=== PATIENT | female | born 1960 | race Caucasian/White ===

== ENCOUNTER 2017-10-22 19:14 | Emergency (ER) | payer MEDICAID ==
[2017-10-22] MEDS ORDERED: HYDROcod/ACETAM 5/325 MG TABLET PO STA (19:37)
--- NOTE | 2017-10-22 19:41 | ED Physician Documentation ---
PD HPI UPPER EXT INJURY - Stated complaint Stated Complaint: R ARM PAIN - Chief complaint Chief Complaint: Ext Problem - History obtained from History obtained from: Patient - History of Present Illness Location: Other (57-year-old woman on multiple psychiatric medications but none new, also a diuretic. She is feeling dizzy all day especially if she stood up she felt lightheaded and felt like she had to sit back down. She had a dizzy episode and slipped and fell injuring her left wrist, no other injuries. No associated chest pain, trouble breathing, or headache.) Review of Systems Constitutional: denies: Fever, Chills Nose: denies: Rhinorrhea / runny nose, Congestion Throat: denies: Sore throat Cardiac: denies: Chest pain / pressure, Palpitations Respiratory: denies: Dyspnea, Cough PD PAST MEDICAL HISTORY - Past Medical History Past Medical History: Yes Psych: Other - Present Medications Home Medications: Ambulatory Orders Medication Instructions Recorded Confirmed Acetaminophen/Diphenhydramine 1 tab PO DAILY 10/22/17 [Tylenol Pm Ex-Strength Caplet] DULoxetine [Cymbalta] 30 mg PO BID 10/22/17 Gabapentin 1,200 mg PO DAILY 10/22/17 lamoTRIgine [Lamictal] 300 mg PO DAILY 10/22/17 rOPINIRole [Requip] 2 tab PO DAILY 10/22/17 - Allergies Allergies/Adverse Reactions: Allergies Allergy/AdvReac Type Severity Reaction Status Date / Time codeine Allergy Emesis Verified 10/22/17 19:25 Sulfa (Sulfonamide Allergy Emesis Verified 10/22/17 19:25 Antibiotics) - Social History Smoking Status: Current every day smoker Does the pt drink ETOH?: Yes ETOH Use: Wine PD ED PE NORMAL - Vitals Vital signs reviewed: Yes - General General: Alert and oriented X 3, No acute distress - HEENT HEENT: PERRL, EOMI - Neck Neck: Supple, no meningeal sign, No bony TTP - Cardiac Cardiac: RRR, No murmur - Respiratory Respiratory: No respiratory distress, Clear bilaterally - Abdomen Abdomen: Normal bowel sounds, Soft, Non tender - Extremities Extremities: Other (Mild tenderness to the right distal radius and elbow without deformity or swelling. Good range of motion. NVI in the hand.) - Neuro Neuro: Alert and oriented X 3, Normal speech Results - Vitals Vitals: Vital Signs - 24 hr 10/22/17 10/22/17 10/22/17 19:21 19:39 19:42 Temperature 37.4 C Heart Rate 93 Heart Rate [ 86 92 Supine] Respiratory 16 Rate Blood Pressure 161/93 H Blood Pressure 141/88 H 128/80 [Supine] O2 Saturation 100 10/22/17 10/22/17 19:44 20:48 Temperature 36.6 C Heart Rate 80 Heart Rate [ 98 Supine] Respiratory 20 Rate Blood Pressure 125/76 Blood Pressure 137/95 H [Supine] O2 Saturation 93 Oxygen O2 Source Room air - EKG (time done) 193 Rate: Rate (enter#) (84) Rhythm: NSR, LAE [place]: Normal Intervals: Normal NM QRS: Normal Ischemia: Normal ST segments Compare to prior EKG: Old EKG unavailable Computer interpretation: Agree with computer - Labs Labs: Laboratory Tests 10/22/17 10/22/17 19:50 19:50 WBC 10.8 RBC 4.52 Hgb 14.2 Hct 42.1 MCV 93.2 MCH 31.4 H MCHC 33.7 RDW 12.7 Plt Count 352 MPV 8.1 Neut # 6.6 Lymph # 3.0 Eddy # 0.7 Eos # 0.4 Baso # 0.1 Absolute Nucleated RBC 0.01 Nucleated RBC % 0.1 Sodium 138 Potassium 3.4 L Chloride 102 Carbon Dioxide 29 Anion Gap 7.0 BUN 10 Creatinine 0.8 Estimated GFR (MDRD) 74 L Glucose 86 Calcium 9.1 Total Bilirubin 0.2 AST 22 ALT 18 Alkaline Phosphatase 78 Total Protein 6.9 Albumin 3.9 Globulin 3.0 Albumin/Globulin Ratio 1.3 Lipase 18 L Ethyl Alcohol < 5.0 - Rads (name of study) XR R wrist and elbow Radiology: EMP read contemporaneously (NAD) PD MEDICAL DECISION MAKING - ED course ED course: 57-year-old woman with symptoms dizzy episodes today. Could be from medications or dehydration. Lab work and EKG are unremarkable. Also has injuries after a fall but x-rays negative. The patient and family were counseled as to the diagnosis and need for follow- up. I counseled the patient with regard to signs and symptoms that would necessitate an urgent reevaluation in the emergency department. They understand they are welcome to return at any time if worse or if not improving as expected. This document was made in part using voice recognition software. While efforts are made to proofread this documents, sound alike and grammatical errors may occur. Departure - Departure Disposition: 01 Home, Self Care Clinical Impression: Dizzy Fall Qualifiers: Encounter type: initial encounter Qualified Code(s): W19.XXXA - Unspecified fall, initial encounter Right wrist sprain Qualifiers: Encounter type: initial encounter Qualified Code(s): S63.501A - Unspecified sprain of right wrist, initial encounter Condition: Good Record reviewed to determine appropriate education?: Yes Instructions: ED Near Syncope Unkn, ED Sprain Wrist Comments: Call your doctor to arrange a follow-up appointment, make the next available appointment. In the interim, return anytime if worse or if new symptoms develop. Your blood pressure was elevated today on check into the emergency department. This does not mean that you have hypertension, it is a common phenomenon to come to the emergency department and have elevated blood pressure. I recommend that you see your primary care physician within the week to have it rechecked when you are feeling better. Discharge Date/Time: 10/22/17 20:49
[2017-10-22] MEDS ORDERED: ACETAMINOPHEN 325 MG TABLET PO STA (19:50)
--- NOTE | 2017-10-22 20:11 | XRAY Preliminary Report ---
Exam: XR ELBOW 3 VIEW RT IMPRESSION: 1. No fracture or malalignment. 2. No effusions. Mild posterior apical swelling. [facility] SITE ID: [id number]
--- NOTE | 2017-10-22 20:15 | XRAY Preliminary Report ---
Exam: XR WRIST 4 VIEW RT IMPRESSION: 1. No fracture or malalignment. 2. Moderate first carpal metacarpal joint arthritis. [facility] SITE ID: [id number]
[2017-10-22 20:18] LABS: BASOPHILS # (AUTO) 0.1 10^3/uL (0.0-0.1); BASOPHILS % (AUTO) 1.1 %; EOSINOPHILS # (AUTO) 0.4 10^3/uL (0.0-0.7); EOSINOPHILS % (AUTO) 3.4 %; HGB - HEMOGLOBIN 14.2 g/dL (12.0-16.0); MEAN CORPUSCULAR HEMOGLOBIN 31.4 pg (27.0-31.0); MEAN CORPUSCULAR HGB CONC 33.7 g/dL (32.0-36.0); MEAN CORPUSCULAR VOLUME 93.2 fL (81.0-99.0); MEAN PLATELET VOLUME 8.1 fL (7.9-10.8); MONOCYTES # (AUTO) 0.7 10^3/uL (0.0-1.0); MONOCYTES % (AUTO) 6.6 %; NEUTROPHILS # (AUTO) 6.6 10^3/uL (1.5-6.6); NEUTROPHILS % (AUTO) 60.9 %; PLT - PLATELET COUNT 352 10^3/uL (130-450); RED BLOOD COUNT 4.52 10^6/uL (4.20-5.40); RED CELL DISTRIBUTION WIDTH 12.7 % (12.0-15.0); WHITE BLOOD COUNT 10.8 x10^3/uL (4.8-10.8)
[2017-10-22 20:29] LABS: ALBUMIN 3.9 g/dL (3.2-5.5); ALBUMIN/GLOBULIN RATIO 1.3 (1.0-2.2); ALKALINE PHOSPHATASE 78 IU/L (42-121); ALT ALANINE AMINOTRANSFERASE 18 IU/L (10-60); AST ASPARTATE AMINOTRANSFERASE 22 IU/L (10-42); BILIRUBIN,TOTAL 0.2 mg/dL (0.2-1.0); BUN - BLOOD UREA NITROGEN 10 mg/dL (6-20); CALCIUM 9.1 mg/dL (8.5-10.3); CARBON DIOXIDE - CO2 29 mmol/L (21-32); CHLORIDE 102 mmol/L (101-111); CREATININE 0.8 mg/dL (0.4-1.0); GFR - MDRD 74 (>89); GLUCOSE 86 mg/dL (70-100); LIPASE 18 U/L (22-51); SODIUM 138 mmol/L (135-145); TOTAL PROTEIN 6.9 g/dL (6.7-8.2)
--- NOTE | 2017-10-22 20:45 | XRAY Report ---
EXAM: RIGHT ELBOW RADIOGRAPHY EXAM DATE: 10/22/2017 07:48 PM. CLINICAL HISTORY: Fall, elbow and wrist injury. COMPARISON: None. TECHNIQUE: 3 views. FINDINGS: Bones: Normal. No fractures or bone lesions. Joints: Normal. No effusion. No subluxation. Soft Tissues: Mild posterior right elbow swelling. No large effusion. IMPRESSION: 1. No fracture or malalignment. 2. No effusions. Mild posterior elbow swelling. [facility] Referring Provider Line: [phone] SITE ID: [id number]
--- NOTE | 2017-10-22 20:46 | XRAY Report ---
EXAM: RIGHT WRIST RADIOGRAPHY EXAM DATE: 10/22/2017 07:48 PM. CLINICAL HISTORY: Fall, elbow and wrist injury. COMPARISON: None. TECHNIQUE: 3 views. FINDINGS: Bones: Normal. No fractures or bone lesions. Joints: No dislocation. Moderate first carpometacarpal joint arthritis. Soft Tissues: Normal. No soft tissue swelling. IMPRESSION: 1. No fracture or malalignment. 2. Moderate first carpometacarpal joint arthritis. [facility] Referring Provider Line: [phone] SITE ID: [id number]
[2017-10-22 20:49] VITALS: BP 125/76
== END 2017-10-22 20:49 | disposition home or self-care (01) ==
LOC: ED 19:14
DX: R42 Dizziness and giddiness (principal); S63.501A Unspecified sprain of right wrist, initial encounter; W01.0XXA Fall on same level from slipping, tripping and stumbling without subsequent striking against object, initial encounter; R03.0 Elevated blood-pressure reading, without diagnosis of hypertension; R94.31 Abnormal electrocardiogram [ECG] [EKG]; F17.200 Nicotine dependence, unspecified, uncomplicated
CPT/HCPCS: 36415; 73080; 73110; 80053; 80320; 83690; 85025; 99283; 99284; A9270

== ENCOUNTER 2017-10-23 14:32 | Emergency (ER) | payer MEDICAID ==
[2017-10-23] MEDS ORDERED: HYDROcod/ACETAM 5/325 MG TABLET PO STA (15:44)
--- NOTE | 2017-10-23 16:15 | XRAY Report ---
EXAM: RIGHT WRIST RADIOGRAPHY EXAM DATE: 10/23/2017 04:06 PM. CLINICAL HISTORY: Wrist pain persists since fall yesterday, injuring right wrist. COMPARISON: 10/22/2017. TECHNIQUE: 3 views. FINDINGS: Bones: Normal. No fractures or bone lesions. Joints: Degenerative narrowing, sclerosis, and spurring at the first carpometacarpal joint. No sublux ations. Soft Tissues: Unremarkable. IMPRESSION: 1. No acute bony abnormalities. 2. Osteoarthritis at the first carpometacarpal joint. [facility] Referring Provider Line: [phone] SITE ID: [id number]
--- NOTE | 2017-10-23 16:18 | ED Physician Documentation ---
PD HPI UPPER EXT INJURY - Stated complaint Stated Complaint: GLF/R HAND INJ - Chief complaint Chief Complaint: Trauma Ext - History obtained from History obtained from: Patient - History of Present Illness Location: Right, Wrist Type of injury: Fall Where injury occurred: Home Timing - onset: Today, Last night Worsened by: Moving, Palpating Associated symptoms: Swelling. No: Weakness, Numbness Recently seen: Emergency Dept - Additonal information Additional information: The patient is a 57-year-old female who presents with pain in her right wrist. She fell yesterday impacting her right wrist on the sidewalk when she fell. She was seen here after that fall, and an x-ray of the right wrist was negative. She presents now because she fell again last night, again impacting her right wrist. She is right hand dominant. She denies any other injuries. She reports episodes of feeling "dizzy," which she more specifically describes as feeling off balance. This usually occurs when she stands up too rapidly, and the incident last night occurred after she had been bending over and then sat up. She denies any recent use of alcohol or other drugs. Her medications include gabapentin and Lamictal. She denies chest pain, shortness of breath, headache, nausea or vomiting. She does report chronic cough from cigarette smoking. Review of Systems Constitutional: denies: Fever Eyes: denies: Decreased vision Ears: denies: Tinnitus/ringing Nose: denies: Congestion Throat: denies: Sore throat Cardiac: denies: Chest pain / pressure, Palpitations Respiratory: reports: Cough (Chronically, with no recent change.). denies: Dyspnea GI: denies: Abdominal Pain, Nausea, Vomiting : denies: Dysuria Skin: denies: Rash Musculoskeletal: reports: Joint pain (right wrist) Neurologic: denies: Focal weakness, Numbness, Altered mental status, Headache PD PAST MEDICAL HISTORY - Past Medical History Cardiovascular: None Respiratory: Emphysema Neuro: None Endocrine/Autoimmune: None Psych: Other - Past Surgical History Past Surgical History: Yes General: Hiatal hernia repair /[facility] [facility]: 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 - Present Medications Home Medications: Ambulatory Orders Medication Instructions Recorded Confirmed Acetaminophen/Diphenhydramine 1 tab PO DAILY 10/22/17 [Tylenol Pm Ex-Strength Caplet] DULoxetine [Cymbalta] 30 mg PO BID 10/22/17 Gabapentin 1,200 mg PO DAILY 10/22/17 lamoTRIgine [Lamictal] 300 mg PO DAILY 10/22/17 rOPINIRole [Requip] 2 tab PO DAILY 10/22/17 traMADol [Ultram] 50 mg PO Q4-6H PRN #12 tablet 10/23/17 - Allergies Allergies/Adverse Reactions: Allergies Allergy/AdvReac Type Severity Reaction Status Date / Time codeine Allergy Emesis Verified 10/22/17 19:25 Sulfa (Sulfonamide Allergy Emesis Verified 10/22/17 19:25 Antibiotics) - Social History Does the pt smoke?: Yes Smoking Status: Current every day smoker Does the pt drink ETOH?: Yes Does the pt have substance abuse?: No - Immunizations Immunizations are current?: Yes - POLST Patient has POLST: No PD ED PE NORMAL - Vitals Vital signs reviewed: Yes (normal) - General General: Alert and oriented X 3, Well developed/nourished, Other (frail- appearing) - HEENT HEENT: Atraumatic, EOMI, Pharynx benign - Neck Neck: No adenopathy, No JVD - Cardiac Cardiac: RRR, No murmur - Respiratory Respiratory: Clear bilaterally - Abdomen Abdomen: Soft, Non tender - Back Back: No CVA TTP, No spinal TTP - Derm Derm: No rash - Extremities Extremities: Other (There is ecchymosis over the volar aspect of the right wrist , with associated tenderness to palpation. There is no deformity or break in the integument. Distal neurovascular is intact.) - Neuro Neuro: Alert and oriented X 3, No motor deficit, No sensory deficit, Normal speech Results - Vitals Vitals: Oxygen O2 Source Room air - Rads (name of study) right wrist Radiology: Prelim report reviewed, EMP read contemporaneously, See rad report ( No acute bony abnormality. Osteoarthritis first MCP joint.) PD MEDICAL DECISION MAKING - ED course Complexity details: reviewed old records, reviewed results, re-evaluated patient , considered differential, d/w patient ED course: The patient's presentation is significant for contusion to her right wrist, without evidence of fracture on x-ray examination. The cause of her recurrent fall may have to do with the medication she takes, including gabapentin. While in the emergency department she demonstrated ability to ambulate without any difficulty with her balance, or any lightheadedness. I offered a Velcro wrist splint, but the patient preferred to have an Frank compression bandage. She is being discharged with a prescription for tramadol, 12 tablets. I discussed with her the results of her x-ray, symptomatic treatment and outpatient follow- up, as well as potentially worrisome signs or symptoms that should prompt reevaluation in the emergency department. Departure - Departure Disposition: 01 Home, Self Care Clinical Impression: Contusion of right wrist, initial encounter Fall Qualifiers: Encounter type: initial encounter Qualified Code(s): W19.XXXA - Unspecified fall, initial encounter Condition: Stable Instructions: ED Contusion Upper Ext Follow-Up: [facility] [Provider Group] Prescriptions: traMADol [Ultram] 50 mg PO Q4-6H PRN #12 tablet PRN Reason: Pain Comments: Keep your right hand elevated above the level of your heart as much the time as possible. Use the Frank wrap if it provides comfort. You can use Tylenol or ibuprofen if needed for pain. He can also use tramadol as prescribed if needed for pain. Follow up with your primary physician within 2 weeks. Call to schedule an appointment. Return to the emergency department if you develop increasing pain or otherwise worsening symptoms. Discharge Date/Time: 10/23/17 17:30
[2017-10-23 17:29] VITALS: BP 104/71
== END 2017-10-23 17:30 | disposition home or self-care (01) ==
LOC: ED 14:32
DX: S60.211A Contusion of right wrist, initial encounter (principal); W01.0XXA Fall on same level from slipping, tripping and stumbling without subsequent striking against object, initial encounter; Y92.480 Sidewalk as the place of occurrence of the external cause; Y92.009 Unspecified place in unspecified non-institutional (private) residence as the place of occurrence of the external cause; F17.200 Nicotine dependence, unspecified, uncomplicated
CPT/HCPCS: 73110; 99283; A9270

== ENCOUNTER 2017-11-19 09:00 | Outpatient (CLI) | payer MEDICAID ==
[2017-11-19 13:04] LABS: BASOPHILS # (AUTO) 0.1 10^3/uL (0.0-0.1); BASOPHILS % (AUTO) 1.3 %; EOSINOPHILS # (AUTO) 1.4 10^3/uL (0.0-0.7); EOSINOPHILS % (AUTO) 12.6 %; HGB - HEMOGLOBIN 15.5 g/dL (12.0-16.0); LYMPHOCYTES # (AUTO) 3.7 10^3/uL (1.5-3.5); MEAN CORPUSCULAR HEMOGLOBIN 31.4 pg (27.0-31.0); MEAN CORPUSCULAR HGB CONC 33.1 g/dL (32.0-36.0); MEAN CORPUSCULAR VOLUME 94.7 fL (81.0-99.0); MEAN PLATELET VOLUME 9.5 fL (7.9-10.8); MONOCYTES % (AUTO) 8.7 %; NEUTROPHILS # (AUTO) 4.9 10^3/uL (1.5-6.6); NEUTROPHILS % (AUTO) 44.4 %; PLT - PLATELET COUNT 334 10^3/uL (130-450); RED BLOOD COUNT 4.95 10^6/uL (4.20-5.40); RED CELL DISTRIBUTION WIDTH 12.4 % (12.0-15.0); WHITE BLOOD COUNT 11.1 x10^3/uL (4.8-10.8)
[2017-11-19 13:17] LABS: ALBUMIN 3.7 g/dL (3.2-5.5); ALBUMIN/GLOBULIN RATIO 1.4 (1.0-2.2); ALKALINE PHOSPHATASE 76 IU/L (42-121); ALT ALANINE AMINOTRANSFERASE 18 IU/L (10-60); AST ASPARTATE AMINOTRANSFERASE 20 IU/L (10-42); BILIRUBIN,TOTAL 0.3 mg/dL (0.2-1.0); BUN - BLOOD UREA NITROGEN 11 mg/dL (6-20); CALCIUM 8.7 mg/dL (8.5-10.3); CARBON DIOXIDE - CO2 23 mmol/L (21-32); CHLORIDE 111 mmol/L (101-111); CHOLESTEROL 209 mg/dL; CREATININE 0.7 mg/dL (0.4-1.0); GFR - MDRD 86 (>89); GLUCOSE 98 mg/dL (70-100); HDL CHOLESTEROL 52 mg/dL; LDL CHOLESTEROL,CALCULATED 146 mg/dL; LDL/HDL RATIO 2.8 (<4.4); SODIUM 141 mmol/L (135-145); TOTAL PROTEIN 6.4 g/dL (6.7-8.2); VLDL CHOLESTEROL 11 mg/dL
[2017-11-19 13:25] LABS: PLATELET ESTIMATE, MANUAL NORMAL (130-450,000) (NORMAL); PLATELET MORPHOLOGY NORMAL APPEARANCE (NORMAL); RBC MORPHOLOGY (MULTIPLE) NORMAL APPEARANCE (NORMAL)
== END 2017-11-19 09:01 | disposition home or self-care (01) ==
LOC: LAB.N 09:00
PROVIDERS: ATTEND Physician Assistant Medical
DX: Z00.00 Encounter for general adult medical examination without abnormal findings (principal)
CPT/HCPCS: 36415; 80050; 80061; 82306; 83721

== ENCOUNTER 2017-12-07 01:14 | Outpatient (CLI) | payer MEDICAID | END 2017-12-07 01:15 | disposition critical access hospital (66) | LOC: EMS 01:14 | PROVIDERS: ATTEND Surgery | DX: M54.5 Low back pain (principal); M54.2 Cervicalgia; R42 Dizziness and giddiness; W18.39XA Other fall on same level, initial encounter; Y92.002 Bathroom of unspecified non-institutional (private) residence as the place of occurrence of the external cause | CPT/HCPCS: A0425; A0429 ==

== ENCOUNTER 2017-12-07 02:06 | Emergency (ER) | payer MEDICAID ==
--- NOTE | 2017-12-07 03:25 | ED Physician Documentation ---
PD HPI Fall - Stated complaint Stated Complaint: GLF, NECK PAIN, HEAD PAIN, BACK PAIN - Chief complaint Chief Complaint: Trauma Hd/Nk - History obtained from History obtained from: Patient, EMS - History of Present Illness Mechanism of injury: Slipped Fall distance: Standing position Where injury occurred: Home Timing - onset: Today Injury(ies) location: Neck, Back, Left Lower Extremity Quality of pain: Pain, Aching Associated symptoms: No: LOC, AMS Contributing factors: Intoxicated Similar symptoms before: Work up / diagnostics, Treatment Recently seen: Not recently seen - Additional information Additional information: Patient is a 57 year old female who is presenting to the emergency department for falling. According to patient and ems patient had about three glasses of wine tonight. Patient was in the bathroom when she slipped and landed on her tailbone and left hip. after she landed she hit her neck on the bathtub. patient was recently seen in the emergency department for another fall where she broke her wrist. Patient had alcohol on her breath. Review of Systems Constitutional: denies: Fever, Chills Eyes: reports: Reviewed and negative Ears: reports: Reviewed and negative Nose: denies: Epistaxis Throat: denies: Dental pain / toothache Cardiac: denies: Chest pain / pressure, Palpitations Respiratory: denies: Dyspnea, Cough GI: denies: Nausea, Vomiting : reports: Reviewed and negative Skin: denies: Abrasion (s), Laceration (s) Musculoskeletal: reports: Neck pain, Back pain, Extremity pain Neurologic: denies: Generalized weakness, Focal weakness Psychiatric: reports: Anxiety PD PAST MEDICAL HISTORY - Past Medical History Past Medical History: Yes Cardiovascular: None Respiratory: Emphysema Neuro: None Endocrine/Autoimmune: None Psych: Depression, Anxiety, Other Other Past Medical History: Mood swings - Past Surgical History Past Surgical History: Yes General: Hiatal hernia repair /[employer]: 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 - Present Medications Home Medications: Ambulatory Orders Medication Instructions Recorded Confirmed Acetaminophen/Diphenhydramine 1 tab PO DAILY 10/22/17 [Tylenol Pm Ex-Strength Caplet] DULoxetine [Cymbalta] 30 mg PO BID 10/22/17 Gabapentin 1,200 mg PO DAILY 10/22/17 lamoTRIgine [Lamictal] 300 mg PO DAILY 10/22/17 rOPINIRole [Requip] 2 tab PO DAILY 10/22/17 traMADol [Ultram] 50 mg PO Q4-6H PRN #12 tablet 10/23/17 - Allergies Allergies/Adverse Reactions: Allergies Allergy/AdvReac Type Severity Reaction Status Date / Time codeine Allergy Emesis Verified 12/07/17 02:29 Sulfa (Sulfonamide Allergy Emesis Verified 12/07/17 02:29 Antibiotics) - Social History Does the pt smoke?: Yes Smoking Status: Current every day smoker Does the pt drink ETOH?: Yes Does the pt have substance abuse?: No - Immunizations Immunizations are current?: Yes - POLST Patient has POLST: No PD ED PE NORMAL - General General: Alert and oriented X 3 - Cardiac Cardiac: RRR - Respiratory Respiratory: No respiratory distress - Abdomen Abdomen: Non distended - Derm Derm: Normal color PD ED PE EXPANDED - General General: Alert, Anxious - Neck Neck: Soft tissue TTP, Bony TTP. No: Limited ROM - Back Back: Other (tenderness over coccyx and left hip) - Derm Derm: No: Abrasion (s), Bruising, Laceration(s) - Extremities Extremities: Right forearm (in cast), Left hip (tenderness to palpation of left posterior hip) Results - Vitals Vitals: Vital Signs - 24 hr 12/07/17 12/07/17 12/07/17 02:07 03:13 03:38 Temperature 36.8 C Heart Rate 97 83 75 Respiratory 66 H 19 20 Rate Blood Pressure 96/67 100/63 112/72 O2 Saturation 98 99 95 12/07/17 04:00 Temperature Heart Rate 76 Respiratory 19 Rate Blood Pressure 104/73 O2 Saturation 98 Oxygen O2 Source Room air - Rads (name of study) SI joints/hip Radiology: Final report received (normal) ct cervical spine Radiology: Final report received, See rad report (no acute fracture or dislocation) PD MEDICAL DECISION MAKING - ED course Complexity details: reviewed old records, reviewed results, re-evaluated patient , considered differential, d/w patient ED course: Patient was seen and examined at bedside. patient was sent for imaging. When patient returned the results were reviewed. there were no acute fractures or dislocations. patient's C collar was cleared. patient required no further inpatient work up. patient ambulated out of the emergency department without any difficulty. Departure - Departure Disposition: 01 Home, Self Care Clinical Impression: Fall Condition: Good Instructions: ED Prevention Fall Follow-Up: Roya,Anurag, PA-C [Primary Care Provider] - As Needed Comments: Your diagnostics today were within normal limits. there are no acute fractures or dislocations. you should take motrin or tylenol as needed for pain and follow up with your doctor.
--- NOTE | 2017-12-07 03:31 | XRAY Preliminary Report ---
Exam: XR HIP W/PELVIS 2-3V LT IMPRESSION: Negative left hip, pelvis, and sacrococcygeal radiography. [facility] SITE ID: [id number]
--- NOTE | 2017-12-07 03:31 | XRAY Preliminary Report ---
Exam: XR SACRUM/COCCYX IMPRESSION: Negative left hip, pelvis, and sacrococcygeal radiography. [facility] SITE ID: [id number]
--- NOTE | 2017-12-07 03:32 | CT Preliminary Report ---
Exam: CT CERVICAL SPINE W/O IMPRESSION: No evidence of cervical spine fracture. [facility] SITE ID: [id number]
--- NOTE | 2017-12-07 03:33 | CT Report ---
EXAM: CT CERVICAL SPINE WITHOUT CONTRAST DATE: 12/07/2017 03:14 AM. HISTORY: Fall, neck, hip, low back pain. COMPARISONS: None. TECHNIQUE: Thin-section axial images were acquired of the cervical spine without contrast. Post-proce ssing: Coronal and sagittal reformats. Other: None. In accordance with CT protocol optimization, one or more of the following dose reduction techniques w ere utilized for this exam: automated exposure control, adjustment of mA and/or KV based on patient s ize, or use of iterative reconstructive technique. FINDINGS: Alignment: No scoliosis or spondylolisthesis. Bones: No fracture or bone lesion. Interspace Levels/Facets: C1-C2: Unremarkable. C2-C3: Unremarkable. C3-C4: Unremarkable. C4-C5: Unremarkable. C5-C6: There is disk height loss. There is a mild disk osteophyte complex. There is no central canal narrowing. There is moderate bilateral neural foraminal narrowing. C6-C7: There is a disk osteophyte complex. There is no CT evidence of significant central canal narro wing. C7-T1: Unremarkable. Musculature: Normal. No fatty atrophy. Other: The paravertebral and prevertebral soft tissues are unremarkable. The lung apices are clear. IMPRESSION: No evidence of cervical spine fracture. [facility] Referring Provider Line: [phone] SITE ID: [id number]
--- NOTE | 2017-12-07 03:37 | XRAY Report ---
EXAM: LEFT HIP, SACROCOCCYGEAL, AND PELVIS RADIOGRAPHY EXAM DATE: 12/07/2017 03:16 AM. HISTORY: Fall, neck, hip, low back pain. COMPARISONS: None. TECHNIQUE: 1 view of the pelvis, 2 views of the left hip, and 3 views of the sacrum/coccyx. FINDINGS: Bones: Normal. No fracture or bone lesion. Joints: The bilateral hip, pubis symphysis, and sacroiliac joints are preserved. Soft Tissues: Normal. No soft tissue swelling. IMPRESSION: Negative left hip, pelvis, and sacrococcygeal radiography. [facility] Referring Provider Line: [phone] SITE ID: [id number]
--- NOTE | 2017-12-07 03:37 | XRAY Report ---
EXAM: LEFT HIP, SACROCOCCYGEAL, AND PELVIS RADIOGRAPHY EXAM DATE: 12/07/2017 03:16 AM. HISTORY: Fall, neck, hip, low back pain. COMPARISONS: None. TECHNIQUE: 1 view of the pelvis, 2 views of the left hip, and 3 views of the sacrum/coccyx. FINDINGS: Bones: Normal. No fracture or bone lesion. Joints: The bilateral hip, pubis symphysis, and sacroiliac joints are preserved. Soft Tissues: Normal. No soft tissue swelling. IMPRESSION: Negative left hip, pelvis, and sacrococcygeal radiography. [facility] Referring Provider Line: [phone] SITE ID: [id number]
[2017-12-07 04:06] VITALS: BP 104/73
== END 2017-12-07 04:04 | disposition home or self-care (01) ==
LOC: EDUNIT# → ED 02:06
DX: Z04.3 Encounter for examination and observation following other accident (principal); W01.0XXA Fall on same level from slipping, tripping and stumbling without subsequent striking against object, initial encounter; Y92.002 Bathroom of unspecified non-institutional (private) residence as the place of occurrence of the external cause; J43.9 Emphysema, unspecified; F17.200 Nicotine dependence, unspecified, uncomplicated
CPT/HCPCS: 72125; 72220; 99283; 99284

== ENCOUNTER 2017-12-20 21:01 | Outpatient (CLI) | payer MEDICAID | END 2017-12-20 21:02 | disposition critical access hospital (66) | LOC: EMS 21:01 | PROVIDERS: ATTEND Surgery | DX: R07.81 Pleurodynia (principal); M54.9 Dorsalgia, unspecified; M25.552 Pain in left hip; R42 Dizziness and giddiness; W18.39XA Other fall on same level, initial encounter; W22.8XXA Striking against or struck by other objects, initial encounter; Y93.01 Activity, walking, marching and hiking; Y92.002 Bathroom of unspecified non-institutional (private) residence as the place of occurrence of the external cause ==

== ENCOUNTER 2017-12-20 21:29 | Emergency (ER) | payer MEDICAID ==
--- NOTE | 2017-12-20 21:33 | ED Physician Documentation ---
History of Present Illness - Stated complaint Stated Complaint: DIZZY - FELL ON TUB - LEFT RIB AND HIP PAIN - History obtained from History obtained from: Patient - History of Present Illness Timing: Prior to arrival Pain level now: 9 Improved by: rest Worsened by: movement, palpation, breathing - Additonal information Additional information: fell tonight at home while in her bathroom. patient says she fell due to dizziness, did not hit her head and did not have LOC. She moved to [place] in July 2017. This is her fourth [facility] ED visit past 2 months; other visits were also fall/injury related. She says she is being evaluated in the outpatient setting for these falls, and has seen orthopedic surgery (has RULj cast). tonight, c/o left lower rib pain that is worse with deep inspiration, left hip pain worse with movement, and left abdominal pain worse with palpation and movement. Review of Systems Cardiac: reports: Reviewed and negative Respiratory: reports: Reviewed and negative GI: reports: Abdominal Pain. denies: Abdominal Swelling, Nausea, Vomiting, Constipation, Diarrhea : denies: Dysuria, Frequency, Incontinent Skin: reports: Reviewed and negative Musculoskeletal: reports: Joint pain. 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 - Present Medications Home Medications: Ambulatory Orders Medication Instructions Recorded Confirmed DULoxetine [Cymbalta] 30 mg PO BID 10/22/17 Gabapentin 1,200 mg PO DAILY 10/22/17 lamoTRIgine [Lamictal] 300 mg PO DAILY 10/22/17 oxyCODONE/ACET 5/325 [Percocet 5 1 - 2 each PO Q6H PRN #14 tablet 12/20/17 mg/325 mg] - Allergies Allergies/Adverse Reactions: Allergies Allergy/AdvReac Type Severity Reaction Status Date / Time codeine Allergy Emesis Verified 12/20/17 21:35 Sulfa (Sulfonamide Allergy Emesis Verified 12/20/17 21:35 Antibiotics) - Social History Does the pt smoke?: Yes Smoking Status: Current every day smoker Does the pt drink ETOH?: Yes Does the pt have substance abuse?: No - Immunizations Immunizations are current?: Yes - POLST Patient has POLST: No PD ED PE NORMAL - Vitals Vital signs reviewed: Yes - General General: Alert and oriented X 3, Well developed/nourished, Other (mostly NAD but appears in pain with exam ) - HEENT HEENT: PERRL, EOMI, Moist mucous membranes - Neck Neck: No bony TTP - Cardiac Cardiac: RRR, No murmur - Respiratory Respiratory: No respiratory distress, Clear bilaterally - Abdomen Abdomen: Soft, Non distended, Other (LUQ>LLQ tenderness without rebound or guarding) - Back Back: No CVA TTP, No spinal TTP - Derm Derm: Normal color, Warm and dry - Extremities Extremities: No deformity, No edema, Other (left hip and proximal thigh tenderness to palpation with limited ROM due to pain) - Neuro Neuro: Alert and oriented X 3, 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, No motor deficit, No sensory deficit, Normal speech Eye Opening: Spontaneous Motor: Obeys Commands Verbal: Oriented GCS Score: 15 - Free text exam Free text exam: tenderness to palpation left anterolateral chest wall without crepitus or 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 Results - Vitals Vitals: Vital Signs - 24 hr 12/20/17 12/20/17 21:29 22:45 Temperature 36.8 C Heart Rate 77 81 Respiratory 23 19 Rate Blood Pressure 153/92 H 126/77 O2 Saturation 95 95 Oxygen O2 Source Room air - EKG (time done) No standard instances Rate: Rate (enter#) (82) Rhythm: NSR [place]: Normal Intervals: Normal [place] QRS: Normal Ischemia: Normal ST segments - Labs Labs: Laboratory Tests 12/20/17 12/20/17 12/20/17 22:11 22:11 22:11 WBC 9.6 RBC 4.50 Hgb 13.9 Hct 41.6 MCV 92.6 MCH 31.0 MCHC 33.5 RDW 12.8 Plt Count 395 MPV 7.7 L Neut # 5.5 Lymph # 2.2 [place] # 1.0 Eos # 0.8 H Baso # 0.1 Absolute Nucleated RBC 0.01 Nucleated RBC % 0.1 Sodium 140 Potassium 3.6 Chloride 101 Carbon Dioxide 31 Anion Gap 8.0 BUN 11 Creatinine 1.1 H Estimated GFR (MDRD) 51 L Glucose 103 H Calcium 9.5 Troponin I < 0.04 - Rads (name of study) CT A/P Radiology: Prelim report reviewed, See rad report chest xray Radiology: Prelim report reviewed, See rad report left hip xrays Radiology: Prelim report reviewed, See rad report PD MEDICAL DECISION MAKING - ED course Complexity details: reviewed old records, reviewed results, re-evaluated patient , considered differential, d/w patient Departure - Departure Disposition: 01 Home, Self Care Clinical Impression: Fall, Dizzy, Rib fractures Condition: Good Instructions: ED Dizziness UKO, ED Fx Rib Follow-Up: Anurag Pryor PA-C [Primary Care Provider] - Within 1 week Prescriptions: oxyCODONE/ACET 5/325 [Percocet 5 mg/325 mg] 1 - 2 each PO Q6H PRN #14 tablet PRN Reason: Pain Discharge Date/Time: 12/21/17 00:07
[2017-12-20] MEDS ORDERED: MORPHINE 2 MG/ML SYRINGE IVP STA ×2 (21:54→23:37)
[2017-12-20] MEDS ORDERED: IOPAMIDOL-300 100 ML VIAL ONE (22:13)
[2017-12-20 22:16] LABS: BASOPHILS # (AUTO) 0.1 10^3/uL (0.0-0.1); BASOPHILS % (AUTO) 0.7 %; EOSINOPHILS # (AUTO) 0.8 10^3/uL (0.0-0.7); EOSINOPHILS % (AUTO) 8.6 %; HGB - HEMOGLOBIN 13.9 g/dL (12.0-16.0); LYMPHOCYTES # (AUTO) 2.2 10^3/uL (1.5-3.5); MEAN CORPUSCULAR HGB CONC 33.5 g/dL (32.0-36.0); MEAN CORPUSCULAR VOLUME 92.6 fL (81.0-99.0); MEAN PLATELET VOLUME 7.7 fL (7.9-10.8); MONOCYTES % (AUTO) 10.2 %; NEUTROPHILS # (AUTO) 5.5 10^3/uL (1.5-6.6); NEUTROPHILS % (AUTO) 57.5 %; PLT - PLATELET COUNT 395 10^3/uL (130-450); RED CELL DISTRIBUTION WIDTH 12.8 % (12.0-15.0); WHITE BLOOD COUNT 9.6 x10^3/uL (4.8-10.8)
[2017-12-20 22:25] LABS: CALCIUM 9.5 mg/dL (8.5-10.3); CREATININE 1.1 mg/dL (0.4-1.0)
[2017-12-20] MEDS ORDERED: IOPAMIDOL-300 100 ML VIAL IVP ONE (22:39)
--- NOTE | 2017-12-20 22:46 | XRAY Report ---
EXAM: LEFT HIP AND PELVIS RADIOGRAPHY EXAM DATE: 12/20/2017 10:40 PM. HISTORY: Fall, pain, tenderness. COMPARISONS: 12/07/2017. TECHNIQUE: 1 view of the pelvis and 1 view of the hip. FINDINGS: Bones: No fracture seen. Joints: The bilateral hip, pubis symphysis, and sacroiliac joints are preserved. Soft Tissues: Pessary in place. IMPRESSION: 1. No acute abnormality seen in the pelvis or hip. [facility] Referring Provider Line: [phone] SITE ID: [id number]
--- NOTE | 2017-12-20 22:46 | XRAY Preliminary Report ---
Exam: XR HIP W/PELVIS 2-3V LT IMPRESSION: 1. No acute abnormality seen in the pelvis or hip. [facility] SITE ID: [id number]
--- NOTE | 2017-12-20 22:47 | XRAY Preliminary Report ---
Exam: XR CHEST 2 VIEW X-RAY IMPRESSION: 1. Large lung volumes. No acute abnormality seen. [facility] SITE ID: [id number]
--- NOTE | 2017-12-20 22:47 | XRAY Report ---
EXAM: CHEST RADIOGRAPHY EXAM DATE: 12/20/2017 10:39 PM. CLINICAL HISTORY: Left chest pain, dyspnea, fell. COMPARISON: None. TECHNIQUE: 2 views. FINDINGS: Lungs/Pleura: Large lung volumes. No alveolar consolidation or pleural effusion seen. No pneumothorax . Mediastinum: Heart size is normal. Aortic atherosclerosis. Other: None. IMPRESSION: 1. Large lung volumes. No acute abnormality seen. [facility] Referring Provider Line: [phone] SITE ID: [id number]
[2017-12-20 23:02] VITALS: BP 126/77
--- NOTE | 2017-12-20 23:04 | CT Preliminary Report ---
Exam: CT ABDOMEN/PELVIS W/ IMPRESSION: 1. Fractures of at least the left 10th and 11th ribs. 2. Fatty liver. 3. Small stones in the gallbladder without evidence of cholecystitis. 4. Colonic diverticulosis. No diverticulitis identified. 5. Colon is mostly collapsed and appears mildly thickened. This may simply represent nondistention. L ow-grade colitis also possible. [facility] SITE ID: [id number]
--- NOTE | 2017-12-20 23:04 | CT Report ---
EXAM: CT ABDOMEN AND PELVIS EXAM DATE: 12/20/2017 10:50 PM. CLINICAL HISTORY: Left-sided pain after injury. COMPARISONS: None. TECHNIQUE: Routine helical CT imaging was performed through the abdomen and pelvis. IV contrast: 100M L ISOVUE 300. Enteric contrast: No. Reconstructions: Coronal and sagittal. In accordance with CT protocol optimization, one or more of the following dose reduction techniques w ere utilized for this exam: automated exposure control, adjustment of mA and/or KV based on patient s ize, or use of iterative reconstructive technique. FINDINGS: Lung Bases: Unremarkable. Liver: Possible fatty infiltration. Small right lobe cyst. Gallbladder/Bile Ducts: Small calcified stones in the gallbladder without evidence of cholecystitis. Spleen: Normal. Pancreas: Normal. Adrenal Glands: Normal. Kidneys: Normal. No masses or hydronephrosis. Peritoneal Cavity/Bowel: No bowel obstruction seen. Colonic diverticulosis. No diverticulitis identif ied. Colon is mostly collapsed and appears mildly thickened. No bowel obstruction seen. No free air o r free fluid. No lymphadenopathy. Appendix appears normal. Pelvic Organs: Uterus is not seen. Pessary in place. Visualized pelvic organs are otherwise unremarka ble. Vasculature: Mild to moderate atherosclerosis. No aortic aneurysm seen. Bones: Fractures of at least the left 10th and 11th ribs. Degenerative changes in the spine. Other: None. IMPRESSION: 1. Fractures of at least the left 10th and 11th ribs. 2. Fatty liver. 3. Small stones in the gallbladder without evidence of cholecystitis. 4. Colonic diverticulosis. No diverticulitis identified. 5. Colon is mostly collapsed and appears mildly thickened. This may simply represent nondistention. L ow-grade colitis also possible. [facility] Referring Provider Line: [phone] SITE ID: [id number]
[2017-12-20] MEDS ORDERED: oxyCODONE/ACET 5/325 Prepack 4 PO STA (23:37)
== END 2017-12-21 00:07 | disposition home or self-care (01) ==
LOC: EDUNIT# → ED 21:29
DX: S22.42XA Multiple fractures of ribs, left side, initial encounter for closed fracture (principal); W01.198A Fall on same level from slipping, tripping and stumbling with subsequent striking against other object, initial encounter; Y93.E1 Activity, personal bathing and showering; Y92.002 Bathroom of unspecified non-institutional (private) residence as the place of occurrence of the external cause; F17.200 Nicotine dependence, unspecified, uncomplicated
CPT/HCPCS: 36415; 71046; 73502; 74177; 80048; 84484; 85025; 93005; 96374; 96376; 99284; J2270; Q9967

== ENCOUNTER 2018-01-08 20:42 | Emergency (ER) | payer MEDICAID ==
[2018-01-08] MEDS ORDERED: IBUPROFEN 400 MG TABLET PO STA (21:51)
[2018-01-08] MEDS ORDERED: LIDOCAINE PATCH 5% TOP PRN (21:51)
[2018-01-08] MEDS ORDERED: oxyCOD/ACETAMIN 5 MG/325 MG TABLET PO STA (21:51)
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
[2018-01-08] MEDS ORDERED: oxyCODONE 5 MG TABLET PO STA (22:53)
[2018-01-08] MEDS ORDERED: oxyCODONE/ACET 5/325 Prepack 4 PO STA (23:38)
--- NOTE | 2018-01-08 23:46 | XRAY Report ---
EXAM: RIGHT SHOULDER RADIOGRAPHY EXAM DATE: 01/08/2018 11:37 PM. CLINICAL HISTORY: Injury/fall. COMPARISON: None. TECHNIQUE: 3 views. FINDINGS: Bones: There is varus angulated fracture through the anatomic neck of the right humerus. Joints: No evidence of dislocation. Soft tissues: No unexpected soft tissue findings. IMPRESSION: There is varus angulated fracture through the anatomic neck of the right humerus. No evid ence of dislocation. [facility] Referring Provider Line: [phone] SITE ID: [id number]
--- NOTE | 2018-01-08 23:47 | XRAY Report ---
EXAM: RIGHT HUMERUS RADIOGRAPHY EXAM DATE: 01/08/2018 11:37 PM. CLINICAL HISTORY: Fall injury. COMPARISON: None. TECHNIQUE: 2 views. FINDINGS: Findings within the proximal humerus are detailed separately. Distally, there is no evidence of fract ure or dislocation. IMPRESSION: Findings within the proximal humerus are detailed separately. Distally, there is no evide nce of fracture or dislocation. [facility] Referring Provider Line: [phone] SITE ID: [id number]
[2018-01-09 00:12] VITALS: BP 139/87
== END 2018-01-09 00:17 | disposition home or self-care (01) ==
LOC: ED 20:42
DX: S42.291A Other displaced fracture of upper end of right humerus, initial encounter for closed fracture (principal); W18.39XA Other fall on same level, initial encounter; Z91.81 History of falling; Y92.009 Unspecified place in unspecified non-institutional (private) residence as the place of occurrence of the external cause; F17.200 Nicotine dependence, unspecified, uncomplicated
CPT/HCPCS: 73030; 73060; 99283; 99284; A9270

== ENCOUNTER 2018-01-14 15:08 | Outpatient (CLI) | payer MEDICAID ==
--- NOTE | 2018-01-15 17:11 | CT Report ---
EXAM: RIGHT SHOULDER CT WITHOUT CONTRAST. EXAM DATE: 01/14/2018 03:36 PM. CLINICAL HISTORY: neer 2 part displaced fracture of surgical neck of right. Fall 2 days ago. COMPARISON: Radiograph 01/08/2018. TECHNIQUE: Thin-section axial images were acquired of the shoulder without contrast. Post-processing: Oblique coronal and sagittal reformats. Other: None. In accordance with CT protocol optimization, one or more of the following dose reduction techniques w ere utilized for this exam: automated exposure control, adjustment of mA and/or KV based on patient s ize, or use of iterative reconstructive technique. FINDINGS: Bones: Mildly comminuted and displaced fracture at the proximal humerus. Primary fracture line extend s obliquely through the surgical neck into the greater and lesser tuberosities. Primary distal fractu re fragment is displaced anteromedially 1.5 cm and impacted 3.2 cm. Minimally displaced 2.2 cm fracture fragment at the lesser tuberosity. Acromioclavicular Region: Type II acromion. Mild to moderate degenerative change at the joint. With i nferiorly-directed osteophyte at the distal clavicle. Glenohumeral Joint: Alignment grossly anatomic. Moderate joint effusion. No intra-articular fracture fragments. Musculature: No gross fatty atrophy. Mild to moderate edema in musculature adjacent to the glenohumer al joint. Other: Mild centrilobular emphysematous changes partially visualized throughout the right lung. Lobul ated scar present in the right lung apex. 3 primary ovoid components measuring 0.4 cm, 1.0 cm, and 1. 3 cm in diameter. IMPRESSION: 1. Mildly comminuted and displaced and moderately impacted fracture proximal humerus (Neer 2 part fra cture). 2. Moderate glenohumeral joint effusion. 3. Mild to moderate edema in musculature adjacent to the glenohumeral joint. 4. Centrilobular emphysema. Lobulated scar in the right lung apex with focal component measuring up t o 1.3 cm. Recommend correlate with any prior chest CT to evaluate stability. If none have been perfor med, dedicated chest CT with IV contrast recommended for further characterization. [facility] Referring Provider Line: [phone] SITE ID: [id number]
== END 2018-01-14 15:09 | disposition home or self-care (01) ==
LOC: DI 15:08
PROVIDERS: ATTEND Orthopaedic Surgery
DX: S42.221A 2-part displaced fracture of surgical neck of right humerus, initial encounter for closed fracture (principal)

== ENCOUNTER 2018-01-18 14:47 | Outpatient (CLI) | payer MEDICAID | END 2018-01-18 14:48 | LOC: LAB.N 14:47 | PROVIDERS: ATTEND Physician Assistant Medical | DX: Z51.81 Encounter for therapeutic drug level monitoring (principal); Z79.899 Other long term (current) drug therapy | CPT/HCPCS: 36415; 80175 ==

== ENCOUNTER 2018-01-19 16:00 | Emergency (ER) | payer MEDICAID ==
[2018-01-19 16:21] VITALS: BP 123/64
--- NOTE | 2018-01-19 17:53 | ED Physician Documentation ---
PD HPI UPPER EXT INJURY - Stated complaint Stated Complaint: BUMPS ON RT ARM - Chief complaint Chief Complaint: Ext Problem - History obtained from History obtained from: Patient - History of Present Illness Location: Right, Shoulder, Arm Type of injury: Fall Where injury occurred: Home Timing - onset: How many days ago (10) Timing - duration: Days (10) Timing - details: Abrupt onset, Still present Improved by: Rest, Immobilization Worsened by: Moving, Palpating Associated symptoms: Swelling, Discolored. No: Weakness, Numbness Contributing factors: No: Anticoagulated Similar symptoms before: Diagnosis (fracture) Recently seen: Clinic, Emergency Dept - Additonal information Additional information: 57-year-old female had a fall 10 days ago and injured her right shoulder with a surgical neck fracture of the humerus. She has been placed into an immobilizer and has had follow-up with Dr. Knowles and has had a CT scan of the shoulder and is expecting to have surgery done on 01/26/2018. Today she is in the emergency department with concerns of areas of swelling and tenderness. She can readily see the blood has tracked down into the forearm and there are tender areas where the blood is and there is a mass at the end of the biceps that is tender as well. She is able to flex and extend the elbow supinate and pronate at the elbow and she has a healing fracture of the wrist that she is able to move through a fair range of motion. 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 - Present Medications Home Medications: Ambulatory Orders Medication Instructions Recorded Confirmed DULoxetine [Cymbalta] 30 mg PO BID 10/22/17 01/19/18 Gabapentin 1,200 mg PO DAILY 10/22/17 01/19/18 lamoTRIgine [Lamictal] 300 mg PO DAILY 10/22/17 01/19/18 oxyCODONE/ACET 5/325 [Percocet 5 1 - 2 each PO Q6H PRN #14 tablet 12/20/1701/19 mg/325 mg] Ibuprofen [Motrin] 400 mg PO Q6H PRN #30 tablet 01/08/18 01/19/18 Oxycodone HCl/Acetaminophen 2 each PO Q6HR PRN #24 tablet 01/08/18 01/19/18 [Percocet 5-325 mg Tablet] - Allergies Allergies/Adverse Reactions: Allergies Allergy/AdvReac Type Severity Reaction Status Date / Time codeine Allergy Emesis Verified 01/19/18 16:21 Sulfa (Sulfonamide Allergy Emesis Verified 01/19/18 16:21 Antibiotics) - Social History Does the pt smoke?: Yes Smoking Status: Current every day smoker Does the pt drink ETOH?: Yes Does the pt have substance abuse?: No - Immunizations Immunizations are current?: Yes - POLST Patient has POLST: No PD ED PE NORMAL - Vitals Vital signs reviewed: Yes (normal ) - General General: Alert and oriented X 3, No acute distress, Well developed/nourished - HEENT HEENT: Atraumatic, PERRL - Neck Neck: Supple, no meningeal sign - Respiratory Respiratory: No respiratory distress - Derm Derm: Normal color, Warm and dry, No rash - Extremities Extremities: Other (There is tenderness to the right shoulder and ROM is not tested to the shoulder. The sling is removed and there is some swelling at the distal biceps that is tender without overlying erythema and no fluctuance. The forearm is black and tender consistent with resolving hematoma. The wrist has reduced ROM secondary to healing fracture and the elbow is with good ROM without pain to the elbow. There is referred pain to the shoulder. distal n/v intact. ) - Neuro Neuro: No motor deficit, No sensory deficit Eye Opening: Spontaneous Motor: Obeys Commands Verbal: Oriented GCS Score: 15 - Psych Psych: Normal mood, Normal affect Results - Vitals Vitals: Vital Signs - 24 hr 01/19/18 16:16 Temperature 36.3 C L Heart Rate 99 Respiratory 16 Rate Blood Pressure 123/64 O2 Saturation 96 Oxygen O2 Source Room air PD MEDICAL DECISION MAKING - ED course Complexity details: considered differential, d/w patient ED course: 57-year-old female with a proximal humerus fracture that will require some surgery has come in with signs of blood tract in the skin forming hematoma that is resolving and she has some pain associated with this. I do not see any evidence of infection in the soft tissues. There does not appear to be significant orthopedic injury to the distal components of this fracture. Departure - Departure Disposition: 01 Home, Self Care Clinical Impression: Humeral surgical neck fracture Qualifiers: Encounter type: subsequent encounter Fracture type: closed Fracture morphology : 2-part Fracture alignment: displaced Laterality: right Fracture healing: with delayed healing Qualified Code(s): S42.221G - 2-part displaced fracture of surgical neck of right humerus, subsequent encounter for fracture with delayed healing Condition: Stable Instructions: Humerus Fx Follow-Up: Anurag Pryor PA-C [Primary Care Provider] - Lázaro Knowles MD [Provider Admit Priv/Credential] - Discharge Date/Time: 01/19/18 18:01
== END 2018-01-19 18:01 | disposition home or self-care (01) ==
LOC: ED 16:00
DX: S42.221 2-part displaced fracture of surgical neck of right humerus (principal)
CPT/HCPCS: 99282

== ENCOUNTER 2018-01-22 13:19 | Outpatient (CLI) | payer MEDICAID ==
[2018-01-22 13:45] LABS: BASOPHILS # (AUTO) 0.1 10^3/uL (0.0-0.1); BASOPHILS % (AUTO) 1.3 %; EOSINOPHILS # (AUTO) 0.8 10^3/uL (0.0-0.7); EOSINOPHILS % (AUTO) 8.5 %; HGB - HEMOGLOBIN 13.3 g/dL (12.0-16.0); LYMPHOCYTES # (AUTO) 2.7 10^3/uL (1.5-3.5); LYMPHOCYTES % (AUTO) 27.9 %; MEAN CORPUSCULAR HGB CONC 33.9 g/dL (32.0-36.0); MEAN CORPUSCULAR VOLUME 94.2 fL (81.0-99.0); MEAN PLATELET VOLUME 7.1 fL (7.9-10.8); MONOCYTES % (AUTO) 10.3 %; PLT - PLATELET COUNT 490 10^3/uL (130-450); RED BLOOD COUNT 4.17 10^6/uL (4.20-5.40); RED CELL DISTRIBUTION WIDTH 13.6 % (12.0-15.0); WHITE BLOOD COUNT 9.7 x10^3/uL (4.8-10.8)
[2018-01-22 13:54] LABS: CREATININE 0.8 mg/dL (0.4-1.0)
== END 2018-01-22 13:20 | disposition home or self-care (01) ==
LOC: LAB 13:19
PROVIDERS: ATTEND Orthopaedic Surgery
DX: S42.221A 2-part displaced fracture of surgical neck of right humerus, initial encounter for closed fracture (principal)
CPT/HCPCS: 36415; 80048; 85025

== ENCOUNTER 2018-01-26 09:14 | Day surgery (SDC) | payer MEDICAID ==
[2018-01-26] MEDS ORDERED: ceFAZolin 2 GM/50 ML 2 GM/50 ML BAG IV ONE (09:38)
[2018-01-26] MEDS ORDERED: ACETAMINOPHEN 1,000 MG/100 ML 100 ML IV ONE (09:39)
[2018-01-26] MEDS ORDERED: LACTATED RINGERS 1,000 ML IV ONE ×2 (10:19→12:59)
--- NOTE | 2018-01-26 13:44 | XRAY Report ---
TWO VIEW INTRAOPERATIVE RIGHT SHOULDER: 01/26/2018 CLINICAL INDICATION: Proximal humeral fracture. FINDINGS: Intraoperative frontal and lateral views of the right shoulder demonstrate sideplate and screw fixation of the proximal humeral fracture, with improved alignment. 57 seconds of fluoroscopy time was provided to Dr. Knowles; 2 spot images obtained. IMPRESSION: INTRAOPERATIVE IMAGING OF RIGHT SHOULDER FRACTURE FIXATION. TD: 01/26/2018 13:03
[2018-01-26] MEDS ORDERED: oxyCOD/ACETAMIN 5 MG/325 MG TABLET PO ONE (14:49)
[2018-01-26 14:52] VITALS: BP 114/62
--- NOTE | 2018-01-26 19:08 | OPERATIVE REPORT ---
DATE OF SERVICE: 01/26/2018 Physician: Lázaro Knowles MD DATE OF SURGERY: 01/26/2018 PREOPERATIVE DIAGNOSIS: Displaced right humeral fracture involving the humeral neck. POSTOPERATIVE DIAGNOSIS: Displaced right humeral fracture involving the humeral neck. PROCEDURE PERFORMED: Open reduction internal fixation of the right proximal humeral neck fracture. OPERATING SURGEON: Lázaro Knowles M.D. ANESTHESIA: General and interscalene block by Umang. INDICATIONS FOR SURGERY: The patient is a 57-year-old female status post a fall about 2-1/2 weeks ago injuring her right shoulder, causing an oblique humeral neck fracture with varus angulation of the humeral head and irreducibility of the fracture with surgery recommended to restore normal articular alignment. FINDINGS AT SURGERY: The patient's fracture was an unstable oblique fracture. There was soft tissue of the rotator cuff insertion and some of the periosteal and bursal tissues entrapped in the fracture site, which prevented reduction until they were fully extracted. The reduction gain was unstable because of the oblique nature of the fracture. There was minimal comminution of the greater and lesser trochanters, and they were in fairly anatomic position. The fracture was able to be reduced by direct measures in open reduction internal fixation. DESCRIPTION OF OPERATIVE PROCEDURE: The patient was taken to the operating room and was given general anesthetic and interscalene block and was placed beach chair, and sterilely prepped and draped for approach to the right shoulder and for C-arm exposure of the shoulder. The fracture was approached through a deltopectoral incision with mobilization of the deltoid to be retracted laterally with the cephalic vein. The patient's fracture was encountered after replacement of retractors and the soft tissue interposed in the oblique fracture line was extracted. Ultimately, a leverage maneuver was undertaken utilizing a [place] elevator and the head was able to be tipped out of varus into more anatomic alignment and in this position, an ALPS plate by [employer] was applied to the lateral humerus and a K-wire was placed central into the head and neck of the humerus. Subsequent plating proceeded with an oblong compression screw placed distally, followed by K-wires and then locking screws in the head and a locking post distally. Locking screws were applied and the reduction was held and the alignment good, and fixation did not penetrate the head and was in stable position. The alignment gain was near anatomic and the fixation good. The shoulder area was flushed and irrigated and closure was undertaken with interrupted 3-0 Vicryl subcutaneous and Monocryl closure of skin with sterile dressings applied and a sling applied. The patient was taken to the recovery room in stable condition. ESTIMATED BLOOD LOSS FOR THE PROCEDURE: 60 mL. COMPLICATIONS: None. COUNTS: Sponge and needle counts were correct. TD: 01/26/2018 14:04
== END 2018-01-26 09:15 | disposition home or self-care (01) ==
LOC: SDS 09:14
PROVIDERS: ATTEND Orthopaedic Surgery
PROC: 0PSC04Z Reposition Right Humeral Head with Internal Fixation Device, Open Approach (ICD-10-PCS; principal; 2018-01-26 10:30)
DX: S42.291A Other displaced fracture of upper end of right humerus, initial encounter for closed fracture (principal); F17.210 Nicotine dependence, cigarettes, uncomplicated
CPT/HCPCS: 23615; 73030; A9270; C1713; J0131; J0690; J7120

== ENCOUNTER 2018-02-03 08:00 | Outpatient (CLI) | payer MEDICAID ==
[2018-02-03 19:36] LABS: BILIRUBIN,URINE NEGATIVE (NEGATIVE); GLUCOSE, URINE (UA) NEGATIVE (NEGATIVE); KETONES,URINE (UA) NEGATIVE (NEGATIVE); LEUKOCYTE ESTERASE, URINE NEGATIVE (NEGATIVE); NITRITE,URINE NEGATIVE (NEGATIVE); OCCULT BLOOD,URINE NEGATIVE (NEGATIVE); PH,URINE 5.5 PH (5.0-7.5); PROTEIN,URINE NEGATIVE (NEGATIVE); UROBILINOGEN,URINE 0.2 (NORMAL) E.U./dL (NORMAL)
[2018-02-03 19:41] LABS: BACTERIA,URINE None Seen /HPF (None Seen); CLARITY,URINE CLEAR (CLEAR); RBC,URINE None Seen /HPF (0-5); SQUAMOUS EPITHELIAL CELL,UR RARE Squamous (<= Few)
== END 2018-02-03 08:01 | disposition home or self-care (01) ==
LOC: LAB.R 08:00
PROVIDERS: ATTEND Physician Assistant Medical
DX: R30.0 Dysuria (principal)
CPT/HCPCS: 81001; 87086

== ENCOUNTER 2018-02-04 15:07 | Outpatient (CLI) | payer MEDICAID ==
--- NOTE | 2018-02-05 11:34 | DEXA Report ---
DEXA SCAN: 02/04/2018 HISTORY: Multiple fractures. On seizure medicine. TECHNIQUE: Dual energy x-ray absorptiometry (DXA) was performed on a [employer] system. Regions measured are the AP spine, femoral neck, and, if needed, forearm. COMPARISON: None. In accordance with the International Society for Clinical Densitometry (ISCD) guidelines, data from previous exams may be reanalyzed using current recommendations and techniques. This is done to allow a more accurate basis for comparison with the current study. FINDINGS: The data for the lumbar spine is as follows: REGION BMD (g/cm/cm) T-SCORE Z-SCORE L1 0.810 -2.7 -1.3 L2 0.896 -2.5 -1.1 L3 0.921 -2.3 -0.9 L4 0.954 -2.0 -0.7 TOTAL 0.900 -2.3 -0.9 NOTE: All evaluable vertebrae are used for classification. The data for the hip is as follows: REGION BMD (g/cm/cm) T-SCORE Z-SCORE Neck 0.779 -1.9 -0.5 TOTAL 0.701 -2.4 -1.4 NOTE: The femoral neck or total proximal femur, whichever is lowest, is used for classification. IMPRESSION: THE WHO CLASSIFICATION BASED ON THE INTERNATIONAL REFERENCE STANDARD IS OSTEOPENIA. THE FRACTURE RISK IS INCREASED. RECOMMENDATION: Patients with diagnosis of osteoporosis or osteopenia should have regular bone mineral density assessment. For those eligible for Medicare, routine testing is allowed once every 2 years. Testing frequency can be increased for patients who have rapidly progressing disease or for those who are receiving medical therapy to restore bone mass. COMMENT: World Health Organization (WHO) definitions for osteoporosis and osteopenia: NORMAL BMD: T-score at 1.0 or higher, fracture risk is low. OSTEOPENIA BMD: T-score between 1.0 and -2.5, fracture risk is increased. OSTEOPOROSIS BMD: T-score at 2.5 or lower, fracture risk high. National Osteoporosis Foundation recommends: 1. Obtain adequate dietary calcium (at least 1200 mg per day) and vitamin D (400 -800 international units per day). 2. Participate, as appropriate, in regular weightbearing and muscle- strengthening exercise. 3. Avoid tobacco use and reduce alcohol and caffeine intake. 4. For more detailed information see the website at www.NOF.org. MTDD
== END 2018-02-04 15:08 | disposition home or self-care (01) ==
LOC: DI 15:07
PROVIDERS: ATTEND Orthopaedic Surgery
DX: M85.89 Other specified disorders of bone density and structure, multiple sites (principal)
CPT/HCPCS: 77080

== ENCOUNTER 2018-05-29 13:10 | Emergency (ER) | payer MEDICAID ==
--- NOTE | 2018-05-29 14:02 | ED Physician Documentation ---
PD HPI DYSPNEA - Stated complaint Stated Complaint: HIGH BLOOD PRESSURE - Chief complaint Chief Complaint: General - History obtained from History obtained from: Patient - History of Present Illness Timing - onset: How many weeks ago (few) Timing - onset during: Rest (she has noted BP elevated for the past 3 weeks and having some headache, pressure feeling at times with rest. No exertional CP nor dyspnea.), Light activity Timing - duration: Weeks (few) Timing - details: Gradual onset, Still present Inciting event(s): No: URI Improved by: Rest. No: Sitting up Worsened by: Exertion. No: Laying flat Associated symptoms: No: Fever, Cough, Wheezing, Chest pain / discomfort, Bilateral edema Similar symptoms before: No diagnosis Recently seen: Clinic (seen few weeks ago in clinic. Has follow up appt this coming week. Has had BP elevated consistently daily to 150-180 range the past 3 weeks.) Review of Systems Constitutional: reports: Fatigue. denies: Fever, Chills, Myalgias, Weight Loss Nose: reports: Congestion. denies: Rhinorrhea / runny nose Throat: denies: Sore throat Cardiac: denies: Chest pain / pressure, Palpitations Respiratory: denies: Dyspnea, Cough, Wheezing GI: reports: Nausea (at times). denies: Abdominal Pain, Vomiting, Diarrhea Musculoskeletal: denies: Extremity swelling Neurologic: reports: Generalized weakness. 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 - Present Medications Home Medications: Ambulatory Orders Medication Instructions Recorded Confirmed DULoxetine [Cymbalta] 30 mg PO BID 10/22/17 01/26/18 Gabapentin 1,200 mg PO DAILY 10/22/17 01/26/18 lamoTRIgine [Lamictal] 300 mg PO DAILY 10/22/17 01/26/18 Losartan [Cozaar] 50 mg PO DAILY #30 tablet 05/29/18 Ropinirole HCl [Requip] 0.5 mg PO DAILY 05/29/18 05/29/18 - Allergies Allergies/Adverse Reactions: Allergies Allergy/AdvReac Type Severity Reaction Status Date / Time codeine Allergy Emesis Verified 05/29/18 13:21 Sulfa (Sulfonamide Allergy Emesis Verified 05/29/18 13:21 Antibiotics) - Social History Does the pt smoke?: Yes Smoking Status: Current every day smoker Does the pt drink ETOH?: Yes Does the pt have substance abuse?: No - Immunizations Immunizations are current?: Yes - POLST Patient has POLST: No PD ED PE NORMAL - Vitals Vital signs reviewed: Yes - General General: Alert and oriented X 3, No acute distress, Well developed/nourished, Other (thin frame and seems underweight.) - HEENT HEENT: Pharynx benign - Neck Neck: Supple, no meningeal sign, No adenopathy, Thyroid normal - Cardiac Cardiac: RRR, No murmur - Respiratory Respiratory: Clear bilaterally - Abdomen Abdomen: Soft, Non tender - Derm Derm: Normal color, Warm and dry - Extremities Extremities: No deformity, No tenderness to palpate, No edema, No calf tenderness / cord - Neuro Neuro: Alert and oriented X 3, No motor deficit, Normal speech Results - Vitals Vitals: Oxygen O2 Source Room air - Labs Labs: Laboratory Tests 05/29/18 05/29/18 14:42 14:54 WBC 13.6 H RBC 4.50 Hgb 14.7 Hct 42.8 MCV 95.0 MCH 32.6 H MCHC 34.4 RDW 14.5 Plt Count 344 MPV 8.2 Neut # (Auto) 9.8 H Lymph # (Auto) 2.2 Hall # (Auto) 1.1 H Eos # (Auto) 0.4 Baso # (Auto) 0.1 Absolute Nucleated RBC 0.03 Nucleated RBC % 0.2 Manual Slide Review Indicated Platelet Estimate NORMAL (130-450,000) Platelet Morphology NORMAL APPEARANCE RBC Morph Micro Appear NORMAL APPEARANCE Sodium 136 Potassium 3.9 Chloride 99 L Carbon Dioxide 27 Anion Gap 10.0 BUN 9 Creatinine 0.7 Estimated GFR (MDRD) 86 L Glucose 100 Calcium 9.6 Magnesium 2.0 Total Bilirubin 0.7 AST 35 ALT 28 Alkaline Phosphatase 100 Total Protein 6.8 Albumin 3.6 Globulin 3.2 Albumin/Globulin Ratio 1.1 Lipase 38 PD MEDICAL DECISION MAKING - ED course Complexity details: considered differential (lytes and renal function okay. Has elevated white count but not obvious symptoms of infection. ), d/w patient - Sepsis Event Vital Signs: Oxygen O2 Source Room air Departure - Departure Disposition: 01 Home, Self Care Clinical Impression: Elevated blood pressure reading Condition: Stable Record reviewed to determine appropriate education?: Yes Instructions: ED Hypertension New Begin Tx Prescriptions: Losartan [Cozaar] 50 mg PO DAILY #30 tablet Comments: Stay well-hydrated. Low-salt diet. Your basic blood count and electrolytes and kidney function are good here. Since you have had the high blood pressure for several weeks now consistently, we can start a mild blood pressure medicine losartan 50 mg daily. Follow-up with your primary care this coming week on Thursday as planned and have them see how your blood pressure trend is doing. It will likely be a few days for the blood pressure to trend lower. Discharge Date/Time: 05/29/18 15:34
[2018-05-29] MEDS ORDERED: LOSARTAN 50 MG TABLET PO STA (14:21)
[2018-05-29 14:54] LABS: BASOPHILS # (AUTO) 0.1 10^3/uL (0.0-0.1); EOSINOPHILS # (AUTO) 0.4 10^3/uL (0.0-0.7); EOSINOPHILS % (AUTO) 2.7 %; HGB - HEMOGLOBIN 14.7 g/dL (12.0-16.0); LYMPHOCYTES # (AUTO) 2.2 10^3/uL (1.5-3.5); LYMPHOCYTES % (AUTO) 16.4 %; MEAN CORPUSCULAR HEMOGLOBIN 32.6 pg (27.0-31.0); MEAN CORPUSCULAR HGB CONC 34.4 g/dL (32.0-36.0); MEAN PLATELET VOLUME 8.2 fL (7.9-10.8); MONOCYTES # (AUTO) 1.1 10^3/uL (0.0-1.0); MONOCYTES % (AUTO) 7.8 %; NEUTROPHILS # (AUTO) 9.8 10^3/uL (1.5-6.6); NEUTROPHILS % (AUTO) 72.1 %; PLT - PLATELET COUNT 344 10^3/uL (130-450); RED CELL DISTRIBUTION WIDTH 14.5 % (12.0-15.0); WHITE BLOOD COUNT 13.6 x10^3/uL (4.8-10.8)
[2018-05-29 15:11] VITALS: BP 170/94
[2018-05-29 15:11] LABS: PLATELET ESTIMATE, MANUAL NORMAL (130-450,000) (NORMAL); PLATELET MORPHOLOGY NORMAL APPEARANCE (NORMAL); RBC MORPHOLOGY (MULTIPLE) NORMAL APPEARANCE (NORMAL)
[2018-05-29 15:12] LABS: ALBUMIN 3.6 g/dL (3.2-5.5); ALBUMIN/GLOBULIN RATIO 1.1 (1.0-2.2); BILIRUBIN,TOTAL 0.7 mg/dL (0.2-1.0); CALCIUM 9.6 mg/dL (8.5-10.3); CREATININE 0.7 mg/dL (0.4-1.0); TOTAL PROTEIN 6.8 g/dL (6.7-8.2)
== END 2018-05-29 15:34 | disposition home or self-care (01) ==
LOC: ED 13:10
DX: R03.0 Elevated blood-pressure reading, without diagnosis of hypertension (principal); D72.829 Elevated white blood cell count, unspecified; F17.200 Nicotine dependence, unspecified, uncomplicated
CPT/HCPCS: 36415; 80053; 82088; 83690; 83735; 84244; 85025; 99283; A9270

== ENCOUNTER 2018-07-12 14:57 | Emergency (ER) | payer MEDICAID ==
--- NOTE | 2018-07-12 15:25 | ED Physician Documentation ---
PD HPI TRUNK INJURY - Stated complaint Stated Complaint: L RIB PX/FALL - Chief complaint Chief Complaint: General - History obtained from History obtained from: Patient - History of Present Illness Location: Left chest Type of injury: Fall, Blunt / blow (she says she lost balance during night going to bathroom and fell, striking chest/ribs on edge of bathtub. Pain locally left anterolateral chest, worse today with movement and felt sharp/rubbing feeling.) Timing - onset: How many days ago (2) Timing - duration: Days (2) Timing - details: Gradual onset, Still present Quality: Pain, Sharp Improved by: Rest Worsened by: Moving, Palpating, Other (deep breathing) Associated symtptoms: No: Weakness, Numbness Contributing factors: No: Anticoagulated Where injury occured: Home Similar symptoms before: Diagnosis (has had broken rib several months ago from a fall, and was healed from that, was in similar area.) Review of Systems Constitutional: denies: Fever Nose: denies: Rhinorrhea / runny nose, Congestion Throat: denies: Sore throat Cardiac: reports: Chest pain / pressure. 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 - Present Medications Home Medications: Ambulatory Orders Medication Instructions Recorded Confirmed DULoxetine [Cymbalta] 30 mg PO BID 10/22/17 01/26/18 Gabapentin 1,200 mg PO DAILY 10/22/17 01/26/18 lamoTRIgine [Lamictal] 300 mg PO DAILY 10/22/17 01/26/18 Losartan [Cozaar] 50 mg PO DAILY #30 tablet 05/29/18 Ropinirole HCl [Requip] 0.5 mg PO DAILY 05/29/18 05/29/18 Albuterol Sulf [Ventolin Hfa 1 - 2 puffs INH Q4HR PRN #1 inhaler 07/12/18 Inhaler] Benzonatate [Tessalon Perle] 100 - 200 mg PO TID PRN #30 capsule 07/12/18 Dexamethasone [Decadron] 4 mg PO DAILY #5 tablet 07/12/18 Naproxen 375 mg PO BID #20 tablet 07/12/18 oxyCODONE [Roxicodone] 5 mg PO Q4-6H PRN #25 tablet 07/12/18 - Allergies Allergies/Adverse Reactions: Allergies Allergy/AdvReac Type Severity Reaction Status Date / Time codeine Allergy Emesis Verified 07/12/18 15:08 Sulfa (Sulfonamide Allergy Emesis Verified 07/12/18 15:08 Antibiotics) - Social History Does the pt smoke?: Yes Smoking Status: Current every day smoker Does the pt drink ETOH?: Yes Does the pt have substance abuse?: No - Immunizations Immunizations are current?: Yes - POLST Patient has POLST: No PD ED PE NORMAL - Vitals Vital signs reviewed: Yes - General General: Alert and oriented X 3, Well developed/nourished, Other (appears uncomfortable and is guarding left anterior chest. Mild to moderate breathing depth. Pain with moderte to deep breathing. Appears older than her age. ) - HEENT HEENT: Atraumatic, Pharynx benign - Neck Neck: Supple, no meningeal sign, No bony TTP - Cardiac Cardiac: RRR, No murmur - Respiratory Respiratory: No respiratory distress, Clear bilaterally, Other (left anterolateral chest about ribs 6-9 area with tenderness. Thin trunk without much muscle mass. ) - Abdomen Abdomen: Soft, Non tender - Derm Derm: Normal color, Warm and dry - Extremities Extremities: No tenderness to palpate, Normal ROM s pain - Neuro Neuro: Alert and oriented X 3, No motor deficit, Normal speech Results - Vitals Vitals: Vital Signs - 24 hr 07/12/18 07/12/18 15:02 16:39 Temperature 36.7 C 37.1 C Heart Rate 80 82 Respiratory 18 18 Rate Blood Pressure 164/91 H 172/97 H O2 Saturation 99 98 Oxygen O2 Source Room air - Rads (name of study) chest with ribs Radiology: Prelim report reviewed (fracture left lateral 6th/7th ribs. ), EMP read contemporaneously (fracture 6/7 ribs. Possible 9th, though that looks healed and likely was her recent prior fracture.) PD MEDICAL DECISION MAKING - ED course Complexity details: considered differential (she denies syncope. States she has had balance problems when gets up at times. ), d/w patient Departure - Departure Disposition: 01 Home, Self Care Clinical Impression: Accidental fall Qualifiers: Encounter type: initial encounter Qualified Code(s): W19.XXXA - Unspecified fall, initial encounter Rib fractures Qualifiers: Encounter type: initial encounter Rib fracture type: multiple ribs Fracture type: closed Laterality: left Qualified Code(s): S22.42XA - Multiple fractures of ribs, left side, initial encounter for closed fracture Condition: Stable Record reviewed to determine appropriate education?: Yes Instructions: ED Fx Rib Prescriptions: Albuterol Sulf [Ventolin Hfa Inhaler] 1 - 2 puffs INH Q4HR PRN #1 inhaler PRN Reason: Shortness Of Air/Wheezing Benzonatate [Tessalon Perle] 100 - 200 mg PO TID PRN #30 capsule PRN Reason: Cough Dexamethasone [Decadron] 4 mg PO DAILY #5 tablet Naproxen 375 mg PO BID #20 tablet oxyCODONE [Roxicodone] 5 mg PO Q4-6H PRN #25 tablet PRN Reason: Pain Comments: Activity as able. Drink lots of fluids. Naproxen anti-inflammatory twice daily for the next 7-10 days. Take it with food. Tylenol or oxycodone if needed for pain of the rib fractures. Take a stool softener as well so you do not get constipated. The cough you have had will not help with the rib fractures so we will treat that as well with Tessalon as a cough suppressant and use an albuterol inhaler 2-3 puffs 4 times a day for the next 10 days to improve breathing and decreased cough. Decadron steroid to help with bronchial inflammation. Follow-up with your primary care in the next 3-5 days, call for an appointment. Discharge Date/Time: 07/12/18 16:44
[2018-07-12] MEDS ORDERED: ACETAMINOPHEN 325 MG TABLET PO STA (15:34)
[2018-07-12] MEDS ORDERED: DEXAMETHASONE 10 MG/ML VIAL PO STA (15:34)
[2018-07-12] MEDS ORDERED: BENZONATATE 100 MG CAPSULE PO STA (15:34)
[2018-07-12] MEDS ORDERED: NAPROXEN 250 MG TABLET PO STA (15:34)
--- NOTE | 2018-07-12 16:04 | XRAY Report ---
Reason: GLF, left rib pain Procedure Date: 07/12/2018 Accession Number: [id number] / [id number] Procedure: XR - Ribs w/PA Chest LT CPT Code: FULL RESULT: EXAM: LEFT RIB RADIOGRAPHY EXAM DATE: 07/12/2018 03:43 PM. CLINICAL HISTORY: Ground-level fall, left rib pain. COMPARISON: SHOULDER 3 VIEW RT 06/07/2018 2:39 PM. TECHNIQUE: 1 view of the chest and 2 views of the ribs. FINDINGS: Bones: There are nondisplaced fractures of the anterolateral sixth and seventh ribs, and the posterior ninth rib. A presumed international tax manager fracture of the eighth rib is not definitely identified. Lungs: Focal subsegmental opacity is seen in the left lung base most likely atelectasis relative to splinting. Small contusion is also possible. No significant effusion and no extra-ventilatory air. Right lung is clear. Mediastinum: Heart and mediastinal contours are unremarkable. Other: None. IMPRESSION: Left rib fractures as described. Left basilar subsegmental opacity favor atelectasis. RADIA
[2018-07-12 16:43] VITALS: BP 172/97
== END 2018-07-12 16:44 | disposition home or self-care (01) ==
LOC: ED 14:57
DX: S22.42XA Multiple fractures of ribs, left side, initial encounter for closed fracture (principal); W01.190A Fall on same level from slipping, tripping and stumbling with subsequent striking against furniture, initial encounter; Y92.002 Bathroom of unspecified non-institutional (private) residence as the place of occurrence of the external cause; F17.200 Nicotine dependence, unspecified, uncomplicated
CPT/HCPCS: 71101; 99283; 99284; A9270

== ENCOUNTER 2018-07-25 13:23 | Emergency (ER) | payer MEDICAID ==
[2018-07-25 13:30] VITALS: BP 144/74
--- NOTE | 2018-07-25 13:55 | XRAY Report ---
Reason: fall Procedure Date: 07/25/2018 Accession Number: [id number] / [id number] Procedure: XR - Foot 3 View LT CPT Code: FULL RESULT: EXAM: LEFT FOOT RADIOGRAPHY EXAM DATE: 07/25/2018 01:44 PM. CLINICAL HISTORY: Fall. Left lateral foot pain. COMPARISON: None. TECHNIQUE: 3 views. FINDINGS: Bones: Oblique displaced mid distal shaft comminuted left fifth metatarsal fracture with distraction of the fracture fragments in its midportion up to 4 mm. Small intervening segment of fragment noted. No significant angulation. Healing left third metatarsal fracture. Plantar calcaneal spur. Joints: No dislocation. Degenerative changes of the left first MTP joint and left midfoot. Soft Tissues: Soft tissue swelling. IMPRESSION: 1. Left fifth metatarsal fracture. RADIA
--- NOTE | 2018-07-25 14:13 | ED Physician Documentation ---
PD HPI LOWER EXT INJURY - Stated complaint Stated Complaint: FALL/ LT FOOT/RT ELBOW - Chief complaint Chief Complaint: Trauma Ext - History obtained from History obtained from: Patient - History of Present Illness PD HPI LOW EXT INJURY LOCATION: Other (Frequent falls over the last few months. [place] dizzy last night at 7pm, no syncope, but fell. This was at home while trying to grab something. Cut on right elbow and hurt right foot. Tetanus is up-to-date. She has frequent falls, this is been worked up by her physician. She carries a diagnosis of positional vertigo which she says is the cause based on her understanding. 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 - Present Medications Home Medications: Ambulatory Orders Medication Instructions Recorded Confirmed DULoxetine [Cymbalta] 90 mg PO BID 10/22/17 01/26/18 Gabapentin 1,200 mg PO DAILY 10/22/17 01/26/18 lamoTRIgine [Lamictal] 300 mg PO DAILY 10/22/17 01/26/18 Losartan [Cozaar] 50 mg PO DAILY #30 tablet 05/29/18 Ropinirole HCl [Requip] 0.5 mg PO DAILY 05/29/18 05/29/18 Albuterol Sulf [Ventolin Hfa 1 - 2 puffs INH Q4HR PRN #1 inhaler 07/12/18 Inhaler] Doxycycline Hyclate 100 mg PO BID #14 capsule 07/25/18 Hydrocodone/Acetaminophen 1 - 2 each PO Q6H PRN #10 tablet 07/25/18 [Hydrocodon-Acetaminophen 5-325] - Allergies Allergies/Adverse Reactions: Allergies Allergy/AdvReac Type Severity Reaction Status Date / Time codeine Allergy Emesis Verified 07/25/18 13:30 Sulfa (Sulfonamide Allergy Emesis Verified 07/25/18 13:30 Antibiotics) - Social History Does the pt smoke?: Yes Smoking Status: Current every day smoker Does the pt drink ETOH?: Yes Does the pt have substance abuse?: No - Immunizations Immunizations are current?: Yes - POLST Patient has POLST: No PD ED PE NORMAL - Vitals Vital signs reviewed: Yes - General General: Alert and oriented X 3, No acute distress - HEENT HEENT: PERRL, EOMI - Neck Neck: Supple, no meningeal sign, No bony TTP - Extremities Extremities: Other (There is a 3 cm curvilinear laceration just distal to the olecranon posteriorly of the right elbow with intact range of motion but underlying tenderness.) - Neuro Neuro: Alert and oriented X 3, Normal speech - Psych Psych: Normal mood, Normal affect Results - Vitals Vitals: Vital Signs - 24 hr 07/25/18 13:28 Temperature 36 C L Heart Rate 107 H Respiratory 16 Rate Blood Pressure 144/74 H O2 Saturation 99 Oxygen O2 Source Room air - Rads (name of study) L foot XR Radiology: EMP read contemporaneously (Acute left fifth metatarsal midshaft fracture in an older left third metatarsal fracture) L elbow XR Radiology: EMP read contemporaneously (Poss abn radial head on 1 view only, no joint effusion) Procedures - Laceration (location) R elbow Length in cm: 3 Wound type: Curved, Into muscle Neurovascular status: Sensory intact, Motor intact Anesthesia: Lidocaine 1%, With bicarb Wound Preparation: Hibiclens, Irrigated copiously NS Skin layer closure: Nylon, Interrupted, Size #-0 - enter number (4-0), Sutures - enter # (7) Other: Tetanus UTD Complexity: Simple PD MEDICAL DECISION MAKING - ED course ED course: 58-year-old woman who has frequent falls and fall last night. She has a lac eration on the right elbow without evidence of open fracture. Given that it was into the bursa she was placed on antibiotics. She also has an oblique midshaft fifth metatarsal fracture. She has a bad shoulder at baseline as well as vertigo. And given the elbow injury I did not think she would do well up on crutches. Case discussed by phone with Dr. Jesus who agrees that she can probably just go into a walking boot and bear weight on it pending follow-up. Departure - Departure Disposition: 01 Home, Self Care Clinical Impression: Fracture of fifth metatarsal bone Qualifiers: Encounter type: initial encounter Fracture type: closed Fracture alignment: nondisplaced Laterality: left Qualified Code(s): S92.355A - Nondisplaced fracture of fifth metatarsal bone, left foot, initial encounter for closed fracture Laceration of right elbow Qualifiers: Encounter type: initial encounter Qualified Code(s): S51.011A - Laceration without foreign body of right elbow, initial encounter Condition: Good Record reviewed to determine appropriate education?: Yes Instructions: ED Fx Foot, ED Laceration All Follow-Up: [facility] [Provider Group] - Within 1 week Prescriptions: Doxycycline Hyclate 100 mg PO BID #14 capsule Hydrocodone/Acetaminophen [Hydrocodon-Acetaminophen 5-325] 1 - 2 each PO Q6H PRN #10 tablet PRN Reason: pain Comments: Come back for any signs of infection which would include: Redness, swelling, drainage, increased pain, or fevers. Follow-up with your physician in 14 days for suture removal.
[2018-07-25] MEDS ORDERED: BUFFERED LIDOCAINE 10 ML SYRINGE SUBQ STA (14:22)
--- NOTE | 2018-07-25 14:46 | XRAY Report ---
Reason: elbow injury Procedure Date: 07/25/2018 Accession Number: [id number] / [id number] Procedure: XR - Elbow 3 View RT CPT Code: FULL RESULT: EXAM: RIGHT ELBOW RADIOGRAPHY EXAM DATE: 07/25/2018 02:27 PM. CLINICAL HISTORY: Elbow injury. COMPARISON: ELBOW 3 VIEW RT 10/22/2017 7:47 PM. TECHNIQUE: 3 views. FINDINGS: Bones: No displaced fractures. Minimal contour deformity of the radial head on the lateral view may be developmental. Nondisplaced fracture is not excluded however. Joints: Unremarkable. No convincing elbow joint effusion. Soft Tissues: Unremarkable. IMPRESSION: 1. No displaced fractures. Minimal contour deformity of the radial head on a single view may be developmental; nondisplaced fracture is not excluded however. No convincing elbow joint effusion. RADIA
[2018-07-25] MEDS ORDERED: DOXYCYCLINE 100 MG TABLET PO STA (15:14)
== END 2018-07-25 15:36 | disposition home or self-care (01) ==
LOC: ED 13:23
DX: S92.355A Nondisplaced fracture of fifth metatarsal bone, left foot, initial encounter for closed fracture (principal); S51.011A Laceration without foreign body of right elbow, initial encounter; W11.XXXA Fall on and from ladder, initial encounter; Z91.81 History of falling; Y93.89 Activity, other specified; Y92.009 Unspecified place in unspecified non-institutional (private) residence as the place of occurrence of the external cause; R42 Dizziness and giddiness; F17.200 Nicotine dependence, unspecified, uncomplicated
CPT/HCPCS: 12002; 73080; 73630; 99283; A9270

== ENCOUNTER 2018-08-01 12:43 | Emergency (ER) | payer MEDICAID ==
--- NOTE | 2018-08-01 13:13 | ED Physician Documentation ---
PD HPI TRUNK INJURY - Stated complaint Stated Complaint: GLF/R SIDE PX - Chief complaint Chief Complaint: Ext Problem - History obtained from History obtained from: Patient - History of Present Illness Location: Anterior chest, Right chest Type of injury: Fall (says got abruptly dizzy last night and fell to right side. Pain at ribs.) Timing - onset: Last night Timing - details: Abrupt onset Quality: Pain, Sharp Improved by: Rest Worsened by: Moving, Palpating, Other (breathing) Associated symtptoms: No: Weakness, Numbness, Syncope Where injury occured: Home Similar symptoms before: Diagnosis (has had abrupt vertigo often with falls and several rib fractures. Says has been to Neurology and Cardiology without obvius answers. Dx positional vertigo) Recently seen: Emergency Dept Review of Systems Constitutional: denies: Fever, Chills Nose: denies: Rhinorrhea / runny nose, Congestion Throat: denies: Sore throat Cardiac: reports: Chest pain / pressure Respiratory: denies: Cough GI: denies: Abdominal Pain, Nausea, Vomiting Neurologic: denies: Focal weakness, Numbness, Altered mental status, Headache, Head injury PD PAST MEDICAL HISTORY - Past Medical History Cardiovascular: None Respiratory: Emphysema Neuro: None Endocrine/Autoimmune: None GI: None ORTHO ASSISTANT: None : None HEENT: Chronic vision loss Psych: Depression, Anxiety, Other Musculoskeletal: None Derm: None - Past Surgical History Past Surgical History: Yes General: Hiatal hernia repair Ortho: Other /ORTHO ASSISTANT: 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 - Present Medications Home Medications: Ambulatory Orders Medication Instructions Recorded Confirmed DULoxetine [Cymbalta] 90 mg PO BID 10/22/17 01/26/18 Gabapentin 1,200 mg PO DAILY 10/22/17 01/26/18 lamoTRIgine [Lamictal] 300 mg PO DAILY 10/22/17 01/26/18 Losartan [Cozaar] 50 mg PO DAILY #30 tablet 05/29/18 Ropinirole HCl [Requip] 0.5 mg PO DAILY 05/29/18 05/29/18 Albuterol Sulf [Ventolin Hfa 1 - 2 puffs INH Q4HR PRN #1 inhaler 07/12/18 Inhaler] Doxycycline Hyclate 100 mg PO BID #14 capsule 07/25/18 Hydrocodone/Acetaminophen 1 - 2 each PO Q6H PRN #10 tablet 07/25/18 [Hydrocodon-Acetaminophen 5-325] Naproxen 375 mg PO BID #20 tablet 08/01/18 Oxycodone HCl/Acetaminophen 1 each PO Q6H PRN #20 tablet 08/01/18 [Percocet 10-325 mg Tablet] - Allergies Allergies/Adverse Reactions: Allergies Allergy/AdvReac Type Severity Reaction Status Date / Time codeine Allergy Emesis Verified 08/01/18 12:54 Sulfa (Sulfonamide Allergy Emesis Verified 08/01/18 12:54 Antibiotics) - Social History Does the pt smoke?: Yes Smoking Status: Current every day smoker Does the pt drink ETOH?: Yes Does the pt have substance abuse?: No - Immunizations Immunizations are current?: Yes - POLST Patient has POLST: No PD ED PE NORMAL - Vitals Vital signs reviewed: Yes - General General: Alert and oriented X 3, Well developed/nourished, Other (seems in pain and splinting right chestwall) - HEENT HEENT: Atraumatic - Neck Neck: Supple, no meningeal sign, No adenopathy - Cardiac Cardiac: RRR, No murmur - Respiratory Respiratory: Clear bilaterally, Other (tender right anterolateral chest without defomity nor crepitance. ) - Abdomen Abdomen: Soft, Non tender - Derm Derm: Normal color, Warm and dry - Extremities Extremities: No tenderness to palpate, Normal ROM s pain - Neuro Neuro: Alert and oriented X 3, No motor deficit, Normal speech Results - Vitals Vitals: Oxygen O2 Source Room air - Rads (name of study) chest CT Radiology: Prelim report reviewed (prior healed/healing fractures; no new fractures. no lung injury.) PD MEDICAL DECISION MAKING - ED course Complexity details: considered differential (many recent falls from positional vertigo. Has seen Neuro and Cardiology without other Dx. ), d/w patient Departure - Departure Disposition: 01 Home, Self Care Clinical Impression: Chest wall contusion Qualifiers: Encounter type: initial encounter Laterality: right Qualified Code(s): S20.211A - Contusion of right front wall of thorax, initial encounter Fall from slip, trip, or stumble Qualifiers: Encounter type: initial encounter Qualified Code(s): W01.0XXA - Fall on same level from slipping, tripping and stumbling without subsequent striking against object, initial encounter Condition: Stable Record reviewed to determine appropriate education?: Yes Instructions: ED Contusion Chest Wall Prescriptions: Naproxen 375 mg PO BID #20 tablet Oxycodone HCl/Acetaminophen [Percocet 10-325 mg Tablet] 1 each PO Q6H PRN #20 tablet PRN Reason: Pain Comments: The CT scan did not show any new fractures nor injury to the lung. Old healing fractures are seen on the left. No new fractures on the right. He can still be hurting there though and so take some oxycodone every 6-8 hours if needed for pain. Consider some anti-inflammatories such as ibuprofen or naproxen to help with inflammation in the area. Activity as able. Discharge Date/Time: 08/01/18 15:29
[2018-08-01] MEDS ORDERED: oxyCODONE 5 MG TABLET PO STA (13:25)
--- NOTE | 2018-08-01 14:39 | CT Report ---
Reason: fall with right rib injuries last night; lower lat Procedure Date: 08/01/2018 Accession Number: [id number] / [id number] Procedure: CT - Chest W/O CPT Code: FULL RESULT: EXAM: CT CHEST EXAM DATE: 08/01/2018 01:54 PM. CLINICAL HISTORY: Fall with right rib injuries last night; lower lateral. COMPARISONS: 07/12/2018. TECHNIQUE: Routine helical CT imaging was performed through the chest. IV contrast: None. Reconstructions: Coronal and sagittal. In accordance with CT protocol optimization, one or more of the following dose reduction techniques were utilized for this exam: automated exposure control, adjustment of mA and/or KV based on patient size, or use of iterative reconstructive technique. FINDINGS: Lungs/Pleura: Mild biapical scarring. There is a calcified left lower lobe granuloma. No airspace consolidation. No pleural effusion or pneumothorax. Mediastinum: The heart is normal in size. Mild coronary calcifications. No aortic aneurysm. No lymphadenopathy. Bones: No acute fracture. There are healing fractures of the left anterolateral third through seventh ribs. Old right anterior sixth and seventh rib fractures. Right proximal humeral fixation hardware. Visualized Abdomen: Unremarkable. Other: None. IMPRESSION: No acute abnormality. Healing left third through seventh rib fractures. RADIA
[2018-08-01 15:26] VITALS: BP 112/80
== END 2018-08-01 15:29 | disposition home or self-care (01) ==
LOC: ED 12:43
DX: S20.211A Contusion of right front wall of thorax, initial encounter (principal); W01.0XXA Fall on same level from slipping, tripping and stumbling without subsequent striking against object, initial encounter; F17.200 Nicotine dependence, unspecified, uncomplicated
CPT/HCPCS: 71250; 99283

== ENCOUNTER 2018-08-30 08:00 | Outpatient (CLI) | payer MEDICAID | END 2018-08-30 08:01 | disposition home or self-care (01) | LOC: LAB.R 08:00 | PROVIDERS: ATTEND Orthopaedic Surgery | DX: S59.801D Other specified injuries of right elbow, subsequent encounter (principal) | CPT/HCPCS: 87070; 87181; 87205 ==

== ENCOUNTER 2018-10-22 21:35 | Outpatient (CLI) | payer MEDICAID | END 2018-10-22 21:36 | disposition critical access hospital (66) | LOC: EMS 21:35 | PROVIDERS: ATTEND Surgery | DX: R53.1 Weakness (principal) ==

== ENCOUNTER 2018-10-22 22:06 | Emergency (ER) | payer MEDICAID ==
--- NOTE | 2018-10-22 22:27 | ED Physician Documentation ---
PD HPI SYNCOPE - Stated complaint Stated Complaint: WEAKNESS, ETOH - Chief complaint Chief Complaint: MHE - History obtained from History obtained from: Patient, EMS - History of Present Illness Witnessed: Unwitnessed Timing - onset: Today Duration: Seconds Preceding symptoms: Vision changes, Light headed, Generalized weakness Contributing factors: Decreased PO intake, Other (ETHO) Injury occurred: Other (abrasion to the right elbow.) Similar symptoms before: Diagnosis (near syncope with BPV) Recently seen: Not recently seen - Additional information Additional information: 58-year-old female with a history of alcohol abuse and benign positional vertigo has had episodes of near syncope where her legs become rubbery and she collapses to the ground to prevent injury. She had an episode of this tonight. She also indicates that she has felt like hurting herself. She has an abrasion to her right elbow. Review of Systems Constitutional: reports: Fatigue. denies: Fever, Chills Eyes: denies: Decreased vision Ears: denies: Ear pain Nose: reports: Rhinorrhea / runny nose, Congestion Throat: denies: Sore throat Cardiac: denies: Chest pain / pressure, Palpitations Respiratory: reports: Cough. denies: Dyspnea GI: denies: Abdominal Pain, Abdominal Swelling, Nausea, Vomiting, Constipation, Diarrhea : denies: Dysuria, Frequency Skin: denies: Rash Musculoskeletal: denies: Neck pain, Back pain, Extremity pain Neurologic: reports: Near syncope. 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 : None HEENT: Chronic vision loss Psych: Depression, Anxiety, Other Musculoskeletal: None Derm: None - Past Surgical History Past Surgical History: Yes General: Hiatal hernia repair Ortho: Other /MORNING BABYSITTER: 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 - Present Medications Home Medications: Ambulatory Orders Medication Instructions Recorded Confirmed RX: DULoxetine [Cymbalta] 90 mg PO BID 10/22/17 01/26/18 RX: Gabapentin 1,200 mg PO DAILY 10/22/17 01/26/18 lamoTRIgine [Lamictal] 300 mg PO DAILY 10/22/17 01/26/18 RX: Losartan [Cozaar] 50 mg PO DAILY #30 tablet 05/29/18 Ropinirole HCl [Requip] 0.5 mg PO DAILY 05/29/18 05/29/18 RX: Albuterol Sulf [Ventolin Hfa 1 - 2 puffs INH Q4HR PRN #1 inhaler 07/12/18 Inhaler] Hydrocodone/Acetaminophen 1 - 2 each PO Q6H PRN #10 tablet 07/25/18 [Hydrocodon-Acetaminophen 5-325] RX: Doxycycline Hyclate 100 mg PO BID #14 capsule 07/25/18 Oxycodone HCl/Acetaminophen 1 each PO Q6H PRN #20 tablet 08/01/18 [Percocet 10-325 mg Tablet] RX: Naproxen 375 mg PO BID #20 tablet 08/01/18 - Allergies Allergies/Adverse Reactions: Allergies Allergy/AdvReac Type Severity Reaction Status Date / Time codeine Allergy Emesis Verified 08/01/18 12:54 Sulfa (Sulfonamide Allergy Emesis Verified 08/01/18 12:54 Antibiotics) - Social History Does the pt smoke?: Yes Smoking Status: Current every day smoker Does the pt drink ETOH?: Yes Does the pt have substance abuse?: No - Immunizations Immunizations are current?: Yes - POLST Patient has POLST: No PD ED PE NORMAL - Vitals Vital signs reviewed: Yes (hypotensive) - General General: Alert and oriented X 3, No acute distress, Well developed/nourished - HEENT HEENT: Atraumatic, PERRL, EOMI, Ears normal, Other (dry mucous membranes ) - Neck Neck: Supple, no meningeal sign, No bony TTP - Cardiac Cardiac: RRR, No murmur - Respiratory Respiratory: No respiratory distress, Clear bilaterally - Abdomen Abdomen: Soft, Non tender - Back Back: No CVA TTP, No spinal TTP - Derm Derm: Normal color, Warm and dry, No rash - Extremities Extremities: No deformity, Other (There is an abrasion to the lateral aspect of the right elbow without significant swelling, no deformity and full ROM of the joint. The distal n/v is intact. ) - Neuro Neuro: Alert and oriented X 3, telecom coordinator 2-12 intact, No motor deficit, No sensory deficit, Normal speech Eye Opening: Spontaneous Motor: Obeys Commands Verbal: Oriented GCS Score: 15 - Psych Psych: Normal mood, Normal affect Results - Vitals Vitals: Vital Signs - 24 hr 10/22/18 10/22/18 10/22/18 22:12 22:17 23:06 Temperature 37 C Heart Rate 95 93 82 Respiratory 16 16 14 Rate Blood Pressure 93/53 L 93/53 L 88/57 L O2 Saturation 97 96 96 10/22/18 23:38 Temperature Heart Rate 108 H Respiratory 18 Rate Blood Pressure 96/59 L O2 Saturation 100 Oxygen O2 Source Room air - EKG (time done) 2250 Rate: Rate (enter#) (83) Rhythm: NSR Intervals: Prolonged QT (borderline) Ischemia: Normal ST segments Compare to prior EKG: Changed from prior EKG (SPT 12-20-17 the QT interval has increased. ) Computer interpretation: Agree with computer - Labs Labs: Laboratory Tests 10/22/18 10/22/18 10/22/18 22:49 22:49 22:49 WBC 7.8 RBC 4.19 L Hgb 14.2 Hct 41.2 MCV 98.3 MCH 34.0 H MCHC 34.5 RDW 13.3 Plt Count 274 MPV 7.8 L Neut # (Auto) 4.1 Lymph # (Auto) 2.5 [place] # (Auto) 0.6 Eos # (Auto) 0.5 Baso # (Auto) 0.1 Absolute Nucleated RBC 0.00 Nucleated RBC % 0.1 Sodium 141 Potassium 3.3 L Chloride 104 Carbon Dioxide 27 Anion Gap 10.0 BUN 7 Creatinine 0.6 Estimated GFR (MDRD) 103 Glucose 91 Calcium 8.1 L Total Bilirubin 0.4 AST 23 ALT 21 Alkaline Phosphatase 80 Troponin I < 0.04 Total Protein 6.3 L Albumin 3.5 Globulin 2.8 Albumin/Globulin Ratio 1.3 Lipase 36 Urine Color Urine Clarity Urine pH Ur Specific [place] Urine Protein Urine Glucose (UA) Urine Ketones Urine Occult Blood Urine Nitrite Urine Bilirubin Urine Urobilinogen Ur Leukocyte Esterase Ur Microscopic Review Urine Culture Comments Urine Opiates Screen Ur Oxycodone Screen Urine Methadone Screen Ur Propoxyphene Screen Ur Barbiturates Screen Ur Tricyclics Screen Ur Phencyclidine Scrn Ur Amphetamine Screen U Methamphetamines Scrn U Benzodiazepines Scrn Urine Cocaine Screen U Cannabinoids Screen Ethyl Alcohol 259.7 10/22/18 23:19 WBC RBC Hgb Hct MCV MCH MCHC RDW Plt Count MPV Neut # (Auto) Lymph # (Auto) [place] # (Auto) Eos # (Auto) Baso # (Auto) Absolute Nucleated RBC Nucleated RBC % Sodium Potassium Chloride Carbon Dioxide Anion Gap BUN Creatinine Estimated GFR (MDRD) Glucose Calcium Total Bilirubin AST ALT Alkaline Phosphatase Troponin I Total Protein Albumin Globulin Albumin/Globulin Ratio Lipase Urine Color YELLOW Urine Clarity CLEAR Urine pH 7.0 Ur Specific [place] <=1.005 Urine Protein NEGATIVE Urine Glucose (UA) NEGATIVE Urine Ketones NEGATIVE Urine Occult Blood NEGATIVE Urine Nitrite NEGATIVE Urine Bilirubin NEGATIVE Urine Urobilinogen 0.2 (NORMAL) Ur Leukocyte Esterase NEGATIVE Ur Microscopic Review NOT INDICATED Urine Culture Comments NOT INDICATED Urine Opiates Screen NEGATIVE Ur Oxycodone Screen NEGATIVE Urine Methadone Screen NEGATIVE Ur Propoxyphene Screen NEGATIVE Ur Barbiturates Screen NEGATIVE Ur Tricyclics Screen NEGATIVE Ur Phencyclidine Scrn NEGATIVE Ur Amphetamine Screen NEGATIVE U Methamphetamines Scrn NEGATIVE U Benzodiazepines Scrn NEGATIVE Urine Cocaine Screen NEGATIVE U Cannabinoids Screen NEGATIVE Ethyl Alcohol Procedures - IVC sono (time) 1020 Bedside IVC sono: IVC measures (cm) (0.79), IVC collapsed c insp (cm) (complete), Dehydration (est 2 liter deficit) PD MEDICAL DECISION MAKING - ED course Complexity details: reviewed old records, reviewed results, re-evaluated patient, considered differential, d/w patient ED course: 58-year-old female with a history of benign positional vertigo has had episodes of near syncope and today she had an episode of near syncope and fell to ground abrading her right elbow. She arrives to the emergency department hypotensive with a blood pressure of 93 systolic and she is found to be dehydrated on interrogation of the inferior vena cava. IV banana bag is begun, and a work up for near syncope is started. The patient receives her IV banana bag and elopes from the ED. Ultimately she was intoxicated with BA 259 and dehydrated and this likely is the cause of her presenting symptoms. Departure - Departure Disposition: ED [place] Clinical Impression: Dehydration Alcoholic intoxication Qualifiers: Complication of substance-induced condition: with unspecified complication Qualified Code(s): F10.929 - Alcohol use, unspecified with intoxication, unspecified Discharge Date/Time: 10/23/18 00:41
[2018-10-22] MEDS ORDERED: FOLIC ACID INJ 1 MG, THIAMINE INJ 100 MG, MAGNESIUM SULFATE 2 GM, MULTIVITAMIN 10 ML in... IV STA ×5 (22:32)
[2018-10-22] MEDS ORDERED: THIAMINE 100 MG/1 ML 2 ML MDV ONE (22:50)
[2018-10-22 22:55] LABS: BASOPHILS # (AUTO) 0.1 10^3/uL (0.0-0.1); BASOPHILS % (AUTO) 1.1 %; EOSINOPHILS # (AUTO) 0.5 10^3/uL (0.0-0.7); HGB - HEMOGLOBIN 14.2 g/dL (12.0-16.0); LYMPHOCYTES # (AUTO) 2.5 10^3/uL (1.5-3.5); LYMPHOCYTES % (AUTO) 32.2 %; MEAN CORPUSCULAR HGB CONC 34.5 g/dL (32.0-36.0); MEAN CORPUSCULAR VOLUME 98.3 fL (81.0-99.0); MEAN PLATELET VOLUME 7.8 fL (7.9-10.8); MONOCYTES # (AUTO) 0.6 10^3/uL (0.0-1.0); MONOCYTES % (AUTO) 7.8 %; NEUTROPHILS # (AUTO) 4.1 10^3/uL (1.5-6.6); NEUTROPHILS % (AUTO) 51.9 %; PLT - PLATELET COUNT 274 10^3/uL (130-450); RED BLOOD COUNT 4.19 10^6/uL (4.20-5.40); RED CELL DISTRIBUTION WIDTH 13.3 % (12.0-15.0); WHITE BLOOD COUNT 7.8 x10^3/uL (4.8-10.8)
--- NOTE | 2018-10-22 23:03 | XRAY Report ---
Reason: cough near syncope Procedure Date: 10/22/2018 Accession Number: [id number] / [id number] Procedure: XR - Chest 1 View X-Ray CPT Code: 43421 FULL RESULT: EXAM: CHEST RADIOGRAPHY EXAM DATE: 10/22/2018 10:49 PM. CLINICAL HISTORY: Cough near syncope. COMPARISON: RIBS W/PA CHEST LT 07/12/2018 3:35 PM. TECHNIQUE: 1 view. FINDINGS: Lungs/Pleura: No focal opacities evident. No pleural effusion. No pneumothorax. Mediastinum: Within exam limitations, the cardiomediastinal contour is normal. Other: There are healing left lateral sixth and seventh rib fractures. IMPRESSION: 1. No acute infiltrates. RADIA
[2018-10-22 23:09] LABS: ALBUMIN 3.5 g/dL (3.2-5.5); ALBUMIN/GLOBULIN RATIO 1.3 (1.0-2.2); BILIRUBIN,TOTAL 0.4 mg/dL (0.2-1.0); CALCIUM 8.1 mg/dL (8.5-10.3); CREATININE 0.6 mg/dL (0.4-1.0); TOTAL PROTEIN 6.3 g/dL (6.7-8.2)
[2018-10-22 23:29] LABS: MUDS CUTOFF CONCENTRATIONS CUTOFF CONC BELOW:
[2018-10-22 23:31] LABS: BILIRUBIN,URINE NEGATIVE (NEGATIVE); GLUCOSE, URINE (UA) NEGATIVE (NEGATIVE); KETONES,URINE (UA) NEGATIVE (NEGATIVE); LEUKOCYTE ESTERASE, URINE NEGATIVE (NEGATIVE); NITRITE,URINE NEGATIVE (NEGATIVE); OCCULT BLOOD,URINE NEGATIVE (NEGATIVE); PROTEIN,URINE NEGATIVE (NEGATIVE); UROBILINOGEN,URINE 0.2 (NORMAL) E.U./dL (NORMAL)
[2018-10-22] MEDS ORDERED: POTASSIUM BICARB 25 MEQ TABLET PO STA (23:31)
[2018-10-22 23:36] LABS: CLARITY,URINE CLEAR (CLEAR)
[2018-10-22 23:40] VITALS: BP 96/59
[2018-10-22 23:48] LABS: AMPHETAMINE SCREEN,URINE NEGATIVE (NEGATIVE); BENZODIAZEPINES SCREEN, URINE NEGATIVE (NEGATIVE); COCAINE SCREEN URINE NEGATIVE (NEGATIVE); METHADONE SCREEN, URINE NEGATIVE (NEGATIVE); METHAMPHETAMINES SCREEN, URINE NEGATIVE (NEGATIVE); OPIATE SCREEN, URINE NEGATIVE (NEGATIVE); OXYCODONE SCREEN, URINE NEGATIVE (NEGATIVE); PROPOXYPHENE SCREEN, URINE NEGATIVE (NEGATIVE); TRICYCLIC ANTIDEPRESSANT,URINE NEGATIVE (NEGATIVE)
== END 2018-10-23 00:41 | disposition left against medical advice (07) ==
LOC: EDUNIT# → EDBD → ED 22:06
DX: E86.0 Dehydration (principal); F10.929 Alcohol use, unspecified with intoxication, unspecified; S50.311A Abrasion of right elbow, initial encounter; W18.30XA Fall on same level, unspecified, initial encounter; W22.8XXA Striking against or struck by other objects, initial encounter; F17.200 Nicotine dependence, unspecified, uncomplicated
CPT/HCPCS: 36415; 71045; 80053; 80306; 80320; 81003; 83690; 84484; 85025; 93005; 96374; 99283; A9270; J3411; 81001; 87086

== ENCOUNTER 2018-12-11 19:11 | Outpatient (CLI) | payer MEDICAID | END 2018-12-11 19:12 | disposition critical access hospital (66) | LOC: EMS 19:11 | PROVIDERS: ATTEND Surgery | DX: R07.89 Other chest pain (principal); V47.5XXA Car driver injured in collision with fixed or stationary object in traffic accident, initial encounter; W22.10XA Striking against or struck by unspecified automobile airbag, initial encounter; Y92.414 Local residential or business street as the place of occurrence of the external cause | CPT/HCPCS: A0425; A0429; A0999 ==

== ENCOUNTER 2018-12-11 19:38 | Emergency (ER) | payer MEDICAID ==
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
[2018-12-11] MEDS ORDERED: IOVERSOL 320 100 ML VIAL IVP ONE ×2 (20:03→20:46)
[2018-12-11 20:14] LABS: BASOPHILS # (AUTO) 0.1 10^3/uL (0.0-0.1); BASOPHILS % (AUTO) 1.3 %; EOSINOPHILS # (AUTO) 0.7 10^3/uL (0.0-0.7); EOSINOPHILS % (AUTO) 6.8 %; HGB - HEMOGLOBIN 14.7 g/dL (12.0-16.0); LYMPHOCYTES # (AUTO) 3.8 10^3/uL (1.5-3.5); LYMPHOCYTES % (AUTO) 34.4 %; MEAN CORPUSCULAR HEMOGLOBIN 33.1 pg (27.0-31.0); MEAN CORPUSCULAR HGB CONC 34.5 g/dL (32.0-36.0); MEAN CORPUSCULAR VOLUME 95.9 fL (81.0-99.0); MEAN PLATELET VOLUME 7.9 fL (7.9-10.8); MONOCYTES # (AUTO) 1.1 10^3/uL (0.0-1.0); NEUTROPHILS # (AUTO) 5.2 10^3/uL (1.5-6.6); NEUTROPHILS % (AUTO) 47.5 %; PLT - PLATELET COUNT 366 10^3/uL (130-450); RED BLOOD COUNT 4.43 10^6/uL (4.20-5.40); RED CELL DISTRIBUTION WIDTH 12.5 % (12.0-15.0); WHITE BLOOD COUNT 10.9 x10^3/uL (4.8-10.8)
[2018-12-11 20:19] LABS: INR 1.1 (0.8-1.2); PT - PROTHROMBIN TIME 11.9 secs (9.9-12.6)
[2018-12-11 20:28] LABS: ALBUMIN 3.6 g/dL (3.2-5.5); ALBUMIN/GLOBULIN RATIO 1.2 (1.0-2.2); BILIRUBIN,TOTAL 0.3 mg/dL (0.2-1.0); CALCIUM 8.9 mg/dL (8.5-10.3); CREATININE 0.7 mg/dL (0.4-1.0); TOTAL PROTEIN 6.5 g/dL (6.7-8.2)
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
--- NOTE | 2018-12-11 21:37 | XRAY Report ---
Reason: wrist inj Procedure Date: 12/11/2018 Accession Number: [id number] / [id number] Procedure: XR - Wrist 4 View RT CPT Code: FULL RESULT: EXAM: RIGHT WRIST RADIOGRAPHY EXAM DATE: 12/11/2018 08:52 PM. CLINICAL HISTORY: Wrist inj. COMPARISON: WRIST 3 VIEW RT 10/23/2017 3:52 PM WRIST 4 VIEW RT 02/22/2018 3:19 PM. TECHNIQUE: 4 views. FINDINGS: Bones: There is a new subtle cortical step off of the distal articular surface of the radius near the proximal pole of the scaphoid on the scaphoid view. There is chronic spurring of the distal scaphoid. Joints: There is scapholunate joint space widening. No acute dislocation. Soft Tissues: There is mild soft tissue swelling. IMPRESSION: Suspicious for a nondisplaced intra-articular fracture of the distal radius near the proximal pole of the scaphoid. 2. 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 RADIA
[2018-12-11 22:01] VITALS: BP 122/79
== END 2018-12-11 22:02 | disposition home or self-care (01) ==
LOC: EDUNIT# → ED 19:38
DX: S22.22XA Fracture of body of sternum, initial encounter for closed fracture (principal); S52.571A Other intraarticular fracture of lower end of right radius, initial encounter for closed fracture; V47.5XXA Car driver injured in collision with fixed or stationary object in traffic accident, initial encounter; Y92.410 Unspecified street and highway as the place of occurrence of the external cause; F10.920 Alcohol use, unspecified with intoxication, uncomplicated; F17.200 Nicotine dependence, unspecified, uncomplicated
CPT/HCPCS: 29125; 36415; 70450; 71045; 71260; 72125; 73110; 74177; 80053; 80320; 83690; 85025; 85610; 93005; 99283; 99284; Q9967

== ENCOUNTER 2019-07-15 14:35 | Outpatient (CLI) | payer MEDICAID | END 2019-07-15 14:36 | disposition short-term general hospital (02) | LOC: EMS 14:35 | PROVIDERS: ATTEND Surgery | DX: M25.512 Pain in left shoulder (principal); W01.0XXA Fall on same level from slipping, tripping and stumbling without subsequent striking against object, initial encounter; Y93.01 Activity, walking, marching and hiking; Y92.007 Garden or yard of unspecified non-institutional (private) residence as the place of occurrence of the external cause | CPT/HCPCS: A0425; A0427; A0999 ==

== ENCOUNTER 2019-07-27 15:58 | Outpatient (CLI) | payer MEDICAID ==
--- NOTE | 2019-07-28 14:28 | XRAY Report ---
Reason: PREOP Procedure Date: 07/27/2019 Accession Number: [id number] / [id number] Procedure: XRN - Chest 2 View X-Ray CPT Code: 06985 Final Report FULL RESULT: EXAM: CHEST RADIOGRAPHY EXAM DATE: 07/27/2019 04:18 PM. CLINICAL HISTORY: Preoperative evaluation. COMPARISON: SHOULDER 3 VIEW LT 07/22/2019 2:36 PM CHEST 1 VIEW 12/11/2018 7:40 PM. TECHNIQUE: 2 views. FINDINGS: Lungs/Pleura: No focal opacities evident. No pleural effusion. No pneumothorax. Normal volumes. Mediastinum: Heart and mediastinal contours are unremarkable. Aortic calcifications are present. Other: Displaced left humeral head/neck fracture grossly similar to the extent visualized. No new osseous abnormality evident. IMPRESSION: No convincing acute cardiopulmonary abnormality. RADIA
== END 2019-07-27 15:59 | disposition home or self-care (01) ==
LOC: DI.N 15:58
PROVIDERS: ATTEND Physician Assistant Medical
DX: Z01.818 Encounter for other preprocedural examination (principal)
CPT/HCPCS: 71046

== ENCOUNTER 2019-07-29 13:02 | Outpatient (CLI) | payer MEDICAID ==
--- NOTE | 2019-07-29 14:06 | CT Report ---
Reason: LT PROXIMAL HUMERUS FRACTURE Procedure Date: 07/29/2019 Accession Number: [id number] / [id number] Procedure: CT - UPPER EXTREMITY WO - LT CPT Code: Final Report FULL RESULT: EXAM: LEFT SHOULDER CT WITHOUT CONTRAST EXAM DATE: 07/29/2019 01:24 PM. CLINICAL HISTORY: Proximal left humeral fracture. COMPARISON: SHOULDER 3 VIEW LT 07/22/2019 2:36 PM XR SHOULDER LT MIN 2V 07/15/2019 3:29 PM. TECHNIQUE: Thin-section axial images were acquired of the shoulder without contrast. Post-processing: Coronal and sagittal reformats. Other: None. In accordance with CT protocol optimization, one or more of the following dose reduction techniques were utilized for this exam: automated exposure control, adjustment of mA and/or KV based on patient size, or use of iterative reconstructive technique. FINDINGS: There is a comminuted fracture involving the proximal humeral metaphysis, bicipital groove, lesser tuberosity, greater tuberosity, posterior medial aspect of the humeral head-neck junction. Most of the humeral head articular surface is intact. The humeral head is internally rotated and also subluxed posteriorly relative to the glenoid. The fracture at the proximal humeral metaphysis is comminuted, angulated, and displaced by up to approximately 1.5-2 cm. The comminuted fracture at the lesser tuberosity is displaced by up to approximately 6 mm. The fracture through the greater tuberosity is nondisplaced. There is some calcification or callus forming within the muscles adjacent to the fracture fragments. Small to moderate size joint effusion. Type I shaped acromion. Mild AC joint osteoarthrosis. Musculature: Normal. No fatty atrophy. Other: None. IMPRESSION: 1. Comminuted fracture involving the proximal humeral metaphysis, bicipital groove, lesser tuberosity, greater tuberosity, and posterior medial aspect of the humeral head-neck junction. 2. Calcifications are callus forming within the muscles adjacent to the proximal humeral fracture fragments. 3. Small to moderate sized joint effusion. 4. Internal rotation and posterior subluxation of the humeral head relative to the glenoid. RADIA
== END 2019-07-29 13:03 | disposition home or self-care (01) ==
LOC: DI 13:02
PROVIDERS: ATTEND Orthopaedic Surgery Sports Medicine
DX: S42.292A Other displaced fracture of upper end of left humerus, initial encounter for closed fracture (principal); M25.412 Effusion, left shoulder; M25.812 Other specified joint disorders, left shoulder

== ENCOUNTER 2019-08-01 11:43 | Outpatient (CLI) | payer MEDICAID ==
[2019-08-01 19:12] LABS: BASOPHILS # (AUTO) 0.1 10^3/uL (0.0-0.1); BASOPHILS % (AUTO) 1.5 %; EOSINOPHILS # (AUTO) 0.6 10^3/uL (0.0-0.7); EOSINOPHILS % (AUTO) 5.9 %; LYMPHOCYTES # (AUTO) 2.2 10^3/uL (1.5-3.5); LYMPHOCYTES % (AUTO) 23.3 %; MEAN CORPUSCULAR HEMOGLOBIN 30.2 pg (27.0-31.0); MEAN CORPUSCULAR VOLUME 97.6 fL (81.0-99.0); MEAN PLATELET VOLUME 10.9 fL (7.9-10.8); MONOCYTES # (AUTO) 0.8 10^3/uL (0.0-1.0); MONOCYTES % (AUTO) 8.5 %; NEUTROPHILS # (AUTO) 5.6 10^3/uL (1.5-6.6); NEUTROPHILS % (AUTO) 60.5 %; PLT - PLATELET COUNT 624 10^3/uL (130-450); RED BLOOD COUNT 4.63 10^6/uL (4.20-5.40); WHITE BLOOD COUNT 9.3 x10^3/uL (4.8-10.8)
[2019-08-01 19:34] LABS: ALBUMIN 3.5 g/dL (3.2-5.5); BILIRUBIN,TOTAL 0.6 mg/dL (0.2-1.0); CALCIUM 9.2 mg/dL (8.5-10.3); CREATININE 0.9 mg/dL (0.4-1.0); TOTAL PROTEIN 7.1 g/dL (6.7-8.2)
== END 2019-08-01 23:59 | disposition home or self-care (01) ==
LOC: LAB.N 11:43
PROVIDERS: ATTEND Physician Assistant Medical
DX: Z01.818 Encounter for other preprocedural examination (principal); R29.6 Repeated falls
CPT/HCPCS: 36415; 80053; 82306; 83880; 85025

== ENCOUNTER 2019-08-03 09:09 | Day surgery (SDC) | payer MEDICAID ==
[~2019-08-03 09:09] MED LIST: CEFAZOLIN SODIUM IN 0.9 % NACL 2 GM/100 ML BAG IV ONE
[2019-08-03] MEDS ORDERED: NEOSTIGMINE 1 MG/1 ML 10 ML MDV IVP ONE (09:10)
[2019-08-03] MEDS ORDERED: GLYCOPYRROLATE 1 MG/5 ML VIAL IVP ONE (09:10)
[2019-08-03] MEDS ORDERED: KETOROLAC 30 MG/ML VIAL IVP ONE (09:10)
[2019-08-03] MEDS ORDERED: PHENYLEPHRINE 10 MG/ML VIAL IV ONE (09:10)
[2019-08-03] MEDS ORDERED: PROPOFOL 200 MG/20 ML VIAL IVP ONE (09:10)
[2019-08-03] MEDS ORDERED: ROCURONIUM 50 MG/5 ML VIAL IVP ONE (09:10)
[2019-08-03] MEDS ORDERED: ePHEDrine 50 MG/ML VIAL IVP ONE (09:10)
[2019-08-03] MEDS ORDERED: MIDAZOLAM 2 MG/2 ML VIAL IVP ONE (09:10)
[2019-08-03] MEDS ORDERED: DEXAMETHASONE 4 MG/ML VIAL IVP ONE (09:10)
[2019-08-03] MEDS ORDERED: LACTATED RINGERS 1,000 ML IV ONE ×2 (09:16→12:22)
--- NOTE | 2019-08-03 09:50 | ANESTHESIA ---
Pre-Anesthesia VS, & Labs - Diagnosis left proximal humerus fx - Procedure left proximal humerus ORIF Vital Signs: Temp Pulse Resp BP Pulse Ox 36.6 C 84 14 141/94 H 98 08/03/19 09:18 08/03/19 09:18 08/03/19 09:18 08/03/19 09:18 08/03/19 09:18 Height 5 ft 8 in Weight (kg) 52 kg Body Mass Index 18.2 - Is Patient ?: No Home Medications and Allergies Home Medications: Ambulatory Orders Losartan [Cozaar] 100 mg PO DAILY 08/02/19 Melatonin 10 mg SL QPM 08/02/19 Metoprolol Succinate 25 mg PO DAILY 08/02/19 DULoxetine [Cymbalta] 90 mg PO DAILY 10/22/17 Gabapentin 1,200 mg PO QPM 10/22/17 lamoTRIgine [Lamictal] 200 mg PO DAILY 10/22/17 Losartan [Cozaar] 100 mg PO DAILY 08/02/19 Melatonin 10 mg SL QPM 08/02/19 Metoprolol Succinate 25 mg PO DAILY 08/02/19 Allergies/Adverse Reactions: Allergies Allergy/AdvReac Type Severity Reaction Status Date / Time Sulfa (Sulfonamide Allergy Rash Verified 08/02/19 09:23 Antibiotics) codeine AdvReac Emesis Verified 08/02/19 09:23 Anes History & Medical History - Anesthetic History Anesthesia Complications: reports: No previous complications Family history of Anesthesia Complications: Denies Family history of Malignant Hyperthermia: Denies - Medical History Cardiovascular: reports: Hypertension Pulmonary: reports: None, Other Gastrointestinal: reports: Ulcers Urinary: reports: None Neuro: reports: None, Other (very remote history of seizures x3) Musculoskeletal: reports: Osteoarthritis, Osteoporosis Endocrine/Autoimmune: reports: None Blood Disorders: reports: None Skin: reports: None Smoking Status: Current every day smoker (1ppd x 30 years) Psychosocial: reports: Depression - Surgical History General: Hiatal hernia repair, Other Gynecologic: 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 Orthopedic: Other Exam General: Alert Dental: Dentures full Upper Mouth Openin Fingerbreadth Neck Mobility: Normal Mallampati classification: II Thyromental Distance: 4-6 cm Respiratory: Lungs clear, Decreased breath sounds Cardiovascular: Regular rate, Normal S1, Normal S2, No murmurs Abdomen: Normal bowel sounds, Soft, No tenderness, No hepatospenomegaly, No masses Extremities: No clubbing, No cyanosis, No edema, Normal pulses, No tenderness/swelling Neurological: Normal gait, Normal speech, Strength at 5/5 X4 ext, Normal tone, Sensation intact, Cranial nerves 3-12 NL, Reflexes 2+ Mental/Cognitive Status: Alert/Oriented X3, Normal for patient Cognitive Status: Within normal limits Plan Anesthesia Type: General Regional Block: Per Surgeon's request for Post Op pain control Consent for Procedure(s) Verified and Reviewed: Yes Code Status: Attempt Resuscitation ASA classification: 3-Severe systemic disease Is this case an emergency?: No
[2019-08-03] MEDS ORDERED: fentaNYL 100 MCG/2 ML VIAL ONE (10:28)
[2019-08-03] MEDS ORDERED: BUPIVACAINE 0.25% PF 30 ML VIAL SUBQ ONE (12:38)
[2019-08-03] MEDS: HYDROmorphone 1 MG/ML CARPUJECT ONE ×2 (14:06→14:25)
[2019-08-03] MEDS ORDERED: ACETAMINOPHEN 1,000 MG/100 ML 100 ML IV ONE (14:11)
--- NOTE | 2019-08-03 14:14 | IMMEDIATE POSTOPERATIVE NOTE ---
Immediate Postoperative Note - Procedure Note Procedure Date: 08/03/19 Pre-Op Diagnosis: Left proximal humerus fracture Procedure: Left proximal humerus open reduction internal fixation Post-Op Diagnosis: Same, long head biceps rupture Primary Surgeon: Swetha Jesus Roll Forming Machine Set Up Operator: None Anesthesia Type: General ET tube, Local Complications: No complications Estimated Blood Loss (in cc): 50 Specimens and Cultures: None Plan of Care: Patient Daniel procedure well instrument and sponge counts correct patient transferred to recovery room in stable condition Patient's left upper extremity precautions nonweightbearing left upper extremity no active left shoulder motion may gently move elbow wrist and hand when out of sling but only at rest. Otherwise in sling. Keep dressing clean dry and intact Follow-up 10 to 14 days orthopedic clinic or sooner should problems questions or worsening of her condition arise
[2019-08-03] MEDS ORDERED: ONDANSETRON 4 MG/2 ML VIAL IVP PRN (14:15)
[2019-08-03] MEDS ORDERED: oxyCODONE 5 MG TABLET PO PRN (14:15)
[2019-08-03] MEDS ORDERED: oxyCODONE 5 MG TABLET ONE (14:50)
[2019-08-03 15:01] VITALS: BP 107/71
--- NOTE | 2019-08-03 16:03 | OPERATIVE REPORT ---
DATE OF SERVICE: 08/03/2019 Physician: Jeet Jesus MD SURGEON: Jeet Jesus MD PLATE FURNACE OPERATOR: None. ANESTHESIOLOGIST: Mario Manuel CRNA. ANESTHESIA TYPE: General anesthesia, endotracheal with 30 mL of 0.25% plain Marcaine local. ESTIMATED BLOOD LOSS: 150 mL. FLUIDS: 1600 mL lactated Ringer's. PREOPERATIVE ANTIBIOTICS: Weight-based IV Ancef. COMPRESSION DEVICE: Bilateral calf SCD boots. INTRAOPERATIVE COMPLICATIONS: None noted. INTRAOPERATIVE FINDINGS: There was noted to be a surgical neck fracture, proximal humerus, left side , with an anterior position of the shaft relative to the head. There was some evidence of callus and soft tissue adhesions. There was some comminution of the larger head fragment adjacent to the great er tuberosity. Long head biceps was noted to be ruptured. Post-reduction, the shaft is "potted" int o the head to restore improved head shaft angle. Post-plate fixation, there was good integrity of th e repair, with proximal and distal aspects of the humerus moving as a unit, with smooth range of bubba on of the glenohumeral joint, which was located and extraarticular hardware. HISTORY OF PRESENT ILLNESS AND INDICATIONS: Patient is a 59-year-old female who sustained a left pro ximal humerus fracture a number of weeks ago. She was indicated for operative treatment. Please see preoperative discussion which involved risks, benefits, alternatives. These were again highlighted in the preoperative care unit. Her questions were answered. She verbalized understanding of the abo ve and verbalized wish to proceed with operative treatment as above. PREOPERATIVE DIAGNOSIS: Left proximal humerus fracture. POSTOPERATIVE DIAGNOSIS: Left proximal humerus fracture. PROCEDURE PERFORMED: Left shoulder proximal humerus open reduction and internal fixation. PROCEDURE: On 08/03/2019, patient was identified in the preoperative care unit. She identified the left shoulder as the operative site, signed by the operating surgeon. The patient received preoperat venkat weight-based IV Ancef. She was brought to the operating room and placed supine on the operating table. General anesthesia was administered, then she was placed in a beach-chair position with head, neck and extremities placed in anatomically comfortable and safe position to avoid peripheral nerve stretch and compression. At this time, left upper extremity was draped out and then pre-scrubbed wit h Hibiclens solution and then alcohol, followed by ChloraPrep preparation and draping under sterile c ondition. At this time, surgical pause identified the left shoulder as the operative site. At this point, a deltopectoral incision was made through skin and spreading dissection carried out to the del topectoral interval. Cephalic vein was brought laterally with the deltoid, and this plane was develo ped from the coracoid distally. A Wall was used to elevate the deltoid, as there was some scar tissu e there. The clavipectoral fascia was entered and then ultimately a [place] retractor was used to re tract. Care was taken to avoid over exuberant retraction to avoid hypotension injury to adjacent monica rovascular structures. At this time, the proximal aspect of the humerus was identified and debrided of some callus and adhesions. Biceps were noted to be ruptured. The fracture fragments were identif ied and then #5 FiberWire was placed in the tendosseous junction of the subscapularis, supraspinatus and infraspinatus to capture the proximal fragment. At this point, with a Wall and some elevation, w ith relaxation of the patient, there was reduction of the shaft into the humeral head with intentiona l compression and impaction. Once the position was optimized, then the #5 FiberWires were placed thr ough a short proximal humerus locking plate, which was then K-wired into place. Positioning was chec ked with fluoroscopic images in multiple planes, and then the oval hole was placed distally with a no nlocking screw, followed by 2 locking screws proximally. This was again checked to confirm appropria te fracture reduction and hardware placement. At this time, multiple additional proximal locking scr ews, unicortical, were placed and then 2 additional locking screws were placed in the shaft, thereby completing the screw fixation. Screws were tightened and the fracture reduction and hardware were no terrence to be acceptable. At this time, fluoroscopic images in multiple planes confirmed appropriate gary dware and fracture position with maximal reduction. At this point, the FiberWire sutures were tied o wilfredo the plate, and then the suture limbs were oversewn. At this point, copious irrigation was perfor med. Hemostasis was achieved, and then the deltopectoral interval was closed using 0 Vicryl, followe d by repeat irrigation and hemostasis. Skin was closed with 0 Vicryl, 2-0 Vicryl interrupted nylon s uture. Skin was washed and dried. Local anesthetic was infused, and then silver dressing was applie d, bio-occlusive. The patient was placed in a sling. The patient tolerated the procedure well. Instrument and sponge counts were correct. The patient wa s transferred to the recovery room in stable condition. The patient will follow standard postoperative left proximal humerus open reduction and internal fixa tion protocol. The patient will follow up in 10-14 days in the clinic or sooner should problems, questions or worsen ing of her condition arise. The patient declined offer to call boyfriend. Postoperative instructions previously reviewed and provided in writing. The patient will be on perio perative medication plan, including oxycodone and Keflex for 24 hours. She would use bowel regimen w hile using the narcotics. She denied any contraindication to these medications and will use them as directed. She had used oxycodone in the past without ill effect. TD: 08/03/2019 15:27
--- NOTE | 2019-08-03 16:43 | XRAY Report ---
Reason: left humeral fracture Procedure Date: 08/03/2019 Accession Number: [id number] / [id number] Procedure: FL - OR C-Arm Procedure CPT Code: Final Report FULL RESULT: EXAM: FLUOROSCOPIC GUIDANCE EXAM DATE: 08/03/2019 03:44 PM. CLINICAL HISTORY: Left humeral fracture. COMPARISON: None. FINDINGS: There are findings of proximal humerus fracture with ORIF with plate and screw fixation. IMPRESSION: Fluoroscopic guidance provided for orthopedic procedure. Total fluoroscopy time: 0.4 minutes. Number of images: 3. RADIA
== END 2019-08-03 09:10 | disposition home or self-care (01) ==
LOC: SDS 09:09
PROVIDERS: ATTEND Orthopaedic Surgery Sports Medicine
PROC: 0PSD04Z Reposition Left Humeral Head with Internal Fixation Device, Open Approach (ICD-10-PCS; principal; 2019-08-03 10:00)
DX: S42.222A 2-part displaced fracture of surgical neck of left humerus, initial encounter for closed fracture (principal); F17.210 Nicotine dependence, cigarettes, uncomplicated
CPT/HCPCS: 23615; A9270; C1713; J0131; J0690; J1170; J7120

== ENCOUNTER 2019-09-29 09:13 | Outpatient (CLI) | payer MEDICAID ==
--- NOTE | 2019-09-30 08:22 | Mammography Report ---
Reason: ROUTINE MAMMO Procedure Date: 09/29/2019 Accession Number: [id number] / [id number] Procedure: MGN - Screening Mammo Dig Bilat CPT Code: Final Report FULL RESULT: EXAM: Screening Mammo Dig Bilat DATE: 09/29/2019 9:44 AM CLINICAL HISTORY: Screening encounter. Family history of breast cancer in the mother at the age of 55. History of early menses. History of benign right breast biopsy. TECHNIQUE: (B) - Bilateral CC and MLO views were obtained. COMPARISON: 07/14/2018 through 06/07/2015. PARENCHYMAL PATTERN: (A) - The breast(s) demonstrate(s) scattered fibroglandular densities. FINDINGS: Seen in the right CC projection only 3.5 cm from the nipple centrally is a isodense partially obscured asymmetry which was not seen previously; this requires additional spot views and potentially ultrasound for clarification, ideally with 3-D mammography. There are no suspicious masses, calcifications, or areas of distortion in the left breast. IMPRESSION: Incomplete examination. BI-RADS category 0. RECOMMENDATION: (ADDMU) - Additional views using both Mammography and Ultrasound recommended. Right breast. BI-RADS CATEGORY: (0) - Incomplete Examination - need additional evaluation. STANDARD QUALIFYING STATEMENTS: 1. This examination was not reviewed with the aid of Computer-Aided Detection (CAD). 2. A negative or benign imaging report should not preclude biopsy if clinically suspicious findings are present. 3. Dense breasts may obscure an underlying neoplasm. 4. This examination was reviewed without the aid of 3D breast imaging (tomosynthesis).
== END 2019-09-29 09:14 | disposition home or self-care (01) ==
LOC: DI.N 09:13
DX: Z12.31 Encounter for screening mammogram for malignant neoplasm of breast (principal); R92.8 Other abnormal and inconclusive findings on diagnostic imaging of breast; Z80.3 Family history of malignant neoplasm of breast
CPT/HCPCS: 77067

== ENCOUNTER 2019-11-09 08:59 | Outpatient (CLI) | payer MEDICAID ==
--- NOTE | 2019-11-09 10:55 | Ultrasound Report ---
Reason: ABN MAMMO - RT SPEC VIEWS Procedure Date: 11/09/2019 Accession Number: [id number] / [id number] Procedure: US - Breast Unilateral Limited CPT Code: Final Report FULL RESULT: EXAM: Giovanni Special Views Dig RT, Breast Unilateral Limited DATE: 11/09/2019 9:48 AM CLINICAL HISTORY: Diagnostic examination. History of early menses. History of benign right breast biopsy. Family history of breast cancer in the mother at the age of 55. The patient is recalled from screening for a one view right breast asymmetry. TECHNIQUE: (R) - Right CC, medially and laterally rolled CC and ML images are obtained. Focused right breast ultrasound is performed. COMPARISON: 09/29/2019 through 06/07/2015. PARENCHYMAL PATTERN: (A) - The breast(s) demonstrate(s) scattered fibroglandular densities. FINDINGS: The previously seen CC view only asymmetry is not convincingly redemonstrated on additional CC projection views. Right ML view is normal with no suspicious masses, calcifications, or areas of distortion. Right breast ultrasound of all 4 quadrants of the breast cone ranging from 2 cm to 5 cm from the nipple is carefully performed. Normal breast tissue is identified without sonographic architectural distortion or mass is seen. IMPRESSION: Negative examination. BI-RADS category 1. RECOMMENDATION: (ANNUAL) - Recommend routine annual screening mammography. BI-RADS CATEGORY: (1) - Negative. STANDARD QUALIFYING STATEMENTS: 1. This examination was not reviewed with the aid of Computer-Aided Detection (CAD). 2. A negative or benign imaging report should not preclude biopsy if clinically suspicious findings are present. 3. Dense breasts may obscure an underlying neoplasm. 4. This examination was reviewed without the aid of 3D breast imaging (tomosynthesis).
== END 2019-11-09 09:00 | disposition home or self-care (01) ==
LOC: DI 08:59
PROVIDERS: ATTEND Physician Assistant Medical
DX: R92.8 Other abnormal and inconclusive findings on diagnostic imaging of breast (principal); N64.89 Other specified disorders of breast; Z80.3 Family history of malignant neoplasm of breast
CPT/HCPCS: 76642

== ENCOUNTER 2020-03-21 12:48 | Day surgery (SDC) | payer MEDICAID ==
[2020-03-21 13:51] LABS: BASOPHILS # (AUTO) 0.2 10^3/uL (0.0-0.1); BASOPHILS % (AUTO) 1.2 %; EOSINOPHILS # (AUTO) 0.2 10^3/uL (0.0-0.7); EOSINOPHILS % (AUTO) 1.6 %; HGB - HEMOGLOBIN 15.4 g/dL (12.0-16.0); LYMPHOCYTES # (AUTO) 1.9 10^3/uL (1.5-3.5); LYMPHOCYTES % (AUTO) 14.5 %; MEAN CORPUSCULAR HEMOGLOBIN 32.9 pg (27.0-31.0); MEAN CORPUSCULAR HGB CONC 34.5 g/dL (32.0-36.0); MEAN CORPUSCULAR VOLUME 95.5 fL (81.0-99.0); MEAN PLATELET VOLUME 9.2 fL (7.9-10.8); MONOCYTES # (AUTO) 1.3 10^3/uL (0.0-1.0); MONOCYTES % (AUTO) 9.4 %; NEUTROPHILS # (AUTO) 9.6 10^3/uL (1.5-6.6); NEUTROPHILS % (AUTO) 72.8 %; PLT - PLATELET COUNT 487 10^3/uL (130-450); RED BLOOD COUNT 4.68 10^6/uL (4.20-5.40); RED CELL DISTRIBUTION WIDTH 13.2 % (12.0-15.0); WHITE BLOOD COUNT 13.2 x10^3/uL (4.8-10.8)
[2020-03-21] MEDS ORDERED: SODIUM CHLORIDE 0.9% 1,000 ML IV STA (13:54)
[2020-03-21] MEDS ORDERED: GLUCAGON 1 MG/ML VIAL IVP STA (13:54)
[2020-03-21 14:01] LABS: CALCIUM 9.2 mg/dL (8.5-10.3); CREATININE 0.8 mg/dL (0.4-1.0)
--- NOTE | 2020-03-21 14:03 | ED Physician Documentation ---
History of Present Illness - Stated complaint Stated Complaint: food bolus - Chief complaint Chief Complaint: General - History obtained from History obtained from: Patient - History of Present Illness Timing: Last night Pain level max: 5 Pain level now: 5 - Additonal information Additional information: 59-year-old female presents to the emergency department stating that she has an impacted food bolus. States it is a piece of chicken. States this occurred last night. She is unable to tolerate her secretions. This is the third time this has happened. The other 2 times were in [place] approximately 5 years ago. No vomiting. No fevers. Nothing makes it better or worse. 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 - Present Medications Home Medications: Ambulatory Orders Medication Instructions Recorded Confirmed DULoxetine [Cymbalta] 90 mg PO DAILY 10/22/17 08/03/19 Gabapentin 1,200 mg PO QPM 10/22/17 08/03/19 lamoTRIgine [Lamictal] 200 mg PO DAILY 10/22/17 08/03/19 Losartan [Cozaar] 100 mg PO DAILY 08/02/19 08/03/19 Melatonin 10 mg SL QPM 08/02/19 08/03/19 Metoprolol Succinate 25 mg PO DAILY 08/02/19 08/03/19 - Allergies Allergies/Adverse Reactions: Allergies Allergy/AdvReac Type Severity Reaction Status Date / Time Sulfa (Sulfonamide Allergy Rash Verified 03/21/20 12:57 Antibiotics) codeine AdvReac Emesis Verified 03/21/20 12:57 - Social History Does the pt smoke?: Yes Smoking Status: Current every day smoker Does the pt drink ETOH?: Yes Does the pt have substance abuse?: No - Immunizations Immunizations are current?: Yes - POLST Patient has POLST: No PD ED PE NORMAL - Vitals Vital signs reviewed: Yes - General General: Alert and oriented X 3, No acute distress - HEENT HEENT: Moist mucous membranes - Neck Neck: Supple, no meningeal sign - Cardiac Cardiac: RRR, Strong equal pulses - Respiratory Respiratory: No respiratory distress, Clear bilaterally - Abdomen Abdomen: Soft, Non tender, Non distended - Derm Derm: Warm and dry - Neuro Neuro: Alert and oriented X 3 - Psych Psych: Normal mood, Normal affect Results - Vitals Vitals: Vital Signs - 24 hr 03/21/20 12:57 Temperature 36.8 C Heart Rate 120 H Respiratory 16 Rate Blood Pressure 141/92 H O2 Saturation 98 Oxygen O2 Source Room air - Labs Labs: Laboratory Tests 03/21/20 03/21/20 13:43 13:43 WBC 13.2 H RBC 4.68 Hgb 15.4 Hct 44.7 MCV 95.5 MCH 32.9 H MCHC 34.5 RDW 13.2 Plt Count 487 H MPV 9.2 Neut # (Auto) 9.6 H Lymph # (Auto) 1.9 [place] # (Auto) 1.3 H Eos # (Auto) 0.2 Baso # (Auto) 0.2 H Absolute Nucleated RBC 0.00 Nucleated RBC % 0.0 Sodium 141 Potassium 4.1 Chloride 104 Carbon Dioxide 25 Anion Gap 12.0 BUN 8 Creatinine 0.8 Estimated GFR (MDRD) 73 L Glucose 113 H Calcium 9.2 PD MEDICAL DECISION MAKING - ED course Complexity details: reviewed results, re-evaluated patient, considered differential, d/w patient, d/w it consultant ED course: Patient with an impacted food bolus. Given IV fluids. Given glucagon. No change in her symptoms. Discussed the case with Dr. Gamboa, general surgery on- call who will take the patient to the OR for endoscopy. This document was made in part using voice recognition software. While efforts are made to proofread this document, sound alike and grammatical errors may occur. Departure - Departure Disposition: ED Transfer to [facility] Clinical Impression: Esophageal obstruction due to food impaction Condition: Stable
--- NOTE | 2020-03-21 14:42 | ANESTHESIA ---
Pre-Anesthesia VS, & Labs - Diagnosis food bolus at esophagus - Procedure EGD, removal of same Vital Signs: Temp Pulse Resp BP Pulse Ox 36.8 C 120 H 16 141/92 H 98 03/21/20 12:57 03/21/20 12:57 03/21/20 12:57 03/21/20 12:57 03/21/20 12:57 Height 5 ft 8 in Weight (kg) 53.977 kg Body Mass Index 18.1 - NPO >8 hours - Is Patient ?: No - Lab Results Current Lab Results: Laboratory Tests 03/21/20 13:43: Sodium 141, Potassium 4.1, Chloride 104, Carbon Dioxide 25, Anion Gap 12.0, BUN 8, Creatinine 0.8, Estimated GFR (MDRD) 73 L, Glucose 113 H, Calcium 9.2 03/21/20 13:43: WBC 13.2 H, RBC 4.68, Hgb 15.4, Hct 44.7, MCV 95.5, MCH 32.9 H, MCHC 34.5, RDW 13.2, Plt Count 487 H, MPV 9.2, Neut # (Auto) 9.6 H, Lymph # (Auto) 1.9, [place] # (Auto) 1.3 H, Eos # (Auto) 0.2, Baso # (Auto) 0.2 H, Absolute Nucleated RBC 0.00, Nucleated RBC % 0.0 Lab results reviewed: Yes Fish Bones: 03/21/20 13:43 03/21/20 13:43 Home Medications and Allergies Active Medications Sodium Chloride (Normal Saline 0.9%) 1,000 mls @ 200 mls/hr IV .Q5H STA Stop: 03/21/20 18:53 Last Admin: 03/21/20 14:01 Dose: 200 mls/hr Documented by: DULoxetine [Cymbalta] 90 mg PO DAILY 10/22/17 Gabapentin 1,200 mg PO QPM 10/22/17 lamoTRIgine [Lamictal] 200 mg PO DAILY 10/22/17 Losartan [Cozaar] 100 mg PO DAILY 08/02/19 Melatonin 10 mg SL QPM 08/02/19 Metoprolol Succinate 25 mg PO DAILY 08/02/19 Allergies/Adverse Reactions: Allergies Allergy/AdvReac Type Severity Reaction Status Date / Time Sulfa (Sulfonamide Allergy Rash Verified 03/21/20 12:57 Antibiotics) codeine AdvReac Emesis Verified 03/21/20 12:57 Anes History & Medical History - Anesthetic History Anesthesia Complications: reports: No previous complications Family history of Anesthesia Complications: Denies Family history of Malignant Hyperthermia: Denies - Medical History Cardiovascular: reports: None Pulmonary: reports: None, Other Gastrointestinal: reports: None Urinary: reports: None Neuro: reports: None, Other Musculoskeletal: reports: None Endocrine/Autoimmune: reports: None Blood Disorders: reports: None Skin: reports: None Smoking Status: Current every day smoker - Surgical History General: Hiatal hernia repair Gynecologic: 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 Orthopedic: Other Exam General: Alert, Oriented x3, Cooperative Dental: Dentures full Upper Mouth Openin Fingerbreadth Neck Mobility: Normal Mallampati classification: II Thyromental Distance: greater than 6 cm Respiratory: Lungs clear, Normal breath sounds, No respiratory distress Cardiovascular: Regular rate (tachy, regular) Neurological: Normal speech (excessive salivation r/t food bolus) Mental/Cognitive Status: Alert/Oriented X3, Normal for patient Cognitive Status: Within normal limits Plan Anesthesia Type: General (rsi) Consent for Procedure(s) Verified and Reviewed: Yes Code Status: Attempt Resuscitation ASA classification: 2-Mild systemic disease Is this case an emergency?: Yes
[2020-03-21] MEDS ORDERED: SUCCINYLCHOLINE 200 MG/10 ML VIAL ONE (15:12)
[2020-03-21] MEDS ORDERED: LIDOCAINE-MPF 2% 5 ML VIAL IM ONE (16:11)
[2020-03-21] MEDS ORDERED: DEXAMETHASONE 4 MG/ML VIAL IVP ONE (16:11)
[2020-03-21] MEDS ORDERED: fentaNYL 100 MCG/2 ML VIAL IVP ONE (16:11)
[2020-03-21] MEDS ORDERED: PROPOFOL 200 MG/20 ML VIAL IVP ONE (16:11)
[2020-03-21] MEDS ORDERED: ONDANSETRON 4 MG/2 ML VIAL IVP ONE (16:11)
--- NOTE | 2020-03-21 16:26 | HISTORY & PHYSICAL EXAMINATION ---
Chief Complaint - Chief Complaint Chief Complaint: cannot swallow History of Present Illness - Admitted From Admitted From:: ED - History Obtained From History obtained from: patient Exam Limitations: none - History of Present Illness HPI Comment/Other: She has history of food getting stuck. She has had a food impaction requiring EGD and removal 3 times now. She has not had significant esophageal findings. She had chicken last night and has not been able to swallow saliva since. She is in no distress. 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 - POLST Patient has POLST: No Meds/Allgy - Home Medications Home Medications: Ambulatory Orders Medication Instructions Recorded Confirmed DULoxetine [Cymbalta] 90 mg PO DAILY 10/22/17 08/03/19 Gabapentin 1,200 mg PO QPM 10/22/17 08/03/19 lamoTRIgine [Lamictal] 200 mg PO DAILY 10/22/17 08/03/19 Losartan [Cozaar] 100 mg PO DAILY 08/02/19 08/03/19 Melatonin 10 mg SL QPM 08/02/19 08/03/19 Metoprolol Succinate 25 mg PO DAILY 08/02/19 08/03/19 - Allergies Allergies/Adverse Reactions: Allergies Allergy/AdvReac Type Severity Reaction Status Date / Time Sulfa (Sulfonamide Allergy Rash Verified 03/21/20 12:57 Antibiotics) codeine AdvReac Emesis Verified 03/21/20 12:57 Exam - Vital Signs Vital Signs: Vital Signs x48h Temp Pulse Resp BP Pulse Ox 03/21/20 12:57 36.8 C 120 H 16 141/92 H 98 - Physical Exam General Appearance: positive: No acute distress, Alert Eyes Bilateral: positive: Normal inspection, PERRL, EOMI Neck: positive: No JVD, Trachea midline Respiratory: positive: No respiratory distress Rectal: positive: Non-tender, Other (non distended) Neurologic/Psychiatric: positive: Oriented x3 Conclusion/Plan - Problem List (1) Esophageal obstruction due to food impaction Conclusion/Plan: plan egd and removal food impaction. parq held and consent obtained - Lab Results Lab results reviewed: Yes Fish Bones: 03/21/20 13:43 03/21/20 13:43
[2020-03-21] MEDS ORDERED: LACTATED RINGERS 1,000 ML IV ONE (16:47)
[2020-03-21 17:32] VITALS: BP 137/89
== END 2020-03-21 16:11 | disposition home or self-care (01) ==
LOC: ED 12:48 → SDS 16:10
PROVIDERS: ATTEND Surgery
DX: T18.128A Food in esophagus causing other injury, initial encounter (principal); F17.200 Nicotine dependence, unspecified, uncomplicated
CPT/HCPCS: 43247; 80048; 85025; 87081; J0330; J7120; 36415

== ENCOUNTER 2020-06-07 07:00 | Outpatient (CLI) | payer MEDICAID ==
[2020-06-07 19:04] LABS: BASOPHILS # (AUTO) 0.1 10^3/uL (0.0-0.1); BASOPHILS % (AUTO) 1.3 %; EOSINOPHILS # (AUTO) 0.6 10^3/uL (0.0-0.7); EOSINOPHILS % (AUTO) 6.6 %; HGB - HEMOGLOBIN 16.2 g/dL (12.0-16.0); LYMPHOCYTES # (AUTO) 3.2 10^3/uL (1.5-3.5); LYMPHOCYTES % (AUTO) 33.3 %; MEAN CORPUSCULAR HEMOGLOBIN 31.8 pg (27.0-31.0); MEAN CORPUSCULAR HGB CONC 32.6 g/dL (32.0-36.0); MEAN CORPUSCULAR VOLUME 97.6 fL (81.0-99.0); MEAN PLATELET VOLUME 10.7 fL (7.9-10.8); MONOCYTES # (AUTO) 0.9 10^3/uL (0.0-1.0); MONOCYTES % (AUTO) 9.2 %; NEUTROPHILS # (AUTO) 4.7 10^3/uL (1.5-6.6); NEUTROPHILS % (AUTO) 49.3 %; PLT - PLATELET COUNT 441 10^3/uL (130-450); RED BLOOD COUNT 5.09 10^6/uL (4.20-5.40); RED CELL DISTRIBUTION WIDTH 12.9 % (12.0-15.0); WHITE BLOOD COUNT 9.6 x10^3/uL (4.8-10.8)
[2020-06-07 19:14] LABS: ALBUMIN 4.1 g/dL (3.2-5.5); ALBUMIN/GLOBULIN RATIO 1.3 (1.0-2.2); ALKALINE PHOSPHATASE 93 IU/L (42-121); ALT ALANINE AMINOTRANSFERASE 20 IU/L (10-60); AST ASPARTATE AMINOTRANSFERASE 19 IU/L (10-42); BILIRUBIN,TOTAL 0.5 mg/dL (0.2-1.0); BUN - BLOOD UREA NITROGEN 14 mg/dL (6-20); CALCIUM 9.3 mg/dL (8.5-10.3); CARBON DIOXIDE - CO2 26 mmol/L (21-32); CHLORIDE 102 mmol/L (101-111); CHOL/HDL RATIO 4.2 (<4.4); CHOLESTEROL 244 mg/dL; CREATININE 0.9 mg/dL (0.4-1.0); GLUCOSE 74 mg/dL (70-100); HDL CHOLESTEROL 58 mg/dL; LDL CHOLESTEROL,CALCULATED 162 mg/dL; LDL/HDL RATIO 2.8 (<4.4); SODIUM 138 mmol/L (135-145); TOTAL PROTEIN 7.3 g/dL (6.7-8.2); VLDL CHOLESTEROL 24 mg/dL
== END 2020-06-07 23:59 | disposition home or self-care (01) ==
LOC: LAB.WCP 07:00
PROVIDERS: ATTEND Nurse Practitioner Family
DX: S42.292A Other displaced fracture of upper end of left humerus, initial encounter for closed fracture (principal); F10.10 Alcohol abuse, uncomplicated; F39 Unspecified mood [affective] disorder; F32.9 Major depressive disorder, single episode, unspecified; E55.9 Vitamin D deficiency, unspecified
CPT/HCPCS: 36415; 80050; 80061; 82306; 83721

== ENCOUNTER 2020-07-29 12:33 | Emergency (ER) | payer MEDICAID ==
[2020-07-29 12:43] VITALS: BP 153/75
--- NOTE | 2020-07-29 12:55 | ED Physician Documentation ---
History of Present Illness - Stated complaint Stated Complaint: RT FT INJ - Chief complaint Chief Complaint: Ext Problem - History obtained from History obtained from: Patient - Additonal information Additional information: Pt comes to the emergency department complaining of right foot pain and swelling after stepping in a hole while mowing the lawn yesterday. Patient states she twisted her foot and felt a pain in the lateral aspect of the dorsum. Patient states it has hurt to bear weight since. She was not injured in any other way. She does have a prior injury to that ankle and had ORIF of the ankle. No other injuries and no other complaints at this time. Review of Systems Ten Systems: 10 systems reviewed and negative Constitutional: reports: Reviewed and negative Eyes: reports: Reviewed and negative Ears: reports: Reviewed and negative Nose: reports: Reviewed and negative Throat: reports: Reviewed and negative Cardiac: reports: Reviewed and negative Respiratory: reports: Reviewed and negative GI: reports: Reviewed and negative : reports: Reviewed and negative Skin: reports: Reviewed and negative Musculoskeletal: reports: Extremity pain, Extremity swelling, Pain with weight bearing Neurologic: reports: Reviewed and negative Psychiatric: reports: Reviewed and negative Endocrine: reports: Reviewed and negative Immunocompromised: reports: Reviewed and negative PD PAST MEDICAL HISTORY - Past Medical History Cardiovascular: None Respiratory: None, Other Neuro: None, Other Endocrine/Autoimmune: None GI: None 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 HEENT: Chronic vision loss Psych: Depression, Anxiety, Other Musculoskeletal: None Derm: None - Past Surgical History Past Surgical History: Yes General: Hiatal hernia repair 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: 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 - Present Medications Home Medications: Ambulatory Orders Medication Instructions Recorded Confirmed DULoxetine [Cymbalta] 90 mg PO DAILY 10/22/17 08/03/19 Gabapentin 1,200 mg PO QPM 10/22/17 08/03/19 lamoTRIgine [Lamictal] 200 mg PO DAILY 10/22/17 08/03/19 Losartan [Cozaar] 100 mg PO DAILY 08/02/19 08/03/19 Melatonin 10 mg SL QPM 08/02/19 08/03/19 Metoprolol Succinate 25 mg PO DAILY 08/02/19 08/03/19 - Allergies Allergies/Adverse Reactions: Allergies Allergy/AdvReac Type Severity Reaction Status Date / Time Sulfa (Sulfonamide Allergy Rash Verified 07/29/20 12:40 Antibiotics) codeine AdvReac Emesis Verified 07/29/20 12:40 - Social History Does the pt smoke?: Yes Smoking Status: Current every day smoker Does the pt drink ETOH?: Yes Does the pt have substance abuse?: No - Immunizations Immunizations are current?: Yes - POLST Patient has POLST: No PD ED PE NORMAL - Vitals Vital signs reviewed: Yes - General General: Alert and oriented X 3, No acute distress, Well developed/nourished - HEENT HEENT: Atraumatic, PERRL, EOMI, Moist mucous membranes - Neck Neck: Supple, no meningeal sign - Cardiac Cardiac: Strong equal pulses - Respiratory Respiratory: No respiratory distress - Derm Derm: Warm and dry - Extremities Extremities: No deformity, Other (moderate edema over lateral aspect of R foot dorsum. Can move all toes. No palpable deformity. No tenderness of distal- most tibia or fibula at ankle.) - Neuro Neuro: Alert and oriented X 3 - Psych Psych: Normal mood, Normal affect Results - Vitals Vitals: Oxygen O2 Source Room air - Rads (name of study) R foot XR Radiology: Final report received, EMP read indepedently, See rad report (neg) PD MEDICAL DECISION MAKING - ED course Complexity details: reviewed results, re-evaluated patient, considered differential, d/w patient ED course: Pt was worked up with XR of R foot, which was negative. We have wrapped the pt's foot with an HECTOR bandage and given her a pair of crutches. We have discussed ice, elevation, and zldi-ibu-yusvdnt analgesia. Departure - Departure Disposition: 01 Home, Self Care Clinical Impression: Foot sprain Qualifiers: Encounter type: initial encounter Laterality: right Qualified Code(s): S93.601A - Unspecified sprain of right foot, initial encounter Condition: Stable Instructions: ED Sprain Foot Comments: Your x-rays look good--no broken bones. You have most likely sprained your foot, causing the swelling and pain. You may wear the HECTOR wrap for support and use the crutches to relieve pressure on your foot until it is feeling better. Be sure to prop your foot up whenever you are sitting down. You may use ice to help with swelling and pain, also. Kvsk-oyd-pwiqofn ibuprofen and Tylenol will also be helpful. Discharge Date/Time: 07/29/20 14:04
--- NOTE | 2020-07-29 13:42 | XRAY Report ---
PROCEDURE: Foot 3 View RT INDICATIONS: injury, swelling, pain TECHNIQUE: 3 views of the foot were acquired. COMPARISON: None FINDINGS: Bones: No there is osseous demineralization. Postsurgical changes of the distal fibula are incomplet jeovany evaluated. Mild degenerative changes of the first metatarsophalangeal joint. Fractures or disloca tions. No suspicious bony lesions. Soft tissues: No tibiotalar joint effusion. Achilles tendon appears normal. Mild calcaneal spurrin g at the Achilles insertion and the plantar fascial insertion. IMPRESSION: No acute osseous abnormality. Reviewed by: Tony Scott DO on 07/29/2020 12:41 PM NEGIN Approved by: Tony Scott DO on 07/29/2020 12:41 PM [facility] Station ID: [id number]
== END 2020-07-29 14:04 | disposition home or self-care (01) ==
LOC: ED 12:33
DX: S93.601A Unspecified sprain of right foot, initial encounter (principal); X50.1XXA Overexertion from prolonged static or awkward postures, initial encounter; Y93.H2 Activity, gardening and landscaping; F17.200 Nicotine dependence, unspecified, uncomplicated
CPT/HCPCS: 99282; 99283

== ENCOUNTER 2020-12-17 07:00 | Outpatient (CLI) | payer MEDICAID | END 2020-12-17 23:59 | disposition home or self-care (01) | LOC: COV 07:00 | PROVIDERS: ATTEND Surgery | DX: Z01.812 Encounter for preprocedural laboratory examination (principal); K64.8 Other hemorrhoids; K64.4 Residual hemorrhoidal skin tags; Z20.822 Contact with and (suspected) exposure to COVID-19 ==

== ENCOUNTER 2020-12-20 11:05 | Day surgery (SDC) | payer MEDICAID ==
[2020-12-20] MEDS ORDERED: metroNIDAZOLE 500 MG/100 ML 500 MG/100 ML BAG ONE (11:20)
[2020-12-20] MEDS ORDERED: CIPROFLOXACIN 400 MG/200 ML 400 MG/200 ML BAG IV ONE (11:20)
[2020-12-20] MEDS ORDERED: LACTATED RINGERS 1,000 ML IV ONE ×2 (11:54→15:40)
--- NOTE | 2020-12-20 12:18 | ANESTHESIA ---
Pre-Anesthesia VS, & Labs - Diagnosis hemorrhoids - Procedure hemorrhoidectomy Vital Signs: Temp Pulse Resp BP Pulse Ox 36.9 C 96 18 156/91 H 96 12/20/20 11:54 12/20/20 11:54 12/20/20 11:54 12/20/20 11:54 12/20/20 11:54 Height: 5 ft 8 in Weight (kg): 61.6 kg Body Mass Index: 20.6 BMI Classification: Healthy weight - NPO >8 hours - Is Patient ?: No Home Medications and Allergies DULoxetine [Cymbalta] 90 mg PO DAILY 10/22/17 Gabapentin 1,200 mg PO QPM 10/22/17 lamoTRIgine [Lamictal] 150 mg PO DAILY 10/22/17 Acetaminophen/Diphenhydramine [Acetaminophen-Diphenhyd 500-25] 3 each PO QPM 08/29/20 traZODone [Desyrel] 50 mg PO HS 08/29/20 Allergies/Adverse Reactions: Allergies Allergy/AdvReac Type Severity Reaction Status Date / Time Sulfa (Sulfonamide Allergy Rash Verified 07/29/20 12:40 Antibiotics) codeine AdvReac Emesis Verified 07/29/20 12:40 Anes History & Medical History - Anesthetic History Anesthesia Complications: reports: No previous complications - Medical History Cardiovascular: reports: Hypertension, Arrhythmia Pulmonary: reports: None Gastrointestinal: reports: Ulcers, Other Urinary: reports: None Neuro: reports: Other (siezure disorder, last one 4 years ago) Musculoskeletal: reports: Osteoarthritis Endocrine/Autoimmune: reports: None Blood Disorders: reports: None Skin: reports: None Smoking Status: Current every day smoker (1 pack per day for 30 years) History of Cancer?: No - Surgical History General: reports: Colonoscopy Gynecologic: reports: 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 Orthopedic: reports: Arthroscopic surgery, Other Exam General: Alert, Oriented x3 Dental: Dentures full Upper Mouth Opening: Greater than 4 Fingerbreadths Neck Mobility: Normal Mallampati classification: II Respiratory: Lungs clear Cardiovascular: Regular rate, Normal S1, Normal S2 Plan Anesthesia Type: General Consent for Procedure(s) Verified and Reviewed: Yes Code Status: Attempt Resuscitation ASA classification: 2-Mild systemic disease Is this case an emergency?: No
[2020-12-20] MEDS ORDERED: BUPIVACAINE 0.5%-EPI 1:200000 PF 30 ML VIAL ONE (12:32)
[2020-12-20] MEDS ORDERED: METOCLOPRAMIDE 10 MG/2 ML VIAL IVP PRN (12:32)
[2020-12-20] MEDS ORDERED: ONDANSETRON 4 MG/2 ML VIAL IVP PRN ×2 (12:32→15:31)
[2020-12-20] MEDS ORDERED: fentaNYL 100 MCG/2 ML VIAL IVP PRN (12:32)
[2020-12-20] MEDS ORDERED: NALOXONE 0.4 MG/ML VIAL IVP PRN (12:32)
[2020-12-20] MEDS ORDERED: ePHEDrine 50 MG/ML VIAL IVP PRN (12:32)
[2020-12-20] MEDS ORDERED: HYDROmorphone 0.5 MG/0.5 ML SYRINGE IVP PRN ×2 (12:32→15:31)
[2020-12-20] MEDS ORDERED: MORPHINE 2 MG/ML CARPUJECT IVP PRN (12:32)
[2020-12-20] MEDS ORDERED: ATROPINE ABBOJECT 1 MG/10 ML SYRINGE IVP PRN (12:32)
[2020-12-20] MEDS ORDERED: LIDOCAINE OINTMENT 5% 35.44 GM TUBE ONE (12:34)
[2020-12-20] MEDS ORDERED: LACTATED RINGERS 1,000 ML IV SCH ×2 (13:00→16:00)
[2020-12-20] MEDS ORDERED: MIDAZOLAM 2 MG/2 ML VIAL ONE (13:51)
[2020-12-20] MEDS ORDERED: fentaNYL 100 MCG/2 ML VIAL ONE ×3 (13:53→15:54)
[2020-12-20] MEDS ORDERED: BUPIVACAINE 0.5%-EPI 1:200000 PF 30 ML VIAL SUBQ ONE (14:33)
[2020-12-20] MEDS ORDERED: PROPOFOL 200 MG/20 ML VIAL IVP ONE (14:40)
[2020-12-20] MEDS ORDERED: SUGAMMADEX 200 MG/2 ML VIAL IVP ONE (14:42)
[2020-12-20] MEDS ORDERED: oxyCODONE 5 MG TABLET PO PRN (15:31)
--- NOTE | 2020-12-20 15:37 | OPERATIVE REPORT ---
Operative Report - General Procedure Date: 12/20/20 Planned Procedure: 1. Examiner anesthesia 2. Hemorrhoidectomy 3. Excision of perianal skin tags 4. Other indicated procedures Pre-Op Diagnosis: Hematochezia; colonoscopy with no colorectal source of bleeding; symptomati Procedure Performed: 1. Exam under anesthesia 2. Hemorrhoidectomy 3. Excision of perianal skin tags 4. Multiple internal hemorrhoidal arterial ligation 5. Proctoplasty/mucopexy 6. Rigid proctoscopy 7. Pudental block Post Op Diagnosis: Same; extensive rectal redundancy with rectocele - Procedure Note Primary Surgeon: Marcelina Secondary Surgeon: Cecilia Anesthesia Provider: Prabha Anesthesia Technique: General ET tube, Local Pathology: 1. Left lateral hemorrhoidal complex 2. Left lateral perianal skin tag 3. Right lateral perianal skin tag Estimated Blood Loss (mL): 10 Drain/Tube Type: Other (Surgicel x2 wrapped about Gelfoam in the manner of a tampon) Indications: Please see clinic note Findings: Anorectal exam please see proctoscopy findings below in body of operative text: Inspection: External Hemorrhoids - yes, however nonthrombosed and no active bleeding Fissure in ano -none Erythema (perianal) -none Other - left and right lateral perianal tags concerning for condylomatous change Palpation: Fluctuance -none Palpable cord -none Scar tissue -none Induration -none Digital Rectal Exam: Rectal Tone - diminished Fluctuance -none Sphincter - anterior thinning Masses -none Rectocele - large anterior rectocele Anoscopy: Hemorrhoids - Grade III Bleeding - stigmata of recent Distal proctitis -none Other - no full-thickness rectal prolapse appreciated Complications: None - Other Other Information/Narrative: The patient was taken to the operating room, placed supine on the operating table and after bilateral lower extremity compression devices were placed, general anesthesia was induced. The patient was placed in a high lithotomy with candy-cane stirrups and perioperative antibiotics were dosed within an hour of incision, and again, the patient was prepped and draped in the usual sterile fashion. TIME OUT was called and agreed to by all in room. A circumferential exam was performed with Freddie after 30 mL of 0.5% Marcaine w/ 1% lidocaine mixture was instilled. Findings are noted above. With this completed, the above noted hemorrhoidal complex(es) were addressed for excisional, open cisneros hemorrhoidectomy as follows. This was in the left lateral aspect of the anorectum. A planned incision was made and a single quadrant hemorrhoidectomy was performed incising the perianal skin sharply with a 10-blade and taking this dissection through down to the anal canal to include all the hemorrhoidal tissue using sharp dissection with Metzenbaum scissors. The sphincteric complex was noted and protected throughout the entirety of this dissection. The pedicle was narrowed at the level of the dentate line and was clamped and excised, and sent for permanent pathology and this was tied using 2-0 Vicryl ties and hemostasis was achieved. Pedicle was thereafter again ligated with #2-0 vicryl stitch that was again tied at apex for hemostasis. Wound was again checked for hemostasis. The perianal skin was closed. The patient was similarly noted for redundant rectal tissue in addition to her stork hemorrhoids and was felt appropriate for multiple internal hemorrhoidal arterial ligation as well as proctoplasty. We placed ligature sutures at the 1:00 3:00 5:00 7:00 9:00 and 11:00 positions with 2-0 Vicryl and, as a consequence, internal hemorrhoidal arteries were sequentially and successfully ligated circumferentially. Specifically, where there was significant prolapse of tissue notably, these areas, were performed for proctoplasty from the level of the sbvjer-bd-uiced ligation down to 2 cm proximal to dentate line, incorporating prolapsing tissue, which ultimately when tied to the anchoring stitch resulted in excellent mucopexy, and consequential reduction of prolapsed tissue circumferentially. With this portion of the procedure completed and good mucopexy achieved, we proceeded with rigid proctosigmoidoscopy as listed below. 2 areas of perianal skin tag potentially concerning for condylomatous change was also performed for excision left and right lateral, performed sharply. Hemostasis was checked and achieved with suture ligation and electrocautery. Attending Physician Attestation Physical Presence Documentation I was physically present during the service to the patient and/or personally examined the patient, and I was directly involved in the management of the care provided to the patient. Procedure note: Preoperative diagnosis: Redundant rectum that is post proctoplasty Postoperative diagnosis: Same; no stenosis able to evaluate proctoscopic Tony to 12 cm without complication. Procedure: Flexible proctosigmoidoscopy Surgeon: Edin Christopher Angelos M.D. Indication: Evaluate postprocedural anal and rectal caliber following proctoplasty. Consent was obtained from the patient. Verification of patient identification and procedure was performed. Timeout was called and agreed to by all in the room. Procedure detail: Patient was placed in the left lateral decubitus position on the examination table. Inspection and digital rectal exam were performed, followed by insertion of the lubricated proctosigmoidoscope. The scope was advanced under direct vision with air insufflation. The lumen and mucosa was then examined carefully. The quality of bowel prep was good. The proctosigmoidoscope was then withdrawn. Findings: Widely patent without complication and good reduction of prolapsed tissue. Conclusions: The patient tolerated procedure well and was informed regarding the above listed findings. With the multiple internal hemorrhoidal arterial ligations completed with hemostasis achieved, two sheets of Surgicel wrapped about Gelfoam were placed in the anal canal. The patient tolerated the procedure well for which there was no complication. All counts for sponges, needles, and instruments were correct at the conclusion of this operative case. The patient's wound was dressed with dry sterile gauze and mesh panties and thereafter, the patient was taken to the postanesthesia care unit in stable condition, extubated. I was present for the entirety of this operative case.
--- NOTE | 2020-12-20 16:06 | ANESTHESIA POST OP EVALUATION ---
Anesthesia Post Eval - Post Anesthesia Eval Vitals: Last Vital Signs Temp 36.7 C 12/20/20 16:00 Pulse 75 12/20/20 16:00 Resp 13 12/20/20 16:00 BP 132/72 H 12/20/20 16:00 Pulse Ox 98 12/20/20 16:00 CV Function Including HR & BP: Stable Pain Control: Satisfactory Nausea & Vomiting: Negative Mental Status: Baseline Respiratory Status: Airway Patent Hydration Status: Satisfactory Anesthesia Complications: None
[2020-12-20] MEDS ORDERED: oxyCODONE 5 MG TABLET ONE (16:14)
[2020-12-20 17:09] VITALS: BP 148/87
--- NOTE | 2020-12-20 17:46 | PHARMACY PROGRESS NOTE ---
- Best Possible Medication History Admit Date and Time: Processed by: Nursing Medication History completed: Yes Patient Interview: Completed Secondary Source(s): Physician records, Pharmacy records, Insurance records (MED REC COMPLETED BY NURSING ) As the person ultimately responsible for medication therapy, providers are able to order a medication from an existing home medication list in [facility] via the "Reconcile Routine" prior to Confirmation of that medication by manager client support. Such practice is discouraged except when the physician, in their clinical judgment, deems that a medical need exists for a medication without regard to previous use.
== END 2020-12-20 18:11 | disposition home or self-care (01) ==
LOC: SDS 11:05 → MS2 17:27 → SDS 18:11
PROVIDERS: ATTEND Surgery
PROC: 06LY0CC Occlusion of Hemorrhoidal Plexus with Extraluminal Device, Open Approach (ICD-10-PCS; principal; 2020-12-20 13:00)
DX: K64.2 Third degree hemorrhoids (principal); N81.6 Rectocele; K64.4 Residual hemorrhoidal skin tags; I10 Essential (primary) hypertension; I49.9 Cardiac arrhythmia, unspecified; G40.909 Epilepsy, unspecified, not intractable, without status epilepticus; M19.90 Unspecified osteoarthritis, unspecified site; F17.210 Nicotine dependence, cigarettes, uncomplicated; F10.10 Alcohol abuse, uncomplicated; F40.240 Claustrophobia; F41.0 Panic disorder [episodic paroxysmal anxiety]; F32.9 Major depressive disorder, single episode, unspecified; F41.9 Anxiety disorder, unspecified; R26.2 Difficulty in walking, not elsewhere classified; Z79.899 Other long term (current) drug therapy
CPT/HCPCS: 46255; 46945; 88304; A9270; J7120

== ENCOUNTER 2021-01-21 08:00 | Outpatient (CLI) | payer MEDICAID ==
[2021-01-21 18:09] LABS: BASOPHILS # (AUTO) 0.1 10^3/uL (0.0-0.1); BASOPHILS % (AUTO) 1.2 %; EOSINOPHILS # (AUTO) 0.9 10^3/uL (0.0-0.7); EOSINOPHILS % (AUTO) 8.1 %; HGB - HEMOGLOBIN 14.8 g/dL (12.0-16.0); LYMPHOCYTES # (AUTO) 3.1 10^3/uL (1.5-3.5); LYMPHOCYTES % (AUTO) 28.2 %; MEAN CORPUSCULAR HEMOGLOBIN 34.1 pg (27.0-31.0); MEAN CORPUSCULAR HGB CONC 33.6 g/dL (32.0-36.0); MEAN CORPUSCULAR VOLUME 101.4 fL (81.0-99.0); MEAN PLATELET VOLUME 9.9 fL (7.9-10.8); MONOCYTES % (AUTO) 9.5 %; NEUTROPHILS # (AUTO) 5.7 10^3/uL (1.5-6.6); NEUTROPHILS % (AUTO) 52.7 %; PLT - PLATELET COUNT 454 10^3/uL (130-450); RED BLOOD COUNT 4.34 10^6/uL (4.20-5.40); RED CELL DISTRIBUTION WIDTH 13.1 % (12.0-15.0); WHITE BLOOD COUNT 10.8 x10^3/uL (4.8-10.8)
== END 2021-01-21 23:59 | disposition home or self-care (01) ==
LOC: LAB.WCP 08:00
PROVIDERS: ATTEND Nurse Practitioner Family
DX: E55.9 Vitamin D deficiency, unspecified (principal)
CPT/HCPCS: 36415; 82306; 82652; 85025

== ENCOUNTER 2021-03-15 13:09 | Outpatient (CLI) | payer MEDICAID | END 2021-03-15 13:10 | disposition home or self-care (01) | LOC: LAB 13:09 | PROVIDERS: ATTEND Surgery | DX: R19.7 Diarrhea, unspecified (principal) | CPT/HCPCS: 81599; 83630; 83993; 87045; 87177; 87209; 87427; 87449; 87493 ==

== ENCOUNTER 2021-07-22 08:00 | Outpatient (CLI) | payer MEDICAID ==
[2021-07-22 14:37] LABS: MUDS CUTOFF CONCENTRATIONS CUTOFF CONC BELOW:
[2021-07-22 18:22] LABS: BILIRUBIN,URINE NEGATIVE (NEGATIVE); GLUCOSE, URINE (UA) NEGATIVE (NEGATIVE); KETONES,URINE (UA) NEGATIVE (NEGATIVE); LEUKOCYTE ESTERASE, URINE NEGATIVE (NEGATIVE); NITRITE,URINE NEGATIVE (NEGATIVE); OCCULT BLOOD,URINE NEGATIVE (NEGATIVE); PH,URINE 7.5 PH (5.0-7.5); PROTEIN,URINE NEGATIVE (NEGATIVE); UROBILINOGEN,URINE 0.2 (NORMAL) E.U./dL (NORMAL)
[2021-07-22 18:25] LABS: CLARITY,URINE CLEAR (CLEAR)
[2021-07-22 18:36] LABS: BASOPHILS # (AUTO) 0.1 10^3/uL (0.0-0.1); BASOPHILS % (AUTO) 1.6 %; EOSINOPHILS # (AUTO) 0.5 10^3/uL (0.0-0.7); HGB - HEMOGLOBIN 14.6 g/dL (12.0-16.0); LYMPHOCYTES # (AUTO) 2.3 10^3/uL (1.5-3.5); LYMPHOCYTES % (AUTO) 28.5 %; MEAN CORPUSCULAR HEMOGLOBIN 31.8 pg (27.0-31.0); MEAN CORPUSCULAR HGB CONC 32.4 g/dL (32.0-36.0); MEAN PLATELET VOLUME 10.7 fL (7.9-10.8); MONOCYTES # (AUTO) 0.9 10^3/uL (0.0-1.0); MONOCYTES % (AUTO) 10.4 %; NEUTROPHILS # (AUTO) 4.4 10^3/uL (1.5-6.6); NEUTROPHILS % (AUTO) 53.4 %; PLT - PLATELET COUNT 479 10^3/uL (130-450); RED BLOOD COUNT 4.59 10^6/uL (4.20-5.40); RED CELL DISTRIBUTION WIDTH 11.6 % (12.0-15.0); WHITE BLOOD COUNT 8.2 x10^3/uL (4.8-10.8)
[2021-07-22 18:38] LABS: ALBUMIN/GLOBULIN RATIO 1.3 (1.0-2.2); ALKALINE PHOSPHATASE 111 IU/L (42-121); ALT ALANINE AMINOTRANSFERASE 23 IU/L (10-60); AST ASPARTATE AMINOTRANSFERASE 26 IU/L (10-42); BILIRUBIN,TOTAL 0.6 mg/dL (0.2-1.0); BUN - BLOOD UREA NITROGEN 10 mg/dL (6-20); CALCIUM 9.3 mg/dL (8.5-10.3); CARBON DIOXIDE - CO2 28 mmol/L (21-32); CHLORIDE 101 mmol/L (101-111); CHOL/HDL RATIO 4.1 (<4.4); CHOLESTEROL 235 mg/dL; CREATININE 0.8 mg/dL (0.4-1.0); GFR - MDRD 73 (>89); GLUCOSE 95 mg/dL (70-100); HDL CHOLESTEROL 57 mg/dL; LDL CHOLESTEROL,CALCULATED 164 mg/dL; LDL/HDL RATIO 2.9 (<4.4); SODIUM 140 mmol/L (135-145); TOTAL PROTEIN 7.2 g/dL (6.7-8.2); TRIGLYCERIDES 70 mg/dL; VLDL CHOLESTEROL 14 mg/dL
[2021-07-22 18:39] LABS: AMPHETAMINE SCREEN,URINE NEGATIVE (NEGATIVE); BARBITURATE SCREEN,UR NEGATIVE (NEGATIVE); BENZODIAZEPINES SCREEN, URINE NEGATIVE (NEGATIVE); COCAINE SCREEN URINE NEGATIVE (NEGATIVE); METHADONE SCREEN, URINE NEGATIVE (NEGATIVE); METHAMPHETAMINES SCREEN, URINE NEGATIVE (NEGATIVE); OPIATE SCREEN, URINE NEGATIVE (NEGATIVE); OXYCODONE SCREEN, URINE NEGATIVE (NEGATIVE); PROPOXYPHENE SCREEN, URINE NEGATIVE (NEGATIVE); THC CANNABINOID SCREEN, URINE NEGATIVE (NEGATIVE); TRICYCLIC ANTIDEPRESSANT,URINE NEGATIVE (NEGATIVE)
[2021-07-22 18:57] LABS: BACTERIA,URINE None Seen /HPF (None Seen); RBC,URINE None Seen /HPF (0-5); SQUAMOUS EPITHELIAL CELL,UR NONE SEEN (<= Few); WBC,URINE 0-3 /HPF (0-5)
== END 2021-07-22 23:59 | disposition home or self-care (01) ==
LOC: LAB.WCP 08:00
PROVIDERS: ATTEND Family Medicine
DX: I10 Essential (primary) hypertension (principal); E78.5 Hyperlipidemia, unspecified; R60.9 Edema, unspecified
CPT/HCPCS: 36415; 80053; 80061; 80306; 81001; 83721; 85025

== ENCOUNTER 2021-08-09 19:58 | Emergency (ER) | payer OTHER, MEDICAID ==
[2021-08-09 20:03] VITALS: BP 168/90
--- NOTE | 2021-08-09 20:14 | ED Physician Documentation ---
PD HPI LOWER EXT INJURY - Stated complaint Stated Complaint: LT KNEE INJURY - Chief complaint Chief Complaint: Trauma Ext - History obtained from History obtained from: Patient - Additional information Additional information: 2 days ago at work she was carrying a large tray in accidentally hit the refrigerator with the tray and then fell directly onto her anterior left knee with moderate to severe pain there. No other injuries. Declines pain medication on initial evaluation. 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 HEENT: Chronic vision loss Psych: Depression, Anxiety Musculoskeletal: Osteoarthritis Derm: None - Past Surgical History Past Surgical History: Yes General: Colonoscopy Ortho: Arthroscopic surgery, Other /RAILWAY TRACK PLANT OPERATOR: 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 - Present Medications Home Medications: Ambulatory Orders Medication Instructions Recorded Confirmed DULoxetine [Cymbalta] 90 mg PO DAILY 10/22/17 08/09/21 Gabapentin 1,200 mg PO QPM 10/22/17 08/09/21 lamoTRIgine [Lamictal] 150 mg PO DAILY 10/22/17 08/09/21 Acetaminophen/Diphenhydramine 3 each PO QPM 08/29/20 08/09/21 [Acetaminophen-Diphenhyd 500-25] traZODone [Desyrel] 50 mg PO HS 08/29/20 08/09/21 - Allergies Allergies/Adverse Reactions: Allergies Allergy/AdvReac Type Severity Reaction Status Date / Time Sulfa (Sulfonamide Allergy Rash Verified 08/09/21 20:03 Antibiotics) codeine AdvReac Emesis Verified 08/09/21 20:03 - Social History Does the pt smoke?: Yes Smoking Status: Current every day smoker (1 pack per day for 30 years) Does the pt drink ETOH?: Yes Does the pt have substance abuse?: No - Immunizations Immunizations are current?: Yes - POLST Patient has POLST: No PD ED PE NORMAL - Vitals Vital signs reviewed: Yes - General General: Alert and oriented X 3, No acute distress - HEENT HEENT: PERRL, EOMI - Extremities Extremities: Other (There is a small abrasion inferior to the kneecap, the patella itself is nontender. No specific joint tenderness nor effusion. She does have pain with palpation above the medial side of the joint of the left knee. Ligamentous testing is intact, negative grind testing.) - Neuro Neuro: Alert and oriented X 3, Normal speech - Psych Psych: Normal mood, Normal affect Results - Vitals Vitals: Vital Signs - 24 hr 08/09/21 20:01 Temperature 36.0 C L Heart Rate 98 Respiratory 16 Rate Blood Pressure 168/90 H O2 Saturation 100 Oxygen O2 Source Room air - Rads (name of study) L knee XR id NAD Radiology: EMP read contemporaneously Departure - Departure Disposition: 01 Home, Self Care Clinical Impression: Contusion of left knee Qualifiers: Encounter type: initial encounter Qualified Code(s): S80.02XA - Contusion of left knee, initial encounter Condition: Good Record reviewed to determine appropriate education?: Yes Instructions: ED Sprain Knee Comments: Tylenol and/or ibuprofen as needed for pain. Return for new or worsening symptoms. Follow-up with your doctor in a week if not better.
--- NOTE | 2021-08-09 20:41 | XRAY Report ---
PROCEDURE: Knee 4 View LT INDICATIONS: Knee injury TECHNIQUE: 3 views of the left knee(s) were acquired. COMPARISON: None. FINDINGS: Bones: No fractures or dislocations. No suspicious bony lesions. Patellofemoral joint space narrow ing with marginal osteophytosis. Medial femorotibial compartment joint space narrowing also with oste ophytosis. Soft tissues: No joint effusion. No suspicious soft tissue calcifications. IMPRESSION: No acute finding. Reviewed by: Tushar Smith MD on 08/09/2021 8:40 PM PST Approved by: Tushar Smith MD on 08/09/2021 8:40 PM PST Station ID: [id number]
== END 2021-08-09 20:56 | disposition home or self-care (01) ==
LOC: ED 19:58
DX: S80.02XA Contusion of left knee, initial encounter (principal); W18.39XA Other fall on same level, initial encounter; W22.8XXA Striking against or struck by other objects, initial encounter; Y99.0 Civilian activity done for income or pay; I10 Essential (primary) hypertension; F17.200 Nicotine dependence, unspecified, uncomplicated
CPT/HCPCS: 1040M; 73564; 99282; 99283

== ENCOUNTER 2022-03-24 09:35 | Outpatient (CLI) | payer MEDICAID ==
--- NOTE | 2022-03-25 08:47 | Mammography Report ---
BILATERAL DIGITAL SCREENING MAMMOGRAM 3D/2D: 03/24/2022 CLINICAL: Routine screening. Comparison is made to exams dated: 09/29/2019 mammogram - [facility], 07/14/2018 ma mmogram - [facility], 06/29/2017 mammogram, 06/25/2016 mammogram, and 06/07/2015 mammogram - [facility]. There are scattered fibroglandular elements in both breasts. No significant masses, calcifications, or other findings are seen in either breast. There has been no significant interval change. IMPRESSION: NEGATIVE There is no mammographic evidence of malignancy. A 1 year screening mammogram is recommended. Based on the Tyrer Cuzick model (a risk assessment model) the patients lifetime risk is 12.0% and he r 10 year risk is 5.1%. According to the ACR, ACS, and NCCN guidelines, an annual breast MRI exam radha ng with mammogram is recommended if the patients lifetime risk is 20% or greater. This exam was interpreted at Station ID: [id number]. NOTE: For mammograms, a report in lay terms will be sent to the patient. Approximately 15% of breast malignancies will not be visualized mammographically. In the management of a palpable breast mass, a negative mammogram must not discourage biopsy of a clinically suspicious lesion. Electronically Signed By: Donavon sams/kate:03/24/2022 10:07:08 ACR BI-RADS Category 1: Negative 3341F PARENCHYMAL PATTERN: (A) - The breast(s) demonstrate(s) scattered fibroglandular densities. BI-RADS CATEGORY: (1) - 1 RECOMMENDATION: (ANNUAL) - Recommend routine annual screening mammography. [id number] 1 year screening LATERALITY: (B)
== END 2022-03-24 09:36 | disposition home or self-care (01) ==
LOC: DI.N 09:35
DX: Z12.31 Encounter for screening mammogram for malignant neoplasm of breast (principal)

== ENCOUNTER 2022-06-10 09:23 | Emergency (ER) | payer MEDICAID ==
[2022-06-10] MEDS ORDERED: LORazepam 2 MG/ML VIAL IVP STA (09:44)
--- NOTE | 2022-06-10 09:45 | ED Physician Documentation ---
PD HPI FOCAL NEURO - Stated complaint Stated Complaint: SHAKING/DIZZINESS - Chief complaint Chief Complaint: Neuro - History obtained from History obtained from: Patient - Additional information Additional information: 62-year-old woman with history of tobacco abuse, hypertension, and hyperlipidemia awoke at 430 this morning with a sensation of "internal shivering" feeling cold and having vertigo. She has a history of vertigo, but this is much different, more severe and not associated with position changes. She also feels off balance which is not normal for her previous vertigo. She went to bed feeling fine and her normal routine last night. There is no associated headache. She feels like her voice is quivering. Review of Systems Ten Systems: 10 systems reviewed and negative Constitutional: reports: Chills. 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 : None HEENT: Chronic vision loss Psych: Depression, Anxiety Musculoskeletal: Osteoarthritis Derm: None - Past Surgical History Past Surgical History: Yes General: Colonoscopy Ortho: Arthroscopic surgery, Other /DISABILITIES CAREGIVER: 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 - Present Medications Home Medications: Ambulatory Orders Medication Instructions Recorded Confirmed DULoxetine [Cymbalta] 90 mg PO DAILY 10/22/17 06/10/22 Gabapentin 1,200 mg PO QPM 10/22/17 06/10/22 lamoTRIgine [Lamictal] 150 mg PO DAILY 10/22/17 06/10/22 Acetaminophen/Diphenhydramine 3 each PO QPM 08/29/20 08/09/21 [Acetaminophen-Diphenhyd 500-25] traZODone [Desyrel] 50 mg PO HS 08/29/20 06/10/22 - Allergies Allergies/Adverse Reactions: Allergies Allergy/AdvReac Type Severity Reaction Status Date / Time Sulfa (Sulfonamide Allergy Rash Verified 06/10/22 09:33 Antibiotics) codeine AdvReac Emesis Verified 06/10/22 09:33 - Social History Does the pt smoke?: Yes Smoking Status: Current every day smoker (1 pack per day for 30 years) Does the pt drink ETOH?: Yes Does the pt have substance abuse?: No - Immunizations Immunizations are current?: Yes - POLST Patient has POLST: No PD ED PE NORMAL - Vitals Vital signs reviewed: Yes - General General: Alert and oriented X 3, No acute distress, Other (Tremulous, diffuse) - HEENT HEENT: PERRL, EOMI, Other (Very mild left ptosis) - Neck Neck: Supple, no meningeal sign, No bony TTP - Cardiac Cardiac: RRR, No murmur - Respiratory Respiratory: No respiratory distress, Clear bilaterally - Abdomen Abdomen: Non tender - Back Back: No CVA TTP, No spinal TTP - Derm Derm: Normal color, Warm and dry - Extremities Extremities: No edema, No calf tenderness / cord - Neuro Neuro: Alert and oriented X 3, Normal speech NIHSS - Time Time: 09:40 - Level of Consciousness Level of consciousness: (0) Alert, Keenly responsive LOC Questions: (0) Answers both Q's correct LOC Commands: (0) Performs both correctly - Gaze Best Gaze: (0) Normal - Visual Visual: (0) No loss - Facial Palsy Facial Palsy: (0) Normal, symmetrical movement - Motor Arms (both separate) Motor Arm (right): (0) No drift Motor Arm (left): (0) No drift - Motor Legs (both separate) Motor Leg (right): (0) No drift Motor Leg (left): (0) No drift - Limb Ataxia Limb Ataxia: (0) Absent (Tremulous with finger-nose testing bilaterally but no ataxia per se.) - Sensory Sensory: (0) Normal - Best Language Best Language: (0) No aphasia - Dysarthria Dysarthria: (0) Normal - Extinction and Inattention (formally neg Extinction and inattention: (0) No abnormality - Total Score/Results Total Score/Result: 0 Results - Vitals Vitals: Vital Signs - 24 hr 06/10/22 06/10/22 09:29 10:19 Temperature 36.7 C Heart Rate 110 H 88 Respiratory 20 18 Rate Blood Pressure 136/85 H 150/89 H O2 Saturation 99 95 Oxygen O2 Source Room air - Labs Labs: Laboratory Tests 06/10/22 06/10/22 09:49 09:49 WBC 10.3 RBC 4.76 Hgb 16.0 Hct 45.8 MCV 96.2 MCH 33.6 H MCHC 34.9 RDW 12.6 Plt Count 278 MPV 8.9 Neut # (Auto) 6.9 H Lymph # (Auto) 2.3 Starke # (Auto) 0.7 Eos # (Auto) 0.2 Baso # (Auto) 0.1 Absolute Nucleated RBC 0.00 Nucleated RBC % 0.0 Sodium 134 L Potassium 3.9 Chloride 97 L Carbon Dioxide 25 Anion Gap 12.0 BUN 7 Creatinine 0.8 Estimated GFR (MDRD) 73 L Glucose 103 H Calcium 9.5 Ethyl Alcohol < 5.0 PD MEDICAL DECISION MAKING - ED course ED course: 62-year-old woman presents with shaking, bilateral of unclear etiology with nonspecific disequilibrium. After the administration of lorazepam her symptoms were much better albeit not quite resolved. MRI of the brain was done and was normal with the exception of a pineal cyst which was discussed with her and follow-up advised. Departure - Departure Disposition: 01 Home, Self Care Clinical Impression: Dysequilibrium, Pineal gland cyst Condition: Good Record reviewed to determine appropriate education?: Yes Instructions: ED Vertigo Unspecified Comments: The cause of your symptoms is not clear. Blood work and MRI are normal with the exception of a pineal cyst which is likely a benign phenomenon, but recommend a repeat MRI in approximately 6 months to document stability. Call your doctor to arrange a follow-up appointment, make the next available appointment. In the interim, return anytime if worse or if new symptoms develop.
[2022-06-10 09:57] LABS: BASOPHILS # (AUTO) 0.1 10^3/uL (0.0-0.1); BASOPHILS % (AUTO) 0.8 %; EOSINOPHILS # (AUTO) 0.2 10^3/uL (0.0-0.7); EOSINOPHILS % (AUTO) 1.9 %; HCT - HEMATOCRIT 45.8 % (37.0-47.0); LYMPHOCYTES # (AUTO) 2.3 10^3/uL (1.5-3.5); LYMPHOCYTES % (AUTO) 22.4 %; MEAN CORPUSCULAR HEMOGLOBIN 33.6 pg (27.0-31.0); MEAN CORPUSCULAR HGB CONC 34.9 g/dL (32.0-36.0); MEAN CORPUSCULAR VOLUME 96.2 fL (81.0-99.0); MEAN PLATELET VOLUME 8.9 fL (7.9-10.8); MONOCYTES # (AUTO) 0.7 10^3/uL (0.0-1.0); NEUTROPHILS # (AUTO) 6.9 10^3/uL (1.5-6.6); NEUTROPHILS % (AUTO) 67.6 %; PLT - PLATELET COUNT 278 10^3/uL (130-450); RED BLOOD COUNT 4.76 10^6/uL (4.20-5.40); RED CELL DISTRIBUTION WIDTH 12.6 % (12.0-15.0); WHITE BLOOD COUNT 10.3 x10^3/uL (4.8-10.8)
[2022-06-10 10:07] LABS: BUN - BLOOD UREA NITROGEN 7 mg/dL (6-20); CALCIUM 9.5 mg/dL (8.5-10.3); CARBON DIOXIDE - CO2 25 mmol/L (21-32); CHLORIDE 97 mmol/L (101-111); CREATININE 0.8 mg/dL (0.4-1.0); ETOH - ETHANOL < 5.0 mg/dL; GFR - MDRD 73 (>89); GLUCOSE 103 mg/dL (70-100); POTASSIUM 3.9 mmol/L (3.5-5.0); SODIUM 134 mmol/L (135-145)
--- NOTE | 2022-06-10 12:03 | MRI Report ---
PROCEDURE: Brain W/O INDICATIONS: vertigo, L ptosis TECHNIQUE: Noncontrast axial T1 spin echo, axial T2 fast spin echo, sagittal and axial FLAIR, coronal T2 fast sp in echo, axial gradient echo, axial diffusion and ADC through the brain. COMPARISON: None. FINDINGS: There is an approximately 1 cm cystic lesion in the pineal which appears to be a pineal cyst, less li elvis a cystic mass. Partially empty sella. Midline structures are otherwise normal in configuration. No unexpected intracranial susceptibility. No restricted diffusion to indicate recent ischemia. The m ajor intracranial vascular flow-related signal voids are maintained. No abnormal intra-axial fluid co llection, mass effect, or midline shift. Mild global cerebral volume loss. Mild chronic microvascular ischemic changes. No gross orbital abnormality. Paranasal sinuses and mastoid air cells predominantl y clear. IMPRESSION: Approximately 1 cm pineal lesion which likely represents a cyst. Follow-up contrast enhanced MRI of b rain recommended in 3-6 months to further evaluate and document stability. Reviewed by: Tushar Smith MD on 06/10/2022 12:02 PM PDT Approved by: Tushar Smith MD on 06/10/2022 12:02 PM PDT Station ID: [id number]
[2022-06-10 12:36] VITALS: BP 143/93
== END 2022-06-10 12:36 | disposition home or self-care (01) ==
LOC: ED 09:23
DX: R42 Dizziness and giddiness (principal); R25.1 Tremor, unspecified; R11.0 Nausea; G93.0 Cerebral cysts; H02.402 Unspecified ptosis of left eyelid; I10 Essential (primary) hypertension; E78.5 Hyperlipidemia, unspecified; F17.210 Nicotine dependence, cigarettes, uncomplicated
CPT/HCPCS: 36415; 70551; 80048; 80320; 85025; 96374; 99282; 99284; J2060

== ENCOUNTER 2022-06-18 16:15 | Emergency (ER) | payer MEDICAID ==
[2022-06-18 16:21] VITALS: BP 165/92
--- NOTE | 2022-06-18 16:55 | XRAY Report ---
PROCEDURE: Wrist 4 View RT INDICATIONS: Trauma TECHNIQUE: 4 views of the wrist were acquired. COMPARISON: Right wrist Radiographs 12/11/2018. FINDINGS: Bones: No definite acute fractures or dislocations. Mild cortical irregularity at the distal articul ar surface of the radius near the proximal pole of scaphoid appears similar to prior radiographs, cou ld represent sequela of remote trauma. No suspicious bony lesions. Severe first CMC joint DJD. Scaphoid view: No acute fracture identified. Soft tissues: No suspicious soft tissue calcifications. IMPRESSION: No acute osseous abnormality identified. If symptoms persist, follow-up radiographs and/or CT may be helpful for further evaluation. Reviewed by: Matthew Martinez MD on 06/18/2022 4:54 PM PDT Approved by: Matthew Martinez MD on 06/18/2022 4:54 PM PDT Station ID: [id number]
--- NOTE | 2022-06-18 17:06 | ED Physician Documentation ---
PD HPI UPPER EXT INJURY - Stated complaint Stated Complaint: R ARM PX/FALL - Chief complaint Chief Complaint: Trauma Ext - History obtained from History obtained from: Patient - History of Present Illness Location: Right, Wrist Type of injury: Fall (tripped and fell 2 days ago, landing onto right wrist. Pain at ulnar aspect of wrist with ROM. Gripping does not hurt as much.) Timing - onset: How many days ago (2) Timing - duration: Days (2) Timing - details: Abrupt onset, Still present Worsened by: Moving (flex/extend at wrist.), Palpating Associated symptoms: Swelling. 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 HEENT: Chronic vision loss Psych: Depression, Anxiety Musculoskeletal: Osteoarthritis Derm: None - Past Surgical History Past Surgical History: Yes General: Colonoscopy Ortho: Arthroscopic surgery, Other /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 CAPTAIN: 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 - Present Medications Home Medications: Ambulatory Orders Medication Instructions Recorded Confirmed DULoxetine [Cymbalta] 90 mg PO DAILY 10/22/17 06/10/22 Gabapentin 1,200 mg PO QPM 10/22/17 06/10/22 lamoTRIgine [Lamictal] 150 mg PO DAILY 10/22/17 06/10/22 Acetaminophen/Diphenhydramine 3 each PO QPM 08/29/20 12 [Acetaminophen-Diphenhyd 500-25] traZODone [Desyrel] 50 mg PO HS 08/29/20 06/10/22 - Allergies Allergies/Adverse Reactions: Allergies Allergy/AdvReac Type Severity Reaction Status Date / Time Sulfa (Sulfonamide Allergy Rash Verified 06/18/22 16:21 Antibiotics) codeine AdvReac Emesis Verified 06/18/22 16:21 - Social History Does the pt smoke?: Yes Smoking Status: Current every day smoker (1 pack per day for 30 years) Does the pt drink ETOH?: Yes Does the pt have substance abuse?: No - Immunizations Immunizations are current?: Yes - POLST Patient has POLST: No PD ED PE NORMAL - Vitals Vital signs reviewed: Yes - General General: Alert and oriented X 3, No acute distress, Well developed/nourished - Derm Derm: Normal color, Warm and dry - Extremities Extremities: Other (right wrist with tenderness ulnar dorsal aspect without obvious deformity. Mild swelling. Normal color and cap refill in fingers. ) - Neuro Neuro: Alert and oriented X 3, No motor deficit, No sensory deficit Results - Vitals Vitals: Vital Signs - 24 hr 06/18/22 16:19 Temperature 36.4 C L Heart Rate 88 Respiratory 16 Rate Blood Pressure 165/92 H O2 Saturation 97 Oxygen O2 Source Room air - Rads (name of study) right wrist Radiology: Prelim report reviewed (no fractures. ), See rad report Procedures - Splint (location) right wrist Splint applied by: Tech Type of splint: Prefab velcro wrist Other: Patient tolerated well, No complications, Neurovascular intact PD MEDICAL DECISION MAKING - ED course Complexity details: considered differential, d/w patient Departure - Departure Disposition: 01 Home, Self Care Clinical Impression: Right wrist sprain Qualifiers: Encounter type: initial encounter Qualified Code(s): S63.501A - Unspecified sp rain of right wrist, initial encounter Fall from slip, trip, or stumble Qualifiers: Encounter type: initial encounter Qualified Code(s): W01.0XXA - Fall on same level from slipping, tripping and stumbling without subsequent striking against object, initial encounter Condition: Stable Record reviewed to determine appropriate education?: Yes Instructions: ED Sprain Wrist Comments: There are not any fractures on x-ray. Presume a wrist sprain and bruising given the tenderness and pain with motion. I would anticipate this to improve over the next several days to week or so. Use the wrist splint to help protect motion and support the wrist for the next week or 2 as needed until improved. Anti-inflammatory such as ibuprofen 400 mg 3 times daily may be helpful. This will help for pain and inflammation. Add Tylenol every 4-6 hours if needed. Recheck if not improved well over the next week or so. Discharge Date/Time: 06/18/22 17:46
[2022-06-18] MEDS ORDERED: IBUPROFEN 600 MG TABLET PO STA (17:17)
[2022-06-18] MEDS ORDERED: ACETAMINOPHEN 325 MG TABLET PO STA (17:17)
== END 2022-06-18 17:46 | disposition home or self-care (01) ==
LOC: ED 16:15
DX: S63.501A Unspecified sprain of right wrist, initial encounter (principal); W01.0XXA Fall on same level from slipping, tripping and stumbling without subsequent striking against object, initial encounter; F17.200 Nicotine dependence, unspecified, uncomplicated
CPT/HCPCS: 73110; 99282; 99283; A9270

== ENCOUNTER 2022-08-20 16:05 | Outpatient (CLI) | payer MEDICAID | END 2022-08-20 16:06 | disposition critical access hospital (66) | LOC: EMS 16:05 | DX: M25.562 Pain in left knee (principal); R20.0 Anesthesia of skin; W01.0XXA Fall on same level from slipping, tripping and stumbling without subsequent striking against object, initial encounter; Y92.512 Supermarket, store or market as the place of occurrence of the external cause | CPT/HCPCS: A0425; A0429; A0999 ==

== ENCOUNTER 2022-08-20 16:09 | Emergency (ER) | payer OTHER, MEDICAID ==
[2022-08-20 16:25] VITALS: BP 168/93
--- NOTE | 2022-08-20 16:54 | XRAY Report ---
PROCEDURE: Knee 4 View LT INDICATIONS: Trauma TECHNIQUE: 4 views of the left knee(s) were acquired. COMPARISON: None. FINDINGS: Bones: Patellar fracture with mild distraction. No dislocation. Joint space narrowing most pronounc ed in the medial compartment. Tricompartmental osteophytes. Small cyst with focal sclerosis in the di stal femur. Soft tissues: Large joint effusion. No suspicious soft tissue calcifications. IMPRESSION: Patellar fracture with mild distraction. Large joint effusion. Small bone cyst in the distal femur. Consider MRI for further evaluation. Reviewed by: Stefano Torres MD on 08/20/2022 4:53 PM RUST Approved by: Stefano Torres MD on 08/20/2022 4:53 PM RUST Station ID: [id number]
[2022-08-20] MEDS ORDERED: MORPHINE 10 MG/ML VIAL IM STA (17:52)
--- NOTE | 2022-08-20 17:55 | ED Physician Documentation ---
PD HPI LOWER EXT INJURY - Stated complaint Stated Complaint: FALL L KNEE PX - Chief complaint Chief Complaint: Trauma Ext - History obtained from History obtained from: Patient (62-year-old woman was at work today and slipped and fell directly onto her left knee. She has severe pain and is not able to walk or bear weight. No other injuries.) Review of Systems Constitutional: reports: Reviewed and negative Cardiac: reports: Reviewed and negative Respiratory: reports: Reviewed and negative PD PAST MEDICAL HISTORY - Past Medical History Cardiovascular: Hypertension, Arrhythmia Respiratory: None Neuro: Other (siezure disorder, last one 4 years ago) Endocrine/Autoimmune: None GI: Ulcers, Other MEDICAL TYPIST: None : None HEENT: Chronic vision loss Psych: Depression, Anxiety Musculoskeletal: Osteoarthritis Derm: None - Past Surgical History Past Surgical History: Yes General: Colonoscopy Ortho: Arthroscopic surgery, Other /MEDICAL TYPIST: 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 - Present Medications Home Medications: Ambulatory Orders Medication Instructions Recorded Confirmed DULoxetine [Cymbalta] 90 mg PO DAILY 10/22/17 06/10/22 Gabapentin 1,200 mg PO QPM 10/22/17 06/10/22 lamoTRIgine [Lamictal] 150 mg PO DAILY 10/22/17 06/10/22 Acetaminophen/Diphenhydramine 3 each PO QPM 08/29/20 08/09/21 [Acetaminophen-Diphenhyd 500-25] traZODone [Desyrel] 50 mg PO HS 08/29/20 06/10/22 Morphine Ir [Ms Ir] 15 mg PO Q6H PRN #20 tablet 08/20/22 - Allergies Allergies/Adverse Reactions: Allergies Allergy/AdvReac Type Severity Reaction Status Date / Time Sulfa (Sulfonamide Allergy Rash Verified 08/20/22 16:26 Antibiotics) codeine AdvReac Emesis Verified 08/20/22 16:26 - Social History Does the pt smoke?: Yes Smoking Status: Current every day smoker (1 pack per day for 30 years) Does the pt drink ETOH?: Yes Does the pt have substance abuse?: No - Immunizations Immunizations are current?: Yes - POLST Patient has POLST: No PD ED PE NORMAL - Vitals Vital signs reviewed: Yes - General General: Alert and oriented X 3, No acute distress - Neck Neck: Supple, no meningeal sign, No bony TTP - Extremities Extremities: Other (Quite tender to the anterior left knee and not able to range it. I am not able to test quadricep function due to pain.) - Neuro Neuro: Alert and oriented X 3, Normal speech Results - Vitals Vitals: Vital Signs - 24 hr 08/20/22 16:22 Temperature 36.4 C L Heart Rate 88 Respiratory 16 Rate Blood Pressure 168/93 H O2 Saturation 97 Oxygen O2 Source Room air - Rads (name of study) 4 view x-ray left knee Radiology: Final report received, EMP read indepedently (Patellar fracture with mild distraction large joint effusion) PD Medical Decision Making - ED course ED course: [id number] completed Placed in a knee immobilizer. Departure - Departure Disposition: Home, Self Care Clinical Impression: Patellar fracture Qualifiers: Encounter type: initial encounter Fracture type: closed Fracture morphology: transverse Fracture alignment: displaced Laterality: left Qualified Code(s): S82.032A - Displaced transverse fracture of left patella, initial encounter for closed fracture Condition: Good Record reviewed to determine appropriate education?: Yes Instructions: ED Dislocation Patella Follow-Up: Orthopedic Care [Provider Group] Prescriptions: Morphine Ir [Ms Ir] 15 mg PO Q6H PRN #20 tablet PRN Reason: Pain Comments: I sent your prescription to [facility] in [place]. You will need to follow-up with an orthopedist, it is significantly possible that you may need surgery on the left patella. In the meantime keep it immobilized and do not walk or bear weight on it, I am putting the name of the local orthopedist on this form and you should call his office tomorrow, that said my understanding is he is going on vacation for a few weeks and you may need to follow-up with different orthopedist such as [facility] in [place] the phone number there is [phone]. I am prescribing a short course of narcotic pain medication for you. These are potentially dangerous and addictive medications that should be used carefully. These medications may constipate you. Take an uxti-fcs-igtzmwq stool softener (docusate) twice daily with plenty of water while taking these medications. If you go 24 hours without a bowel movement, take bzne-fnq-yjxfdke miralax, per package instructions. Do not drink or drive while taking these medications. If you received narcotic or sedating medications while in the emergency department, do not drive for 24 hours. Store this medication in a safe, secure place and out of reach of children. It is a violation of federal law to give or sell this medication to another person or to use in a manner other than prescribed. The ED will not refill narcotic prescriptions, including prescriptions lost or stolen. To dispose of unwanted medications: 1. The [facility] at [address] in [place] has a medication drop box. They accept prescription medications (in pill form) Thursday through Thursday 9:00 a.m. to 5:00 p.m. 2. The [facility] [employer] accepts prescription medications (in pill form only) for disposal year round. Call for more information. 3. Contact the [facility] for the next [facility] sponsored prescription drug collection event. , [phone], or [phone]; Note that many narcotic pain relievers also contain Tylenol/acetaminophen. Please ensure that your total dose of acetaminophen from all sources does not exceed 3 g (3000 mg) per day. Forms: Activity restrictions
== END 2022-08-20 18:57 | disposition home or self-care (01) ==
LOC: EDUNIT# → ED 16:09
DX: S82.002A Unspecified fracture of left patella, initial encounter for closed fracture (principal); W01.0XXA Fall on same level from slipping, tripping and stumbling without subsequent striking against object, initial encounter; Y92.512 Supermarket, store or market as the place of occurrence of the external cause; Y99.0 Civilian activity done for income or pay; F17.200 Nicotine dependence, unspecified, uncomplicated
CPT/HCPCS: 1040M; 73564; 96372; 99283

== ENCOUNTER 2022-09-18 10:36 | Outpatient (CLI) | payer MEDICAID ==
[2022-09-18 12:06] LABS: BASOPHILS # (AUTO) 0.1 10^3/uL (0.0-0.1); BASOPHILS % (AUTO) 0.9 %; EOSINOPHILS # (AUTO) 0.3 10^3/uL (0.0-0.7); EOSINOPHILS % (AUTO) 2.5 %; LYMPHOCYTES # (AUTO) 2.2 10^3/uL (1.5-3.5); LYMPHOCYTES % (AUTO) 20.4 %; MEAN CORPUSCULAR HEMOGLOBIN 33.9 pg (27.0-31.0); MEAN CORPUSCULAR HGB CONC 34.1 g/dL (32.0-36.0); MEAN CORPUSCULAR VOLUME 99.3 fL (81.0-99.0); MEAN PLATELET VOLUME 9.1 fL (7.9-10.8); MONOCYTES # (AUTO) 1.2 10^3/uL (0.0-1.0); MONOCYTES % (AUTO) 10.7 %; NEUTROPHILS % (AUTO) 64.9 %; PLT - PLATELET COUNT 525 10^3/uL (130-450); RED BLOOD COUNT 4.43 10^6/uL (4.20-5.40); RED CELL DISTRIBUTION WIDTH 13.3 % (12.0-15.0); WHITE BLOOD COUNT 10.8 x10^3/uL (4.8-10.8)
[2022-09-18 14:00] LABS: THYROID STIMULATING HORMONE 2.67 uIU/mL (0.34-5.60)
[2022-09-18 14:09] LABS: ALBUMIN 3.8 g/dL (3.2-5.5); ALKALINE PHOSPHATASE 94 IU/L (42-121); ALT ALANINE AMINOTRANSFERASE 17 IU/L (10-60); AST ASPARTATE AMINOTRANSFERASE 23 IU/L (10-42); BILIRUBIN,TOTAL 0.4 mg/dL (0.2-1.0); BUN - BLOOD UREA NITROGEN 7 mg/dL (6-20); CALCIUM 9.3 mg/dL (8.5-10.3); CARBON DIOXIDE - CO2 30 mmol/L (21-32); CHLORIDE 91 mmol/L (101-111); CREATININE 0.6 mg/dL (0.4-1.0); GFR - MDRD 101 (>89); GLUCOSE 112 mg/dL (70-100); POTASSIUM 3.3 mmol/L (3.5-5.0); SODIUM 132 mmol/L (135-145); TOTAL PROTEIN 7.5 g/dL (6.7-8.2)
[2022-09-18 14:10] LABS: CHOL/HDL RATIO 3.2 (<4.4); CHOLESTEROL 224 mg/dL; HDL CHOLESTEROL 71 mg/dL; LDL CHOLESTEROL,CALCULATED 137 mg/dL; LDL/HDL RATIO 1.9 (<4.4); TRIGLYCERIDES 81 mg/dL; VLDL CHOLESTEROL 16 mg/dL
[2022-09-18 14:23] LABS: ESTIMATED AVERAGE GLUCOSE 91 mg/dL (70-100); HEMOGLOBIN A1c% 4.8 % (4.27-6.07)
== END 2022-09-18 10:37 | disposition home or self-care (01) ==
LOC: LAB.N 10:36
PROVIDERS: ATTEND Nurse Practitioner Family
DX: I10 Essential (primary) hypertension (principal); E16.2 Hypoglycemia, unspecified; R07.89 Other chest pain; R63.4 Abnormal weight loss; E78.5 Hyperlipidemia, unspecified
CPT/HCPCS: 36415; 80050; 80061; 83036; 83721

== ENCOUNTER 2022-12-22 18:05 | Outpatient (CLI) | payer MEDICAID | END 2022-12-22 18:06 | disposition critical access hospital (66) | LOC: EMS 18:05 | DX: R06.02 Shortness of breath (principal); R06.4 Hyperventilation; R41.0 Disorientation, unspecified; R45.1 Restlessness and agitation; I10 Essential (primary) hypertension; R46.89 Other symptoms and signs involving appearance and behavior; L98.9 Disorder of the skin and subcutaneous tissue, unspecified | CPT/HCPCS: A0425; A0429; A0999 ==

== ENCOUNTER 2022-12-22 18:17 | Emergency (ER) | payer MEDICAID ==
--- NOTE | 2022-12-22 18:32 | ED Physician Documentation ---
PD HPI HEADACHE - Stated complaint Stated Complaint: HYPERVENTILATING - Chief complaint Chief Complaint: Neuro - History obtained from History obtained from: Patient, EMS - Additional information Additional information: 62-year-old woman presents by ambulance for evaluation of possible altered mental status. Reportedly a friend called the ambulance because she was hyperventilating" wanting a blessing." Brought in by ambulance hypertensive with normal blood sugar. Some episodes of staring off into space but easily responsive. Patient's only complaint is that she feels fearful, but she cannot verbalize what she feels fearful about. That said she is generally a good historian, for example I asked when she last went to work, and she states she last went to work on August 20, she was previously seen then for a patellar fracture. She is been out of work since. She denies chest pain. She does have a headache but that is common for her. PD PAST MEDICAL HISTORY - Past Medical History Cardiovascular: Hypertension, Arrhythmia Respiratory: None Neuro: Other (siezure disorder, last one 4 years ago) Endocrine/Autoimmune: None GI: Ulcers, Other THREAD WEAVER: None : None HEENT: Chronic vision loss Psych: Depression, Anxiety Musculoskeletal: Osteoarthritis Derm: None - Past Surgical History Past Surgical History: Yes General: Colonoscopy Ortho: Arthroscopic surgery, Other /THREAD WEAVER: 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 - Present Medications Home Medications: Ambulatory Orders Medication Instructions Recorded Confirmed DULoxetine [Cymbalta] 90 mg PO DAILY 10/22/17 06/10/22 Gabapentin 1,200 mg PO QPM 10/22/17 06/10/22 lamoTRIgine [Lamictal] 150 mg PO DAILY 10/22/17 06/10/22 Acetaminophen/Diphenhydramine 3 each PO QPM 08/29/20 08/09/21 [Acetaminophen-Diphenhyd 500-25] traZODone [Desyrel] 50 mg PO HS 08/29/20 06/10/22 Morphine Ir [Ms Ir] 15 mg PO Q6H PRN #20 tablet 08/20/22 Oxycodone HCl/Acetaminophen 1 - 2 each PO Q6H PRN #14 tablet 08/20/22 [Percocet 5-325 mg Tablet] Losartan [Cozaar] 50 mg PO DAILY #30 tablet 12/22/22 - Allergies Allergies/Adverse Reactions: Allergies Allergy/AdvReac Type Severity Reaction Status Date / Time Sulfa (Sulfonamide Allergy Rash Verified 12/22/22 18:28 Antibiotics) codeine AdvReac Emesis Verified 12/22/22 18:28 - Social History Does the pt smoke?: Yes Smoking Status: Current every day smoker (1 pack per day for 30 years) Does the pt drink ETOH?: Yes Does the pt have substance abuse?: No - Immunizations Immunizations are current?: Yes - POLST Patient has POLST: No PD ED PE NORMAL - Vitals Vital signs reviewed: Yes - General General: Alert and oriented X 3 (Does not know the date but can come up with the month and the year and seems to be a reasonable historian for recent events. Some episodes where she stares off into space but she is redirectable. Blunted affect.) - HEENT HEENT: PERRL, EOMI - Neck Neck: Supple, no meningeal sign, No bony TTP - Cardiac Cardiac: RRR, No murmur - Respiratory Respiratory: No respiratory distress, Clear bilaterally - Abdomen Abdomen: Non tender - Neuro Neuro: Alert and oriented X 3, bottom steep tender 2-12 intact, No motor deficit, No sensory de ficit, Normal speech, Other (NIH stroke scale done on arrival was 0.) Eye Opening: Spontaneous Motor: Obeys Commands Verbal: Oriented GCS Score: 15 Results - Vitals Vitals: Vital Signs - 24 hr 12/22/22 12/22/22 12/22/22 18:23 19:23 19:40 Temperature 36.9 C Heart Rate 92 94 87 Respiratory 23 13 15 Rate Blood Pressure 179/113 H 197/113 H 172/91 H O2 Saturation 96 94 93 12/22/22 12/22/22 20:24 20:50 Temperature Heart Rate 97 95 Respiratory 14 13 Rate Blood Pressure 157/106 H 165/100 H O2 Saturation 95 96 Oxygen O2 Source Room air - EKG (time done) 1823 EKG releavant findings:: EKG personally interpreted by author of this note. Relevant findings are: Rate: Rate (enter#) (89) Rhythm: NSR, LAE Intervals: Prolonged QT QRS: LVH Ischemia: Normal ST segments - Labs Labs: Laboratory Tests 12/22/22 12/22/22 12/22/22 18:36 18:36 18:36 WBC 10.0 RBC 4.27 Hgb 14.0 Hct 37.8 MCV 88.5 MCH 32.8 H MCHC 37.0 H RDW 12.0 Plt Count 380 MPV 8.3 Neut # (Auto) 7.9 H Lymph # (Auto) 1.1 L Ponce # (Auto) 0.9 Eos # (Auto) 0.1 Baso # (Auto) 0.1 Absolute Nucleated RBC 0.00 Nucleated RBC % 0.0 VBG pH 7.471 H VBG pCO2 30.8 L VBG pO2 85.0 H VBG HCO3 22.0 L VBG Total CO2 22.9 L VBG O2 Saturation 97.0 H VBG Base Excess -0.6 Sodium 115 L* Potassium 3.1 L Chloride 78 L* Carbon Dioxide 22 Anion Gap 15.0 H BUN 8 Creatinine 0.5 Estimated GFR (MDRD) 125 Glucose 160 H Calcium 8.6 Phosphorus Magnesium Urine Opiates Screen Ur Oxycodone Screen Urine Methadone Screen Ur Propoxyphene Screen Ur Barbiturates Screen Ur Tricyclics Screen Ur Phencyclidine Scrn Ur Amphetamine Screen U Methamphetamines Scrn U Benzodiazepines Scrn Urine Cocaine Screen U Cannabinoids Screen Ethyl Alcohol < 5.0 12/22/22 12/22/22 18:36 18:50 WBC RBC Hgb Hct MCV MCH MCHC RDW Plt Count MPV Neut # (Auto) Lymph # (Auto) Ponce # (Auto) Eos # (Auto) Baso # (Auto) Absolute Nucleated RBC Nucleated RBC % VBG pH VBG pCO2 VBG pO2 VBG HCO3 VBG Total CO2 VBG O2 Saturation VBG Base Excess Sodium Potassium Chloride Carbon Dioxide Anion Gap BUN Creatinine Estimated GFR (MDRD) Glucose Calcium Phosphorus 2.8 Magnesium 1.6 L Urine Opiates Screen NEGATIVE Ur Oxycodone Screen NEGATIVE Urine Methadone Screen NEGATIVE Ur Propoxyphene Screen NEGATIVE Ur Barbiturates Screen NEGATIVE Ur Tricyclics Screen NEGATIVE Ur Phencyclidine Scrn NEGATIVE Ur Amphetamine Screen NEGATIVE U Methamphetamines Scrn NEGATIVE U Benzodiazepines Scrn NEGATIVE Urine Cocaine Screen NEGATIVE U Cannabinoids Screen NEGATIVE Ethyl Alcohol - Rads (name of study) CT angiography of the head and neck shows mild narrowing in the carotid bulbs but no otherwise no acute disease. Relevant Findings:: Final report received, EMP independent interpretation of test PD Medical Decision Making - ED course ED course: 62-year-old woman presents with altered mental status and a vague history. CBC reviewed and normal. Venous gas consistent with respiratory alkalosis from hyperventilation. BMP found to be significantly hyponatremic at 115, definitely new from prior. Blood alcohol and urine drug screening was negative. Her outpatient meds were reviewed. She was on losartan/hydrochlorothiazide as well as oxcarbazepine. This may be explaining her hyponatremia which is probably causative for the current situation. She was administered hypertonic saline and then maintenance fluids plus potassium supplementation. The decision to admit to the ICU was made at approximately 7:15 PM on December 22, that said there are no beds in the hospital and she will be boarding in the emergency department pending improvement or admission. I will reorder her home duloxetine and losartan but we will be holding the hydrochlorothiazide and oxcarbazepine. I asked her who had prescribed the oxcarbazepine. She says it was her mental health provider, she cannot come up with her name right now. She says is been quite sometime since she had a seizure or has seen a neurologist. Departure - Departure Disposition: [facility] DC/Xfer Clinical Impression: Hyponatremia Altered mental status Qualifiers: Altered mental status type: delirium Qualified Code(s): R41.0 - Disorientation, unspecified Condition: Critical Prescriptions: Losartan [Cozaar] 50 mg PO DAILY #30 tablet Comments: You should stop your oxcarbazepine and losartan/hydrochlorothiazide. You can restart just losartan which we are prescribing. Call your doctor to arrange a follow-up appointment, make the next available appointment. In the interim, return anytime if worse or if new symptoms develop.
[2022-12-22] MEDS ORDERED: iohexoL-300 100 ML VIAL ONE (18:37)
[2022-12-22 18:46] LABS: VBG PCO2 30.8 mmHg (41-51); VBG PH 7.471 (7.31-7.41)
[2022-12-22 18:47] LABS: BASOPHILS # (AUTO) 0.1 10^3/uL (0.0-0.1); BASOPHILS % (AUTO) 0.5 %; EOSINOPHILS # (AUTO) 0.1 10^3/uL (0.0-0.7); EOSINOPHILS % (AUTO) 1.4 %; HCT - HEMATOCRIT 37.8 % (37.0-47.0); LYMPHOCYTES # (AUTO) 1.1 10^3/uL (1.5-3.5); MEAN CORPUSCULAR HEMOGLOBIN 32.8 pg (27.0-31.0); MEAN CORPUSCULAR VOLUME 88.5 fL (81.0-99.0); MEAN PLATELET VOLUME 8.3 fL (7.9-10.8); MONOCYTES # (AUTO) 0.9 10^3/uL (0.0-1.0); MONOCYTES % (AUTO) 8.6 %; NEUTROPHILS # (AUTO) 7.9 10^3/uL (1.5-6.6); NEUTROPHILS % (AUTO) 78.2 %; PLT - PLATELET COUNT 380 10^3/uL (130-450); RED BLOOD COUNT 4.27 10^6/uL (4.20-5.40); VBG BASE EXCESS -0.6 mmol/L (-2 - +2); VBG TOTAL CO2 22.9 mmol/L (24-29)
[2022-12-22 19:01] LABS: MUDS CUTOFF CONCENTRATIONS CUTOFF CONC BELOW:
[2022-12-22] MEDS ORDERED: LORazepam 2 MG/ML VIAL IVP STA (19:05)
[2022-12-22 19:06] LABS: BUN - BLOOD UREA NITROGEN 8 mg/dL (6-20); CALCIUM 8.6 mg/dL (8.5-10.3); CARBON DIOXIDE - CO2 22 mmol/L (21-32); CREATININE 0.5 mg/dL (0.4-1.0); ETOH - ETHANOL < 5.0 mg/dL; GFR - MDRD 125 (>89); GLUCOSE 160 mg/dL (70-100); POTASSIUM 3.1 mmol/L (3.5-5.0)
[2022-12-22 19:08] LABS: CHLORIDE 78 mmol/L (101-111); SODIUM 115 mmol/L (135-145)
[2022-12-22] MEDS ORDERED: POTASSIUM CHLOR 10 MEQ/100 ML 10 MEQ/100 ML BAG IV ONE (19:11)
[2022-12-22] MEDS ORDERED: SODIUM CHLORIDE 0.9% 1,000 ML IV STA (19:12)
[2022-12-22 19:14] LABS: AMPHETAMINE SCREEN,URINE NEGATIVE (NEGATIVE); BARBITURATE SCREEN,UR NEGATIVE (NEGATIVE); BENZODIAZEPINES SCREEN, URINE NEGATIVE (NEGATIVE); COCAINE SCREEN URINE NEGATIVE (NEGATIVE); METHADONE SCREEN, URINE NEGATIVE (NEGATIVE); METHAMPHETAMINES SCREEN, URINE NEGATIVE (NEGATIVE); OPIATE SCREEN, URINE NEGATIVE (NEGATIVE); OXYCODONE SCREEN, URINE NEGATIVE (NEGATIVE); PROPOXYPHENE SCREEN, URINE NEGATIVE (NEGATIVE); THC CANNABINOID SCREEN, URINE NEGATIVE (NEGATIVE); TRICYCLIC ANTIDEPRESSANT,URINE NEGATIVE (NEGATIVE)
[2022-12-22] MEDS ORDERED: PROCHLORPERAZINE 10 MG/2 ML VIAL IVP STA (19:17)
[2022-12-22] MEDS ORDERED: ACETAMINOPHEN 500 MG TABLET PO PRN (19:40)
[2022-12-22 20:00] LABS: MAGNESIUM 1.6 mg/dL (1.7-2.8); PHOSPHORUS 2.8 mg/dL (2.5-4.6)
[2022-12-22] MEDS ORDERED: SODIUM CHLORIDE 3% HYPERTONIC 100 ML IV SCH (20:00)
[2022-12-22] MEDS ORDERED: iohexoL-300 100 ML VIAL IVP ONE (20:10)
--- NOTE | 2022-12-22 20:29 | CT Report ---
PROCEDURE: ANGIO HEAD W/WO INDICATIONS: ams, poss cva sx CONTRAST: 80mL Omni 300 TECHNIQUE: Precontrast 4.5 mm thick angled axial sections acquired from the foramen magnum to the vertex. Afte r the administration of intravenous contrast, 1 mm thick sections acquired through the [place] of [place] is. Postcontrast 4.5 mm thick sections then re-acquired from the foramen magnum to the vertex. 3-di mensional yyupxyg-xkkltxdqt-dtmajweego (MIP) and/or volume rendering reformats were acquired of the c entral intracranial vasculature. For radiation dose reduction, the following was used: automated ex posure control, adjustment of mA and/or kV according to patient size. COMPARISON: MRI brain 06/10/2022, CT head 12/11/2018 FINDINGS: Image quality: Excellent. BRAIN: CSF spaces: Basal cisterns are patent. No extra-axial fluid collections. Ventricles are normal in size and shape. Brain: No intracranial hemorrhage, mass, or mass effect. Benton-white matter interface appears preser skinny. No abnormal intracranial enhancement. Skull and face: Calvarium and facial bones appear intact, without suspicious lesions. Orbits appear normal. Sinuses: There is mild mucosal thickening within the ethmoid sinuses. Mastoid air cells are clear. HEAD CT ANGIOGRAPHY: Anterior circulation: Intracranial internal carotid arteries are normal in size and appear patent bi laterally. There is mild atherosclerotic calcification along the cavernous segments of the internal carotid arteries. The paired anterior cerebral arteries appear patent bilaterally. The anterior com municating artery also appears patent. The middle cerebral arteries appear patent bilaterally. No hi gh-grade stenosis, occlusion, or filling defects. No cerebral aneurysms identified. Posterior circulation: Visualized portions of the vertebral arteries demonstrate normal caliber, and join to form a patent basilar artery. The posterior cerebral arteries appears patent bilaterally. No high-grade stenosis, occlusion, or filling defects. No cerebral aneurysms identified. IMPRESSION: 1. No acute intracranial abnormality. 2. No high-grade stenosis or occlusion of the central intracranial arteries. Reviewed by: Wolf Sweet MD on 12/22/2022 8:27 PM PDT Approved by: Wolf Sweet MD on 12/22/2022 8:27 PM PDT Station ID: [id number]
--- NOTE | 2022-12-22 20:34 | CT Report ---
PROCEDURE: ANGIO NECK W INDICATIONS: ams, poss cva sx CONTRAST: 80mL Omni 300 TECHNIQUE: After the administration of intravenous contrast, 1.5 mm axial sections acquired from the aortic arch to the [place] of [place]. Coronal 3-D maximum intensity projection (MIP) and/or volume rendering ref ormats were then performed. For radiation dose reduction, the following was used: automated exposur e control, adjustment of mA and/or kV according to patient size. COMPARISON: Concurrent CTA head. FINDINGS: Image quality: Excellent. NECK CT ANGIOGRAPHY: Carotid system: The great vessels demonstrate a conventional anatomy as they arise from the aortic a rch. The origins of the common carotid arteries appear patent. The common carotid arteries short se gments of mild narrowing of less than 25% secondary to mild atherosclerotic plaque. There is mild par tially calcified plaque in the carotid bulbs with associated mild narrowing of less than 50% bilatera lly. The subsequent internal carotid arteries demonstrate normal calibers and courses. Posterior circulation: The origins of the vertebral arteries both appear patent. The more superior extracranial portions of both vertebral arteries also demonstrate normal courses and calibers. They join to form a patent basilar artery. Soft tissues: Visualized neck soft tissues demonstrate no suspicious abnormalities. Bones: No suspicious bony lesions. Visualized cervical spine demonstrates straightening of the cerv ical lordosis. Minimal anterolisthesis demonstrated at C3-C4 and C7-T1. There is multilevel degenerat venkat disc disease and facet joint arthropathy. IMPRESSION: 1. No high-grade stenosis or occlusion of the head and neck arteries. 2. Mild narrowing of less than 20% in the carotid bulbs. The estimate of stenosis included in the report of the imaging study was calculated using the NASCET method Reviewed by: Wolf Whiting MD on 12/22/2022 8:33 PM PDT Approved by: Wolf Whiting MD on 12/22/2022 8:33 PM PDT Station ID: [id number]
[2022-12-22] MEDS ORDERED: MAGNESIUM OXIDE 400 MG TABLET PO STA (20:46)
[2022-12-22] MEDS ORDERED: POTASSIUM CHLORIDE 20 MEQ TABLET PO STA (20:46)
[2022-12-22 22:19] LABS: BILIRUBIN,URINE NEGATIVE (NEGATIVE); GLUCOSE, URINE (UA) NEGATIVE (NEGATIVE); KETONES,URINE (UA) 15 mg/dL (NEGATIVE); LEUKOCYTE ESTERASE, URINE NEGATIVE (NEGATIVE); NITRITE,URINE POSITIVE (NEGATIVE); OCCULT BLOOD,URINE TRACE-INTA (NEGATIVE); PROTEIN,URINE NEGATIVE (NEGATIVE); UROBILINOGEN,URINE 0.2 (NORMAL) E.U./dL (NORMAL)
[2022-12-22 22:37] LABS: CLARITY,URINE HAZY (CLEAR)
[2022-12-22 22:39] LABS: BACTERIA,URINE Many /HPF (None Seen); RBC,URINE 0-5 /HPF (0-5); SQUAMOUS EPITHELIAL CELL,UR FEW Squamous (<= Few); WBC CLUMPS,URINE PRESENT
[2022-12-23 00:28] LABS: CALCIUM 8.7 mg/dL (8.5-10.3); CREATININE 0.4 mg/dL (0.4-1.0); POTASSIUM 3.8 mmol/L (3.5-5.0)
[2022-12-23 05:34] LABS: BASOPHILS % (AUTO) 0.4 %; EOSINOPHILS # (AUTO) 0.1 10^3/uL (0.0-0.7); EOSINOPHILS % (AUTO) 1.2 %; HCT - HEMATOCRIT 39.7 % (37.0-47.0); HGB - HEMOGLOBIN 14.3 g/dL (12.0-16.0); LYMPHOCYTES # (AUTO) 1.1 10^3/uL (1.5-3.5); LYMPHOCYTES % (AUTO) 11.5 %; MEAN CORPUSCULAR HEMOGLOBIN 32.5 pg (27.0-31.0); MEAN CORPUSCULAR VOLUME 90.2 fL (81.0-99.0); MEAN PLATELET VOLUME 8.4 fL (7.9-10.8); MONOCYTES % (AUTO) 10.4 %; NEUTROPHILS # (AUTO) 7.5 10^3/uL (1.5-6.6); NEUTROPHILS % (AUTO) 76.1 %; PLT - PLATELET COUNT 412 10^3/uL (130-450); RED CELL DISTRIBUTION WIDTH 12.3 % (12.0-15.0); WHITE BLOOD COUNT 9.9 x10^3/uL (4.8-10.8)
[2022-12-23 05:43] LABS: CALCIUM 8.8 mg/dL (8.5-10.3); CREATININE 0.4 mg/dL (0.4-1.0); POTASSIUM 3.8 mmol/L (3.5-5.0)
[2022-12-23] MEDS ORDERED: PANTOPRAZOLE 40 MG TABLET PO SCH (07:00)
[2022-12-23] MEDS ORDERED: DULoxetine 30 MG CAPSULE PO SCH (09:00)
[2022-12-23] MEDS ORDERED: LOSARTAN 50 MG TABLET PO SCH (09:00)
[2022-12-23] MEDS ORDERED: ENOXAPARIN 40 MG/0.4 ML SYRINGE SUBQ SCH (09:00)
[2022-12-23] MEDS ORDERED: DULoxetine 60 MG CAPSULE PO SCH (09:00)
[2022-12-23] MEDS ORDERED: DEXTROSE 5% 500 ML IV ONE (10:00)
[2022-12-23] MEDS: DEXTROSE 5% 500 ML IV SCH ×3 (10:01→10:48)
[2022-12-23 10:40] LABS: CALCIUM 8.6 mg/dL (8.5-10.3); CREATININE 0.5 mg/dL (0.4-1.0); MAGNESIUM 2.2 mg/dL (1.7-2.8); POTASSIUM 3.5 mmol/L (3.5-5.0)
[2022-12-23 11:43] VITALS: BP 175/95
--- NOTE | 2022-12-23 11:45 | ED Physician Documentation ---
ED Addendum - Addendum Addendum: 12/23/22 11:44 She is doing much better this morning, we had corrected her a bit fast, with her sodium going from 115, up to 123 after about 6 hours, and up to 129. At that point I administered a bolus of D5, and then her sodium was back down to 124. She was awake and conversant, alert and oriented this morning. She has no complaints. Now that she is a better historian she confides in me that she went on a 5-day gallardo where she was drinking only Dr. Morse. That and she had just started losartan/hydrochlorothiazide a couple of months ago, was previously on amlodipine with incomplete control of her hypertension. That combined with the oxcarbazepine, the poor oral intake, and the hydrochlorothiazide probably all contributed to her profound hyponatremia. Usually the plan would be to keep her a bit longer but she is demanding that she wants to go. She promises that she will have her roommate check on her and will eat regular food. She understands the need to stop oxcarbazepine and hydrochlorothiazide pending follow-up. Will readd losartan and amlodipine as her blood pressures are fairly elevated here. She does have bacteriuria. This is asymptomatic and she does not have symptoms of frequency or dysuria. Disposition: Discharged home Condition: Stable Diagnosis: 1. Hyponatremia 2. Poor oral intake 3. Hypertension 12/23/22 12:33
== END 2022-12-23 12:11 | disposition home or self-care (01) ==
LOC: EDUNIT# → ED 18:17
DX: E87.1 Hypo-osmolality and hyponatremia (principal); R41.0 Disorientation, unspecified; I10 Essential (primary) hypertension; F17.210 Nicotine dependence, cigarettes, uncomplicated
CPT/HCPCS: 36415; 70496; 70498; 80048; 80306; 80320; 81001; 82803; 83735; 84100; 84300; 85025; 87077; 87086; 87181; 93005; 96361; 96365; 96372; 96375; 99284; A9270; J1650; J2060; J3490; Q9967; 81003

== ENCOUNTER 2023-01-16 10:27 | Outpatient (CLI) | payer MEDICAID | END 2023-01-16 23:59 | disposition critical access hospital (66) | LOC: EMS 10:27 | DX: R53.1 Weakness (principal) | CPT/HCPCS: A0425; A0429 ==

== ENCOUNTER 2023-01-16 10:39 | Emergency (ER) | payer MEDICAID ==
[2023-01-16] MEDS ORDERED: THIAMINE INJ 100 MG in SODIUM CHLORIDE 0.9% 50 ML IV STA (10:57)
[2023-01-16] MEDS ORDERED: SODIUM CHLORIDE 0.9% 1,000 ML IV STA (10:57)
[2023-01-16 11:12] LABS: BASOPHILS # (AUTO) 0.1 10^3/uL (0.0-0.1); EOSINOPHILS # (AUTO) 0.2 10^3/uL (0.0-0.7); EOSINOPHILS % (AUTO) 1.8 %; HCT - HEMATOCRIT 40.3 % (37.0-47.0); HGB - HEMOGLOBIN 14.7 g/dL (12.0-16.0); LYMPHOCYTES # (AUTO) 1.2 10^3/uL (1.5-3.5); LYMPHOCYTES % (AUTO) 11.6 %; MEAN CORPUSCULAR HEMOGLOBIN 32.9 pg (27.0-31.0); MEAN CORPUSCULAR HGB CONC 36.5 g/dL (32.0-36.0); MEAN CORPUSCULAR VOLUME 90.2 fL (81.0-99.0); MEAN PLATELET VOLUME 7.9 fL (7.9-10.8); MONOCYTES # (AUTO) 0.8 10^3/uL (0.0-1.0); MONOCYTES % (AUTO) 7.3 %; NEUTROPHILS # (AUTO) 8.1 10^3/uL (1.5-6.6); NEUTROPHILS % (AUTO) 77.7 %; PLT - PLATELET COUNT 428 10^3/uL (130-450); RED BLOOD COUNT 4.47 10^6/uL (4.20-5.40); RED CELL DISTRIBUTION WIDTH 12.9 % (12.0-15.0); WHITE BLOOD COUNT 10.5 x10^3/uL (4.8-10.8)
[2023-01-16 11:15] LABS: VBG PH 7.496 (7.31-7.41)
[2023-01-16 11:16] LABS: VBG BASE EXCESS 0.6 mmol/L (-2 - +2); VBG HCO3 22.7 mmol/L (23-28); VBG OXYGEN SATURATION 90.9 % (60-80); VBG PO2 55.8 mmHg (25-47); VBG TOTAL CO2 23.6 mmol/L (24-29)
[2023-01-16 11:27] LABS: ACETAMINOPHEN < 10 ug/mL (10-30); ALBUMIN/GLOBULIN RATIO 1.3 (1.0-2.2); ALKALINE PHOSPHATASE 108 IU/L (42-121); ALT ALANINE AMINOTRANSFERASE 21 IU/L (10-60); AST ASPARTATE AMINOTRANSFERASE 23 IU/L (10-42); BILIRUBIN,TOTAL 0.4 mg/dL (0.2-1.0); BUN - BLOOD UREA NITROGEN 8 mg/dL (6-20); CALCIUM 8.5 mg/dL (8.5-10.3); CARBON DIOXIDE - CO2 23 mmol/L (21-32); CHLORIDE 94 mmol/L (101-111); CREATININE 0.4 mg/dL (0.4-1.0); ETOH - ETHANOL < 5.0 mg/dL; GFR - MDRD 162 (>89); GLUCOSE 112 mg/dL (70-100); LIPASE 40 U/L (22-51); POTASSIUM 3.6 mmol/L (3.5-5.0); SALICYLATE < 6.0 mg/dL; SODIUM 131 mmol/L (135-145); TOTAL PROTEIN 7.1 g/dL (6.7-8.2)
[2023-01-16 11:43] LABS: KETONES, SERUM (ACETEST) NEGATIVE (NEGATIVE)
--- NOTE | 2023-01-16 11:57 | ED Physician Documentation ---
History of Present Illness - Stated complaint Stated Complaint: GEN WEAKNESS - Chief complaint Chief Complaint: General - History obtained from History obtained from: Patient - Additonal information Additional information: 62-year-old woman presents with leg and arm burning. She says it started this morning around 8. Still hearted in both feet and then moved up and then went to both arms. Its not actually painful. She is feels like she is jittery and has a sense of impending doom. She was seen about a month ago for a similar issue. At that time her initial sodium was 115. She was not admitted due to hospital capacity and was corrected in the emergency department and subsequently discharged from the emergency department after almost 24 hours. She says this feels similar but worse. Since that time, month ago, she was changed from losartan/HCTZ to just losartan because of the hyponatremia. 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 : None HEENT: Chronic vision loss Psych: Depression, Anxiety Musculoskeletal: Osteoarthritis Derm: None - Past Surgical History Past Surgical History: Yes General: Colonoscopy Ortho: Arthroscopic surgery, Other /AIRCRAFT MAINTENANCE TECHNICIAN: 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 - Present Medications Home Medications: Ambulatory Orders Medication Instructions Recorded Confirmed DULoxetine [Cymbalta] 90 mg PO DAILY 10/22/17 06/10/22 Gabapentin 1,200 mg PO QPM 10/22/17 06/10/22 lamoTRIgine [Lamictal] 150 mg PO DAILY 10/22/17 06/10/22 Acetaminophen/Diphenhydramine 3 each PO QPM 08/29/20 08/09/21 [Acetaminophen-Diphenhyd 500-25] traZODone [Desyrel] 50 mg PO HS 08/29/20 06/10/22 Morphine Ir [Ms Ir] 15 mg PO Q6H PRN #20 tablet 08/20/22 Oxycodone HCl/Acetaminophen 1 - 2 each PO Q6H PRN #14 tablet 08/20/22 [Percocet 5-325 mg Tablet] Losartan [Cozaar] 50 mg PO DAILY #30 tablet 12/22/22 amLODIPine [Norvasc] 10 mg PO DAILY #30 tablet 12/23/22 Propranolol [Inderal] 10 mg PO BID #90 tablet 01/16/23 - Allergies Allergies/Adverse Reactions: Allergies Allergy/AdvReac Type Severity Reaction Status Date / Time Sulfa (Sulfonamide Allergy Rash Verified 12/22/22 18:28 Antibiotics) codeine AdvReac Emesis Verified 12/22/22 18:28 - Social History Does the pt smoke?: Yes Smoking Status: Current every day smoker Does the pt drink ETOH?: Yes Does the pt have substance abuse?: No - Immunizations Immunizations are current?: Yes - POLST Patient has POLST: No PD ED PE NORMAL - Vitals Vital signs reviewed: Yes - General General: Alert and oriented X 3, Other (Slightly anxious.) - HEENT HEENT: PERRL, EOMI - Neck Neck: Supple, no meningeal sign, No bony TTP - Cardiac Cardiac: RRR, No murmur - Respiratory Respiratory: No respiratory distress, Clear bilaterally - Abdomen Abdomen: Normal bowel sounds, Soft, Non tender - Derm Derm: Normal color, Warm and dry - Extremities Extremities: No edema, No calf tenderness / cord, Other (Normal lower extremity reflexes and sensation) - Neuro Neuro: Alert and oriented X 3, No motor deficit, No sensory deficit, Normal speech Eye Opening: Spontaneous Motor: Obeys Commands Verbal: Oriented GCS Score: 15 - Psych Psych: Normal mood Results - Vitals Vitals: Vital Signs - 24 hr 01/16/23 01/16/23 01/16/23 10:38 11:59 12:12 Temperature 37.0 C Heart Rate 96 95 91 Respiratory 29 H 14 Rate Blood Pressure 191/96 H 194/113 H 194/113 H O2 Saturation 99 100 Oxygen O2 Source Room air - Labs Labs: Laboratory Tests 01/16/23 01/16/23 01/16/23 11:07 11:07 11:07 WBC 10.5 RBC 4.47 Hgb 14.7 Hct 40.3 MCV 90.2 MCH 32.9 H MCHC 36.5 H RDW 12.9 Plt Count 428 MPV 7.9 Neut # (Auto) 8.1 H Lymph # (Auto) 1.2 L [place] # (Auto) 0.8 Eos # (Auto) 0.2 Baso # (Auto) 0.1 Absolute Nucleated RBC 0.00 Nucleated RBC % 0.0 VBG pH 7.496 H VBG pCO2 30.0 L VBG pO2 55.8 H VBG HCO3 22.7 L VBG Total CO2 23.6 L VBG O2 Saturation 90.9 H VBG Base Excess 0.6 Sodium 131 L Potassium 3.6 Chloride 94 L Carbon Dioxide 23 Anion Gap 14.0 H BUN 8 Creatinine 0.4 Estimated GFR (MDRD) 162 Glucose 112 H Calcium 8.5 Magnesium 2.0 Total Bilirubin 0.4 AST 23 ALT 21 Alkaline Phosphatase 108 Total Protein 7.1 Albumin 4.0 Globulin 3.1 Albumin/Globulin Ratio 1.3 Lipase 40 Salicylates < 6.0 Acetaminophen < 10 L Ethyl Alcohol < 5.0 Serum Ketones NEGATIVE PD Medical Decision Making - ED course ED course: 62-year-old woman presents with a chief complaint that frankly sounds like peripheral neuropathy, that said the time course would be atypical given that she had it when she had a significant hyponatremia last month, and was fine again until today. There is nothing remarkable on examination. CBC reviewed with mild macrocytosis. Venous blood gas consistent with mild respiratory alkalosis. CMP reviewed showing modest hyponatremia much better than last month. No salicylates or alcohol on board. She was administered some IV fluids. I asked her if she thought any of this might be anxiety given that her complaint did include a sense of impending doom. She said no but then also said that she could possibly go home feeling like this. I discussed with her that there really was not an indication for admission to the hospital. She has no pain. I think it is reasonable to treat her blood pressure noting that it is as high as 194/113 here. I think a beta-lory that permeates the blood-brain barrier would also be ideal for the sense of impending doom and as such propranolol was started. Aortic dissection was considered but given her complaints of bilateral arm and leg burning without pain and no pain in the back, chest or abdomen, this is considered incredibly unlikely. Departure - Departure Disposition: 01 Home, Self Care Clinical Impression: Hyponatremia Hypertension Qualifiers: Hypertension type: unspecified Qualified Code(s): I10 - Essential (primary) hypertension Condition: Stable Record reviewed to determine appropriate education?: Yes Instructions: ED Neuropathy Peripheral, ED Hypertension Conf Out Of Control Prescriptions: Propranolol [Inderal] 10 mg PO BID #90 tablet Comments: Your sodium is much better than it was last month. Blood pressure is high though, reasonable to start a third medication for this. Extensive testing otherwise was relatively unremarkable. Call your doctor to arrange a follow-up appointment, make the next available appointment. In the interim, return anytime if worse or if new symptoms develop.
[2023-01-16 12:02] VITALS: BP 194/113
[2023-01-16] MEDS ORDERED: PROPRANOLOL 10 MG TABLET PO STA (12:06)
[2023-01-16] MEDS ORDERED: THIAMINE INJ 100 MG in SODIUM CHLORIDE 0.9% 50 ML IV ONE (13:00)
== END 2023-01-16 13:20 | disposition home or self-care (01) ==
LOC: EDUNIT# → ED 10:39
DX: E87.1 Hypo-osmolality and hyponatremia (principal); I10 Essential (primary) hypertension; F17.200 Nicotine dependence, unspecified, uncomplicated
CPT/HCPCS: 36415; 80053; 80307; 80320; 80329; 82009; 82803; 83690; 83735; 85025; 96374; 99283; 99284; A9270; J3411; J7040

== ENCOUNTER 2023-02-06 10:28 | Outpatient (CLI) | payer MEDICAID ==
[~2023-02-06 10:28] MED LIST changes: -CEFAZOLIN SODIUM IN 0.9 % NACL 2 GM/100 ML BAG IV ONE; +GADOBUTROL 7.5 MMOL/7.5 ML VIAL ONE
[2023-02-06] MEDS: GADOBUTROL 7.5 MMOL/7.5 ML VIAL IVP ONE (11:31)
--- NOTE | 2023-02-06 12:28 | MRI Report ---
PROCEDURE: BRAIN W/WO INDICATIONS: PINEAL CYST CONTRAST: gadavist 5.2 ml TECHNIQUE: Noncontrast axial T1 spin echo, axial T2 fast spin echo, sagittal and axial FLAIR, coronal T2 fast sp in echo, axial gradient echo, axial diffusion and ADC through the brain. After the administration of contrast, axial and coronal T1 spin echo with fat saturation through the brain. COMPARISON: 1122. Correlation is also made with CT examinations, 12/22/2022. FINDINGS: Image quality: Excellent. CSF spaces: Basal cisterns are patent. No extra-axial fluid collections. Ventricles are normal in size and shape. Brain: A nonenhancing pineal region cyst is again seen, as on series 14 image 82 that measures up to 7 mm. No midline shift. No intracranial bleeds or masses. No abnormal intracranial enhancement. There is cerebral volume loss for age. There is periventricular white matter chronic small vessel ischemic c hange. The brainstem appears normal. Diffusion-weighted images demonstrate no acute ischemic insult s. No chronic ischemic insults. Normal intravascular flow voids are present. Skull and face: Calvarial marrow is normal in signal. Orbits appear normal. Sinuses: Mild mucosal thickening can be seen within the posterior maxillary sinuses. Mild mucosal thi ckening is seen elsewhere within the paranasal sinuses. There is mild rightward nasal septal deviatio n. No significant abnormal fluid can be seen within the mastoid air cells. 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 Otherwise, unremarkable brain MRI for age. Reviewed by: Andrez Gonzalez MD on 02/06/2023 11:27 AM [facility] Approved by: Andrez Gonzalez MD on 02/06/2023 11:27 AM [facility] Station ID: [id number]
== END 2023-02-06 10:29 | disposition home or self-care (01) ==
LOC: DI 10:28
PROVIDERS: ATTEND Physician Assistant
DX: G93.0 Cerebral cysts (principal); H57.00 Unspecified anomaly of pupillary function

== ENCOUNTER 2023-10-05 08:00 | Outpatient (CLI) | payer MEDICAID ==
--- NOTE | 2023-10-05 16:28 | XRAY Report ---
PROCEDURE: Knee 4 View LT INDICATIONS: LEFT KNEE PAIN TECHNIQUE: 4 views of the knee(s) were acquired. COMPARISON: None. FINDINGS: Bones: No fractures or dislocations. No suspicious bony lesions. Surgical fixation of the patella . Tricompartmental joint space narrowing with associated osteophytosis. Soft tissues: No knee joint effusion. No suspicious soft tissue calcifications or masses. IMPRESSION: Surgical fixation of the patella, without hardware complication. Mild to moderate tricompartmental osteoarthritis. Kellgren-Pepe scale of osteoarthritis: 2. Reviewed by: David Sanchez MD on 10/05/2023 4:26 PM [facility] Approved by: David Sanchez MD on 10/05/2023 4:26 PM [facility] Station ID: [id number]
== END 2023-10-05 23:59 | disposition home or self-care (01) ==
LOC: DI.WOS 08:00
PROVIDERS: ATTEND Orthopaedic Surgery
DX: Z96.698 Presence of other orthopedic joint implants (principal); M17.12 Unilateral primary osteoarthritis, left knee

== ENCOUNTER 2023-11-10 10:58 | Outpatient (CLI) | payer MEDICAID ==
[2023-11-10 11:13] LABS: BASOPHILS # (AUTO) 0.1 10^3/uL (0.0-0.1); EOSINOPHILS # (AUTO) 0.6 10^3/uL (0.0-0.7); EOSINOPHILS % (AUTO) 6.5 %; HCT - HEMATOCRIT 44.4 % (37.0-47.0); HGB - HEMOGLOBIN 14.7 g/dL (12.0-16.0); LYMPHOCYTES % (AUTO) 34.4 %; MEAN CORPUSCULAR HEMOGLOBIN 30.2 pg (27.0-31.0); MEAN CORPUSCULAR HGB CONC 33.1 g/dL (32.0-36.0); MEAN CORPUSCULAR VOLUME 91.2 fL (81.0-99.0); MEAN PLATELET VOLUME 8.8 fL (7.9-10.8); MONOCYTES # (AUTO) 0.8 10^3/uL (0.0-1.0); MONOCYTES % (AUTO) 8.6 %; NEUTROPHILS # (AUTO) 4.3 10^3/uL (1.5-6.6); NEUTROPHILS % (AUTO) 49.2 %; PLT - PLATELET COUNT 421 10^3/uL (130-450); RED BLOOD COUNT 4.87 10^6/uL (4.20-5.40); WHITE BLOOD COUNT 8.8 x10^3/uL (4.8-10.8)
[2023-11-10 11:27] LABS: ALBUMIN 4.3 g/dL (3.2-5.5); ALBUMIN/GLOBULIN RATIO 1.3 (1.0-2.2); ALKALINE PHOSPHATASE 156 IU/L (42-121); ALT ALANINE AMINOTRANSFERASE 40 IU/L (10-60); AST ASPARTATE AMINOTRANSFERASE 21 IU/L (10-42); BILIRUBIN,TOTAL 0.4 mg/dL (0.2-1.0); BUN - BLOOD UREA NITROGEN 15 mg/dL (6-20); CALCIUM 9.7 mg/dL (8.5-10.3); CARBON DIOXIDE - CO2 29 mmol/L (21-32); CHLORIDE 94 mmol/L (101-111); CHOL/HDL RATIO 7.9 (<4.4); CHOLESTEROL 285 mg/dL; CREATININE 0.7 mg/dL (0.6-1.3); GFR - MDRD 85 (>89); GLUCOSE 95 mg/dL (74-104); HDL CHOLESTEROL 36 mg/dL; LDL CHOLESTEROL,CALCULATED 216 mg/dL; POTASSIUM 3.5 mmol/L (3.5-4.5); SODIUM 130 mmol/L (135-145); TOTAL PROTEIN 7.7 g/dL (6.4-8.9); TRIGLYCERIDES 164 mg/dL (48-352); VLDL CHOLESTEROL 33 mg/dL
[2023-11-10 11:41] LABS: THYROID STIMULATING HORMONE 3.57 uIU/mL (0.34-5.60)
== END 2023-11-10 10:59 | disposition home or self-care (01) ==
LOC: LAB 10:58
PROVIDERS: ATTEND Nurse Practitioner Family
DX: I10 Essential (primary) hypertension (principal); E78.5 Hyperlipidemia, unspecified; E55.9 Vitamin D deficiency, unspecified; Z13.29 Encounter for screening for other suspected endocrine disorder
CPT/HCPCS: 36415; 80050; 80061; 82306; 83721

== ENCOUNTER 2023-11-12 06:53 | Day surgery (SDC) | payer MEDICAID ==
[2023-11-12] MEDS ORDERED: PROPOFOL 500 MG/50 ML 500 MG/50 ML VIAL ONE (06:58)
[2023-11-12] MEDS: LACTATED RINGERS 1,000 ML IV ONE ×3 (07:04→09:28)
--- NOTE | 2023-11-12 08:07 | ANESTHESIA ---
Pre-Anesthesia VS, & Labs - Diagnosis Screening exam - Procedure colonoscopy Vital Signs: Temp Pulse Resp BP Pulse Ox O2 Flow Rate 36.1 C L 79 14 137/94 H 100 11/12/23 07:00 11/12/23 07:00 11/12/23 07:00 11/12/23 07:00 11/12/23 07:00 Height: 5 ft 8 in Weight (kg): 68.8 kg Body Mass Index: 23.1 BMI Classification: Normal - NPO >8 hours - Is Patient ?: No Home Medications and Allergies Home Medications: Ambulatory Orders hydroCHLOROthiazide [Hydrodiuril] 12.5 mg PO DAILY 11/11/23 Gabapentin 1,200 mg PO QPM 10/22/17 traZODone [Desyrel] 50 mg PO HS 08/29/20 hydroCHLOROthiazide [Hydrodiuril] 12.5 mg PO DAILY 11/11/23 Allergies/Adverse Reactions: Allergies Allergy/AdvReac Type Severity Reaction Status Date / Time Sulfa (Sulfonamide Allergy Rash Verified 12/22/22 18:28 Antibiotics) codeine AdvReac Emesis Verified 12/22/22 18:28 Anes History & Medical History - Anesthetic History Anesthesia Complications: reports: No previous complications - Medical History Cardiovascular: reports: Hypertension Pulmonary: reports: None Gastrointestinal: reports: Ulcers, Colon polyps, Other Urinary: reports: None Neuro: reports: Seizure disorder (last seizure 7 years ago) Musculoskeletal: reports: Osteoarthritis Endocrine/Autoimmune: reports: None Blood Disorders: reports: None Skin: reports: None Smoking Status: Current every day smoker (1/2 pack per day x 30 years) Psychosocial: reports: No issues indicated History of Cancer?: No - Surgical History General: reports: Colonoscopy Gynecologic: reports: 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 Orthopedic: reports: Arthroscopic surgery, Other Exam General: Alert, Oriented x3, Cooperative, No acute distress Dental: Dentures full Upper, Poor dentition Mouth Openin Fingerbreadth Neck Mobility: Normal Mallampati classification: II Thyromental Distance: 4-6 cm Mental/Cognitive Status: Alert/Oriented X3, Normal for patient Plan Anesthesia Type: General, Total IV Consent for Procedure(s) Verified and Reviewed: Yes Code Status: Attempt Resuscitation ASA classification: 2-Mild systemic disease Is this case an emergency?: No
[2023-11-12] MEDS ORDERED: MIDAZOLAM 2 MG/2 ML VIAL ONE (08:11)
--- NOTE | 2023-11-12 08:18 | HISTORY & PHYSICAL EXAMINATION ---
Chief Complaint - Chief Complaint Chief Complaint: here for colonoscopy History of Present Illness - History Obtained From Records Reviewed: yes History obtained from: pt Exam Limitations: none - History of Present Illness HPI Comment/Other: history distant colon polyps. 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 : reports: None HEENT: reports: Chronic vision loss Psych: reports: Depression, Anxiety Musculoskeletal: reports: Osteoarthritis Derm: reports: None MRSA Hx?: Yes - Past Surgical History General: reports: Colonoscopy Ortho: reports: Arthroscopic surgery, Other /BLOCK MACHINE OPERATOR: reports: 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 - POLST Patient has POLST: No Meds/Allgy - Home Medications Home Medications: Ambulatory Orders Medication Instructions Recorded Confirmed Gabapentin 1,200 mg PO QPM 10/22/17 11/11/23 traZODone [Desyrel] 50 mg PO HS 08/29/20 11/11/23 Losartan [Cozaar] 50 mg PO DAILY #30 tablet 12/22/22 11/11/23 amLODIPine [Norvasc] 10 mg PO DAILY #30 tablet 12/23/22 11/11/23 Propranolol [Inderal] 10 mg PO BID #90 tablet 01/16/23 11/11/23 hydroCHLOROthiazide [Hydrodiuril] 12.5 mg PO DAILY 11/11/23 11/11/23 - Allergies Allergies/Adverse Reactions: Allergies Allergy/AdvReac Type Severity Reaction Status Date / Time Sulfa (Sulfonamide Allergy Rash Verified 12/22/22 18:28 Antibiotics) codeine AdvReac Emesis Verified 12/22/22 18:28 Review of Systems - Other Findings Other Findings: 10 pt ros as above otherwise unremarkable Exam - Vital Signs Vital Signs: Vital Signs x48h Temp Pulse Resp BP Pulse Ox 11/12/23 07:00 36.1 C L 79 14 137/94 H 100 - Physical Exam General Appearance: positive: Alert Eyes Bilateral: positive: PERRL, EOMI ENT: positive: No signs of dehydration Neck: positive: No JVD, Trachea midline Respiratory: positive: No respiratory distress Cardiovascular: positive: Regular rate & rhythm Abdomen: positive: No distention Neurologic/Psychiatric: positive: Oriented x3 Conclusion/Plan - Problem List (1) Colon cancer screening Conclusion/Plan: plan colonoscopy. parq held and consent obtained
[2023-11-12] MEDS ORDERED: IPRATROPIUM/ALBUTEROL 3 ML NEB INH ONE (09:59)
[2023-11-12] MEDS: ACETAMINOPHEN 325 MG TABLET PO ONE (10:10)
[2023-11-12] MEDS ORDERED: ACETAMINOPHEN 500 MG TABLET PO ONE (10:14)
[2023-11-12] MEDS: ALBUTEROL NEB 2.5 MG/3 ML INH ONE (10:15)
[2023-11-12 10:51] VITALS: O2SAT 93
--- NOTE | 2023-11-12 11:03 | ANESTHESIA POST OP EVALUATION ---
Anesthesia Post Eval - Post Anesthesia Eval Vitals: Last Vital Signs Temp 36.3 C L 11/12/23 10:45 Pulse 86 11/12/23 10:45 Resp 22 11/12/23 10:45 BP 131/84 H 11/12/23 10:45 Pulse Ox 93 11/12/23 10:45 O2 Flow Rate CV Function Including HR & BP: Stable Pain Control: Satisfactory Nausea & Vomiting: Negative Mental Status: Baseline Respiratory Status: Airway Patent Hydration Status: Satisfactory Anesthesia Complications: Other - Other Details/Therapies Other Details/Therapies: Patient likely aspirated during the procedure. She had some inspiratory and expiratory wheezing with coughing immediately post op. O2 sats remained within a normal limit. She was given albuterol nebulizer and po tylenol for headache. She continued to improve and felt well enough to go home. Upon discharge, she was advised to return to the ER if she developed any respiratory distress or fever.
[2023-11-12 11:58] VITALS: BP 125/76
== END 2023-11-12 06:54 | disposition home or self-care (01) ==
LOC: SDS 06:53
PROVIDERS: ATTEND Surgery
PROC: 0DBL8ZZ Excision of Transverse Colon, Via Natural or Artificial Opening Endoscopic (ICD-10-PCS; 2023-11-12)
PROC: 0DBH8ZZ Excision of Cecum, Via Natural or Artificial Opening Endoscopic (ICD-10-PCS; 2023-11-12)
PROC: 0DBK8ZZ Excision of Ascending Colon, Via Natural or Artificial Opening Endoscopic (ICD-10-PCS; principal; 2023-11-12 08:00)
DX: Z12.11 Encounter for screening for malignant neoplasm of colon (principal); D12.4 Benign neoplasm of descending colon; D12.2 Benign neoplasm of ascending colon; D12.0 Benign neoplasm of cecum; D12.3 Benign neoplasm of transverse colon; K57.30 Diverticulosis of large intestine without perforation or abscess without bleeding; F17.210 Nicotine dependence, cigarettes, uncomplicated; I10 Essential (primary) hypertension
CPT/HCPCS: 45380; 45385; A9270; J7120

== ENCOUNTER 2023-11-25 10:46 | Outpatient (CLI) | payer MEDICAID ==
--- NOTE | 2023-11-25 16:22 | XRAY Report ---
PROCEDURE: Chest 2V INDICATIONS: URI TECHNIQUE: 2 views of the chest were acquired. COMPARISON: Chest x-ray 07/27/2019 FINDINGS: Surgical changes and devices: Bilateral humeral fixation. Lungs and pleura: No pleural effusions or pneumothorax. Lungs are clear. Mediastinum: Mediastinal contours appear normal. Heart size is normal. Bones and chest wall: No suspicious bony lesions. Overlying soft tissues appear unremarkable. IMPRESSION: No acute cardiopulmonary process. Reviewed by: Marion Sanabria MD on 11/25/2023 4:21 PM PDT Approved by: Marion Sanabria MD on 11/25/2023 4:21 PM PDT Station ID: [id number]
== END 2023-11-25 10:47 | disposition home or self-care (01) ==
LOC: DI 10:46
PROVIDERS: ATTEND Nurse Practitioner Family
DX: J06.9 Acute upper respiratory infection, unspecified (principal)

== ENCOUNTER 2024-02-23 10:15 | Outpatient (CLI) | payer MEDICAID ==
[2024-02-23 10:53] LABS: ALBUMIN 4.3 g/dL (3.2-5.5); ALBUMIN/GLOBULIN RATIO 1.2 (1.0-2.2); ALKALINE PHOSPHATASE 127 IU/L (42-121); ALT ALANINE AMINOTRANSFERASE 21 IU/L (10-60); AST ASPARTATE AMINOTRANSFERASE 21 IU/L (10-42); BILIRUBIN,TOTAL 0.4 mg/dL (0.2-1.0); BUN - BLOOD UREA NITROGEN 13 mg/dL (6-20); CALCIUM 9.8 mg/dL (8.5-10.3); CARBON DIOXIDE - CO2 32 mmol/L (21-32); CHLORIDE 95 mmol/L (101-111); CHOL/HDL RATIO 6.2 (<4.4); CHOLESTEROL 281 mg/dL; CREATININE 0.8 mg/dL (0.6-1.3); GFR - MDRD 72 (>89); GLUCOSE 82 mg/dL (74-104); HDL CHOLESTEROL 45 mg/dL; LDL CHOLESTEROL,CALCULATED 211 mg/dL; LDL/HDL RATIO 4.7 (<4.4); POTASSIUM 3.6 mmol/L (3.5-4.5); SODIUM 132 mmol/L (135-145); TOTAL PROTEIN 7.8 g/dL (6.4-8.9); TRIGLYCERIDES 123 mg/dL (48-352); VLDL CHOLESTEROL 25 mg/dL
== END 2024-02-23 10:16 | disposition home or self-care (01) ==
LOC: LAB 10:15
PROVIDERS: ATTEND Nurse Practitioner Family
DX: E78.5 Hyperlipidemia, unspecified (principal); E87.1 Hypo-osmolality and hyponatremia; E55.9 Vitamin D deficiency, unspecified
CPT/HCPCS: 36415; 80053; 80061; 82306; 83721